=== PATIENT | male | born 1940 | race Caucasian/White ===

== ENCOUNTER → 2018-02-08 11:56 | Outpatient (CLI) | payer MEDICARE, OTHER, SELFPAY ==
[2018-02-08 13:11] LABS: Alanine Aminotransferase 28 IU/L (21-72); Albumin 4.2 g/dL (3.5-5.0); Albumin Globulin Ratio 1.1 (1.0-2.8); Alkaline Phosphatase 56 U/L (38-126); Aspartate Aminotransferase 24 IU/L (17-59); BUN Creatinine Ratio 22.1 (6-22); Bilirubin Total 0.6 mg/dL (0.2-1.3); Blood Urea Nitrogen 31 mg/dL (9-20); Calcium 9.4 mg/dL (8.4-10.2); Carbon Dioxide 29 mmol/L (22-32); Chloride 99 mmol/L (98-107); Estimated Glomerular Filt Rate 49.3 mL/min (>60); Globulin 3.9 g/dL (1.7-4.1); Glucose 115 mg/dL (80-110); HEMOLYSIS < 15 (0-50); Sodium 140 mmol/L (137-145); Total Protein 8.1 g/dL (6.3-8.2)
== END ==
PROVIDERS: Family Provider Family Medicine; PCP Family Medicine; Visit Provider Internal Medicine Cardiovascular Disease
DX: I50.22 Chronic systolic (congestive) heart failure (principal)
CPT/HCPCS: 36415; 80053

== ENCOUNTER 2018-03-04 14:52 | Inpatient (IN) | payer MEDICARE, OTHER, SELFPAY ==
[2018-03-04] VITALS (14 sets, daily range): BP systolic 116–129; BP diastolic 68–75; PULSE 28–94; RESP 19–98; TEMP 36.6–37.8; O2SAT 88–99
--- NOTE | 2018-03-04 15:31 | DI.RAD.S_ITS ---
PROCEDURE: XR CHEST 1V INDICATIONS: suspected sepsis TECHNIQUE: One view of the chest was acquired. COMPARISON: [facility], , CHEST 1 VIEW, 04/06/2017, 14:58. FINDINGS: Surgical changes and devices: There is a left-sided Port-A-Cath central line identified with the tip unchanged in position. Lungs and pleura: There is developing interstitial prominence within the infrahilar region on the right. Mild elevation of the right diaphragm is similar to the prior study. No lobar consolidation or large effusion is appreciated. Mediastinum: Mediastinal contours appear normal. Heart size is normal. Bones and chest wall: No suspicious bony lesions. Overlying soft tissues appear unremarkable. IMPRESSION: Probable minimal scar versus atelectasis within the right infrahilar region. Superimposed pneumonia is difficult to exclude. Dictated by: Ramo Villasenor M.D. on 03/04/2018 at 15:54 Approved by: Ramo Villasenor M.D. on 03/04/2018 at 15:56
--- NOTE | 2018-03-04 15:35 | PC.NURSE ---
Done by Latoya Garcia RN
--- NOTE | 2018-03-04 15:37 | PC.NURSE ---
Port accessed in triage room and labs obtained. Patient placed in Rm 10 at this time and I called RT to bedside for EKG as well as possible nebulizer. Patient has coarse wheezing to auscultation, has not been using inhalers. states he has inhalers as needed for episodes like this when he gets sick. 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 Saw doctor this week who was busy and unable to test for the cancer coming back at that time. She states this is the first time he has been in the hospital in a long time.
[2018-03-04 15:43] LABS: Add Manual Diff / Slide Review NO; Basophils Percent Auto 1.1 % (0-2); Eosinophils Percent Auto 0.3 % (2-4); Hemoglobin 12.5 g/dL (13.5-17.5); Lymphocytes Percent Auto 7.5 % (25-40); Mean Corpuscular HGB Conc 33.9 % (30-36); Mean Corpuscular Hemoglobin 31.9 PG (26-34); Mean Corpuscular Volume 94.1 fL (80-100); Monocytes Percent Auto 7.2 % (3-14); Neutrophils Absolute Auto 5000 /uL (3000-5900); Neutrophils Percent Auto 83.9 % (50-75); Platelet Count 130 X10^3/uL (150-400); Red Blood Cell Count 3.93 X10^6/uL (4.5-5.9); Red Cell Distribution Width 17.8 % (11.6-14.8); White Blood Cell Count 5.9 X10^3/uL (4.5-11.0)
[2018-03-04] MEDS: ALBUTEROL/IPRATROPIUM 3 ML AMPUL INH (15:43)
[2018-03-04 15:46] LABS: Prothrombin Time 31.8 SECONDS (10.1-12.7)
--- NOTE | 2018-03-04 15:47 | ED_ITS ---
HPI - Fever General Chief Complaint: Fever Stated Complaint: COUGH,FEVER Time Seen by Provider: 03/04/18 15:47 Source: patient and family Mode of arrival: ambulatory Limitations: no limitations History of Present Illness HPI Narrative: 77-year-old male with a history of myelodysplastic syndrome here for evaluation of 3-4 days of not feeling well in shortness of breath with worsening of that last evening and into today. Patient states that he feels like he short of breath. No chest pain. Does have a productive cough. Does have a fever. States that he has not been ambulating however this may be secondary to pain in his left foot. states that he has been inactive for the past couple days. No recent antibiotics. Not currently on chemotherapy treatment. Related Data Home Medications Medication Instructions Recorded Confirmed calcitonin (salmon) 1 puff NS QDAY #3.7 ml 07/12/16 03/04/18 furosemide 40 mg PO QDAY 01/24/18 03/04/18 Glucose: Test Strips 1 str MISCELLANEOUS DIRECTED 03/04/18 03/04/18 hydrocortisone 10 mg PO BEDTIME 03/04/18 03/04/18 hydrocortisone 30 mg PO BID 03/04/18 03/04/18 metoprolol tartrate 25 mg PO BID 03/04/18 03/04/18 omeprazole 20 mg PO BEDTIME 03/04/18 03/04/18 warfarin [Coumadin] 1 mg PO MOWEFR 03/04/18 03/04/18 warfarin [Coumadin] 3 mg PO QPM 03/04/18 03/04/18 Previous Rx's Medication Instructions Recorded metformin [Glucophage] 500 mg PO BIDCC #60 tab 11/24/17 potassium chloride [Klor-Con M20] 20 meq PO TIDCC #90 tab 11/30/17 famciclovir 250 mg PO Q12H #120 tab 01/24/18 tramadol 50 mg tablet 50 mg PO Q4H PRN #60 tab 02/23/18 Allergies Allergy/AdvReac Type Severity Reaction Status Date / Time No Known Drug Allergies Allergy Unknown Unverified 03/04/18 14:23 [NO KNOWN DRUG ALLERGIES] promethazine [PROMETHAZINE] AdvReac Unknown restlessnes Unverified 03/04/18 14: 23 s Review of Systems Constitutional Reports body ache(s), Reports chills, Reports fatigue, Reports fever(s), Denies headache(s), Reports lethargy and Reports malaise ENT Ears, Nose, Mouth, and Throat: Denies headache(s) Cardiovascular Denies chest pain, Denies palpitations and Denies dyspnea Respiratory Denies cough and Denies dyspnea Neurologic Denies headache(s) Endocrine Reports fatigue and Denies palpitations PFSH Family History Mother Dementia Social History Smoking Status: Never smoker Exam Initial Vital Signs Initial Vital Signs: Vital Signs Temperature 100.1 F H 03/04/18 14:56 Pulse Rate 93 H 03/04/18 14:56 Respiratory Rate 22 03/04/18 14:56 Blood Pressure 128/74 H 03/04/18 14:56 Pulse Oximetry 93 03/04/18 14:56 Const General: cooperative, comfortable, well groomed and No acute distress HENMT Head: normal to inspection and normocephalic Ears: TM's normal bilaterally Resp Effort & Inspection: able to speak in complete sentences, audible wheezes, cough , labored, no nasal flaring, no retractions, no stridor and tachypneic Auscultation: crackles bilaterally, rhonchi upper bilaterally and lower bilaterally and wheezes right lower and right upper Cardio Rate: regular rate Rhythm: regular rhythm Pulses: radial pulses present GI Inspection: non-distended Palpation: soft, No firm and No guarding Neuro General: alert, awake and oriented x3 Cognition: normal cognition Speech: speech normal Extrem General: normal to inspection and full ROM Course Orders Ordered: ED Orders 03/04/18 15:15 Complete Blood Count AUTO DIFF Stat Lactate (Lactic Acid) Stat Partial Thromboplastin Time Stat Procalcitonin Stat Prothrombin Time INR Stat 03/04/18 15:30 Blood Culture Stat 03/04/18 15:31 XR chest 1V Stat Comprehensive Metabolic Panel Stat Lipase Stat 03/04/18 15:44 EKG-12 Lead Stat 03/04/18 17:14 Partial Thromboplastin Time Stat Levofloxacin (Levaquin) 750 mg in 150 mls @ 100 mls/hr IV NOW ONE Stop: 03/04/18 18:01 Last Admin: 03/04/18 16:41 Dose: 100 mls/hr Discontinued Medications Acetaminophen (Tylenol) 650 mg PO NOW ONE Stop: 03/04/18 16:33 Last Admin: 03/04/18 16:41 Dose: 650 mg Albuterol/Ipratropium (Duoneb) 3 ml INH NOW ONE Stop: 03/04/18 15:42 Last Admin: 03/04/18 15:43 Dose: 3 ml Vital Signs - 8 hr 03/04/18 14:56 03/04/18 15:25 03/04/18 15:30 Temperature 100.1 F H Pulse Rate 93 H 94 H 28 L Respiratory Rate 22 33 H 98 H Blood Pressure 128/74 H Blood Pressure [Left Arm] 118/68 Blood Pressure [Left Wrist] 118/68 118/68 Pulse Oximetry 93 88 L 93 03/04/18 15:36 03/04/18 15:55 03/04/18 16:00 Temperature Pulse Rate 90 89 Respiratory Rate 24 27 H Blood Pressure Blood Pressure [Left Arm] 117/70 Blood Pressure [Left Wrist] Pulse Oximetry 98 96 95 03/04/18 16:30 03/04/18 17:00 Temperature Pulse Rate 88 86 Respiratory Rate 19 23 Blood Pressure Blood Pressure [Left Arm] 120/74 128/74 H Blood Pressure [Left Wrist] Pulse Oximetry 99 MDM - Fever Lab Data Result diagrams: 03/04/18 15:15 Lab Results 03/04/18 03/04/18 03/04/18 Range/Units 15:15 15:15 15:15 WBC 5.9 (4.5-11.0) X10^3/uL RBC 3.93 L (4.5-5.9) X10^6/uL Hgb 12.5 L (13.5-17.5) g/dL Hct 37.0 L (41-53) % MCV 94.1 (80-100) fL MCH 31.9 (26-34) PG MCHC 33.9 (30-36) % RDW 17.8 H (11.6-14.8) % Plt Count 130 L (150-400) X10^3/uL Neut % (Auto) 83.9 H (50-75) % Lymph % (Auto) 7.5 L (25-40) % [place] % (Auto) 7.2 (3-14) % Eos % (Auto) 0.3 L (2-4) % Baso % (Auto) 1.1 (0-2) % Neut # (Auto) 5000 (8623-2625) /uL PT 31.8 H (10.1-12.7) SECONDS INR 3.0 H (0.9-1.3) APTT 81 H* (26.4-36.2) SECONDS Lactate (0.7-2.1) mmol/L Procalcitonin 0.80 H (<0.5) ng/mL 03/04/18 03/04/18 Range/Units 15:15 17:14 WBC (4.5-11.0) X10^3/uL RBC (4.5-5.9) X10^6/uL Hgb (13.5-17.5) g/dL Hct (41-53) % MCV (80-100) fL MCH (26-34) PG MCHC (30-36) % RDW (11.6-14.8) % Plt Count (150-400) X10^3/uL Neut % (Auto) (50-75) % Lymph % (Auto) (25-40) % [place] % (Auto) (3-14) % Eos % (Auto) (2-4) % Baso % (Auto) (0-2) % Neut # (Auto) (2115-4862) /uL PT (10.1-12.7) SECONDS INR (0.9-1.3) APTT 44 H D (26.4-36.2) SECONDS Lactate 1.0 (0.7-2.1) mmol/L Procalcitonin (<0.5) ng/mL Imaging Data Chest x-ray: Radiologist's impression: PROCEDURE: XR CHEST 1V INDICATIONS: suspected sepsis TECHNIQUE: One view of the chest was acquired. COMPARISON: [facility], CHEST 1 VIEW, 04/06/2017, 14:58. FINDINGS: Surgical changes and devices: There is a left-sided Port-A-Cath central line identified with the tip unchanged in position. Lungs and pleura: There is developing interstitial prominence within the infrahilar region on the right. Mild elevation of the right diaphragm is similar to the prior study. No lobar consolidation or large effusion is appreciated. Mediastinum: Mediastinal contours appear normal. Heart size is normal. Bones and chest wall: No suspicious bony lesions. Overlying soft tissues appear unremarkable. IMPRESSION: Probable minimal scar versus atelectasis within the right infrahilar region. Superimposed pneumonia is difficult to exclude. Dictated by: Ramo Villasenor M.D. on 03/04/2018 at 15:54 ECG Data Attestation: I personally reviewed and interpreted this ECG as follows: Prior ECG tracings: not available for review Interpretation: Sinus rhythm Ventricular rate of 93 Normal QRS Normal QTC Normal axis No ST T wave changes MDM Narrative Medical decision making narrative: Patient with a chest x-ray concerning for right-sided pneumonia and clinically patient has pneumonia. Has coarse breath sounds bilaterally. Is tachypneic. Desatted to the mid upper 80s on room air upon arrival which improved with oxygen by nasal cannula. Patient reports only minimal improvement after the albuterol neb here in the ER. Does not have an elevated white count and his lactate is not elevated. Patient is not hypotensive. I feel secondary to his clinical status the fact that he is hypoxic that an inpatient stay with IV antibiotics is warranted. Blood cultures were ordered. Some labs were pending at the time of arrival. Discussed the case with Dr. Higginbotham with Internal Medicine who will admit the patient for IV antibiotics. Levaquin started here in the emergency department. Discharge Plan Departure Patient Disposition: Admitted As Inpatient Clinical Impression: Pneumonia, [id number], Hypoxia Interventions: ED Discharge Assessment Last Done: 03/04/18 17:16 Admit Date/Time: 03/04/18 17:17 Admit Provider: Mary Higginbotham
[2018-03-04 16:02] LABS: PTT Partial Thromboplastin Tim 81 SECONDS (26.4-36.2)
[2018-03-04] MEDS: ACETAMINOPHEN 325 MG TABLET 650 MG PO (16:41)
[2018-03-04] MEDS: levoFLOXacin 750 MG/150 ML PIGGYBACK 100 MG IV (16:41)
[2018-03-04 17:32] LABS: PTT Partial Thromboplastin Tim 44 SECONDS (26.4-36.2)
--- NOTE | 2018-03-04 18:10 | PC.NURSE ---
patient is a&ox4, 95% on 1.5L, denies pain at this time. patient states he feels SOB. patient demonstrates ability to transfer from stretcher to bed SBA. patient declined to have yellow socks put on at this time, reminded patient to not get up by himself and gave patient call light and demonstrated its use. patient verbalizes understanding. pulses to ble are palpable, patient states he has baseline neuropathy. bowel tones are hypoactive. unable to hear heart sounds at this time, as lung sounds are so loud. lung sounds are extremely coarse with wheezes on expiration. patient states his cough is productive and his ribs hurt from coughing so much. sputum is green. patient denies falling recently. patient states he is not diabetic but does run high blood sugars d/t medications he takes at home that elevate it. 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 patient's temp is 98.6 F at this time, will continue to monitor.
--- NOTE | 2018-03-04 19:55 | PM.HP.1 ---
History of Present Illness Date Patient Seen: 03/04/18 Time Patient Seen: 19:30 Chief complaint: COUGH,FEVER Narrative: 77-year-old man, patient of Dr. Harden, with history of myelodysplastic syndrome who presented to the [facility] Emergency Room for dry cough and sore throat for 3-4 days fever and shortness of breath for 1 day. He was noted to have room air oxygen saturation of 88% at the ER. He was also having significant shortness of breath. Chest x-ray revealed prominent interstitial markings. He was diagnosed with possible bacterial pneumonia. He received IV Levaquin and nebulizer treatment. He was admitted to the medicine floor. Patient History Comment: Shingles about 5-6 weeks ago Myelodysplastic syndrome Sweet syndrome Adrenal insufficiency Congestive heart failure, echocardiogram in June of 2017 showed ejection fraction of 55-60% History of DVT, on Coumadin for anti coagulation Type 2 diabetes Prothrombin 2 gene mutation Hiatal hernia Chronic right leg ulcer Family & Social History Social History: household members spouse Prior Living Arrangements House Safety & Behavioral: Feels Safe in Current Yes Environment Suicidal Ideation Description None Suicide Plan Description No Plan Tobacco & Substance use: Smoking Status Former smoker alcohol intake frequency a few times a week Substance Use Type does not use Comment: He is . He lives with his . He drinks alcohol rarely. He denies cigarette smoking. Family history: Noncontributory Meds Home Medications Medication Instructions Recorded Confirmed Type calcitonin (salmon) 1 puff NS QDAY #3.7 ml 07/12/16 03/04/18 History metformin [Glucophage] 500 mg PO BIDCC #60 tab 11/24/17 03/04/18 Rx potassium chloride [Klor-Con M20] 20 meq PO TIDCC #90 tab 11/30/17 03/04/18 Rx famciclovir 250 mg PO Q12H #120 tab 01/24/18 03/04/18 Rx furosemide 40 mg PO QDAY 01/24/18 03/04/18 History tramadol 50 mg tablet 50 mg PO Q4H PRN #60 tab 02/23/18 03/04/18 Rx Glucose: Test Strips 1 str MISCELLANEOUS DIRECTED 03/04/18 03/04/18 History hydrocortisone 10 mg PO BEDTIME 03/04/18 03/04/18 History hydrocortisone 30 mg PO BID 03/04/18 03/04/18 History metoprolol tartrate 25 mg PO BID 03/04/18 03/04/18 History omeprazole 20 mg PO BEDTIME 03/04/18 03/04/18 History warfarin [Coumadin] 1 mg PO MOWEFR 03/04/18 03/04/18 History warfarin [Coumadin] 3 mg PO QPM 03/04/18 03/04/18 History Allergies Allergy/AdvReac Type Severity Reaction Status Date / Time No Known Drug Allergies Allergy Unknown Unverified 03/04/18 14:23 [NO KNOWN DRUG ALLERGIES] promethazine [PROMETHAZINE] AdvReac Unknown restlessnes Unverified 03/04/18 14:23 s Review of Systems Constitutional Constitutional: Reports fatigue and Reports fever(s) Cardiovascular Cardiovascular: Reports shortness of breath Comments: No chest pain Respiratory Respiratory: Reports as per HPI, Reports cough and Reports dyspnea Gastrointestinal Comments: Denies abdominal pain, no nausea or vomiting Genitourinary Comments: Denies dysuria Endocrine Endocrine: Reports fatigue Exam Vital Signs (past 8 hours): Vital Signs - 8 hr 03/04/18 14:56 03/04/18 15:25 03/04/18 15:30 Temperature 100.1 F H Pulse Rate 93 H 94 H 28 L Respiratory Rate 22 33 H 98 H Blood Pressure 128/74 H Blood Pressure [Left Arm] 118/68 Blood Pressure [Left Wrist] 118/68 118/68 Pulse Oximetry 93 88 L 93 03/04/18 15:36 03/04/18 15:55 03/04/18 16:00 Temperature Pulse Rate 90 89 Respiratory Rate 24 27 H Blood Pressure Blood Pressure [Left Arm] 117/70 Blood Pressure [Left Wrist] Pulse Oximetry 98 96 95 03/04/18 16:30 03/04/18 17:00 03/04/18 17:45 Temperature 98.6 F Pulse Rate 88 86 83 Respiratory Rate 19 23 20 Blood Pressure 119/75 Blood Pressure [Left Arm] 120/74 128/74 H Blood Pressure [Left Wrist] Pulse Oximetry 99 97 03/04/18 18:30 Temperature Pulse Rate Respiratory Rate Blood Pressure Blood Pressure [Left Arm] Blood Pressure [Left Wrist] Pulse Oximetry 95 Pulse Oximetry 95 Oxygen Delivery Method Nasal Cannula Oxygen Flow Rate 2 Narrative Exam Narrative: GENERAL: Obese middle-age man in no acute distress. HEENT: Head normocephalic, atraumatic. Eyes pupils equal round NECK: Supple, no JVD, CHEST: Diffuse expiratory wheezing, rhonchi in the right lower lung field, CARDIAC: Regular rate and rhythm without murmurs, rubs or gallops. ABDOMEN: Soft, nontender. Normoactive bowel sounds all 4 quadrants. No guarding or rebound. EXTREMITIES: Normal range of motion, no clubbing or edema. NEUROLOGICAL: Alert and oriented; Normal muscle strength. SKIN: Warm, dry, no petechiae, Objective Imaging Chest x-ray: Radiologist's impression: Probable minimal scar versus atelectasis within the right infrahilar region. Superimposed pneumonia is difficult to exclude. Labs Result Diagrams: 03/04/18 15:15 Labs: Laboratory Results - last 24 hr 03/04/18 03/04/18 03/04/18 15:15 15:15 15:15 WBC 5.9 RBC 3.93 L Hgb 12.5 L Hct 37.0 L MCV 94.1 MCH 31.9 MCHC 33.9 RDW 17.8 H Plt Count 130 L Neut % (Auto) 83.9 H Lymph % (Auto) 7.5 L [place] % (Auto) 7.2 Eos % (Auto) 0.3 L Baso % (Auto) 1.1 Neut # (Auto) 5000 PT 31.8 H INR 3.0 H APTT 81 H* Lactate Procalcitonin 0.80 H 03/04/18 03/04/18 15:15 17:14 WBC RBC Hgb Hct MCV MCH MCHC RDW Plt Count Neut % (Auto) Lymph % (Auto) [place] % (Auto) Eos % (Auto) Baso % (Auto) Neut # (Auto) PT INR APTT 44 H D Lactate 1.0 Procalcitonin Assessment & Plan Plan: Assessment/Plan Narrative: 1. Possible bacterial pneumonia: He was started on IV Levaquin in the ER. We will continue IV Levaquin. He has significant bronchospasm. We will start IV Solu-Medrol and albuterol nebulizer treatment. Use nasal cannula oxygen as needed. 2. Acute hypoxic respiratory failure secondary to possible bacterial pneumonia: He is currently on 2 L nasal cannula oxygen. Continue nasal cannula oxygen as needed. 2. Fever: Possibly secondary to the bacterial pneumonia. We will also check influenza antigen and urine analysis to rule out other causes of fever 3. History of DVT: Continue Coumadin for anticoagulation. INR is 3.0 today. Recheck INR in the morning. Adjust Coumadin dose if needed 4. Chronic congestive heart failure with preserved ejection fraction: He does not have clinical signs of acute exacerbation. Continue outpatient medication with furosemide and metoprolol. Monitor his daily weight, input and output. 5. Adrenal insufficiency: Continue hydrocortisone per outpatient dosing. He is also on IV Solu-Medrol for all bronchospasm. Quality VTE Deep Vein Thrombosis/Pulmonary Embolism Present on Admission: No
--- NOTE | 2018-03-04 20:09 | P.HP_ITS ---
History of Present Illness Date Patient Seen: 03/04/18 Time Patient Seen: 19:30 Chief complaint: COUGH,FEVER Narrative: 77-year-old man, patient of Dr. Harden, with history of myelodysplastic syndrome who presented to the [facility] Emergency Room for dry cough and sore throat for 3-4 days fever and shortness of breath for 1 day. He was noted to have room air oxygen saturation of 88% at the ER. He was also having significant shortness of breath. Chest x-ray revealed prominent interstitial markings. He was diagnosed with possible bacterial pneumonia. He received IV Levaquin and nebulizer treatment. He was admitted to the medicine floor. Patient History Comment: Shingles about 5-6 weeks ago Myelodysplastic syndrome Sweet syndrome Adrenal insufficiency Congestive heart failure, echocardiogram in June of 2017 showed ejection fraction of 55-60% History of DVT, on Coumadin for anti coagulation Type 2 diabetes Prothrombin 2 gene mutation Hiatal hernia Chronic right leg ulcer Family & Social History Social History: household members spouse Prior Living Arrangements House Safety & Behavioral: Feels Safe in Current Yes Environment Suicidal Ideation Description None Suicide Plan Description No Plan Tobacco & Substance use: Smoking Status Former smoker alcohol intake frequency a few times a week Substance Use Type does not use Comment: He is . He lives with his . He drinks alcohol rarely. He denies cigarette smoking. Family history: Noncontributory Meds Home Medications Medication Instructions Recorded Confirmed Type calcitonin (salmon) 1 puff NS QDAY #3.7 ml 07/12/16 03/04/18 History metformin [Glucophage] 500 mg PO BIDCC #60 tab 11/24/17 03/04/18 Rx potassium chloride [Klor-Con M20] 20 meq PO TIDCC #90 tab 11/30/17 03/04/18 Rx famciclovir 250 mg PO Q12H #120 tab 01/24/18 03/04/18 Rx furosemide 40 mg PO QDAY 01/24/18 03/04/18 History tramadol 50 mg tablet 50 mg PO Q4H PRN #60 tab 02/23/18 03/04/18 Rx Glucose: Test Strips 1 str MISCELLANEOUS DIRECTED 03/04/18 03/04/18 History hydrocortisone 10 mg PO BEDTIME 03/04/18 03/04/18 History hydrocortisone 30 mg PO BID 03/04/18 03/04/18 History metoprolol tartrate 25 mg PO BID 03/04/18 03/04/18 History omeprazole 20 mg PO BEDTIME 03/04/18 03/04/18 History warfarin [Coumadin] 1 mg PO MOWEFR 03/04/18 03/04/18 History warfarin [Coumadin] 3 mg PO QPM 03/04/18 03/04/18 History Allergies Allergy/AdvReac Type Severity Reaction Status Date / Time No Known Drug Allergies Allergy Unknown Unverified 03/04/18 14:23 [NO KNOWN DRUG ALLERGIES] promethazine [PROMETHAZINE] AdvReac Unknown restlessnes Unverified 03/04/18 14: 23 s Review of Systems Constitutional Constitutional: Reports fatigue and Reports fever(s) Cardiovascular Cardiovascular: Reports shortness of breath Comments: No chest pain Respiratory Respiratory: Reports as per HPI, Reports cough and Reports dyspnea Gastrointestinal Comments: Denies abdominal pain, no nausea or vomiting Genitourinary Comments: Denies dysuria Endocrine Endocrine: Reports fatigue Exam Vital Signs (past 8 hours): Vital Signs - 8 hr 3 03/04/18 14:56 03/04/18 15:25 03/04/18 15:30 Temperature 100.1 F H Pulse Rate 93 H 94 H 28 L Respiratory Rate 22 33 H 98 H Blood Pressure 128/74 H Blood Pressure [Left Arm] 118/68 Blood Pressure [Left Wrist] 118/68 118/68 Pulse Oximetry 93 88 L 93 3 03/04/18 15:36 03/04/18 15:55 03/04/18 16:00 Temperature Pulse Rate 90 89 Respiratory Rate 24 27 H Blood Pressure Blood Pressure [Left Arm] 117/70 Blood Pressure [Left Wrist] Pulse Oximetry 98 96 95 3 03/04/18 16:30 03/04/18 17:00 03/04/18 17:45 Temperature 98.6 F Pulse Rate 88 86 83 Respiratory Rate 19 23 20 Blood Pressure 119/75 Blood Pressure [Left Arm] 120/74 128/74 H Blood Pressure [Left Wrist] Pulse Oximetry 99 97 3 03/04/18 18:30 Temperature Pulse Rate Respiratory Rate Blood Pressure Blood Pressure [Left Arm] Blood Pressure [Left Wrist] Pulse Oximetry 95 Pulse Oximetry 95 Oxygen Delivery Method Nasal Cannula Oxygen Flow Rate 2 Narrative Exam Narrative: GENERAL: Obese middle-age man in no acute distress. HEENT: Head normocephalic, atraumatic. Eyes pupils equal round NECK: Supple, no JVD, CHEST: Diffuse expiratory wheezing, rhonchi in the right lower lung field, CARDIAC: Regular rate and rhythm without murmurs, rubs or gallops. ABDOMEN: Soft, nontender. Normoactive bowel sounds all 4 quadrants. No guarding or rebound. EXTREMITIES: Normal range of motion, no clubbing or edema. NEUROLOGICAL: Alert and oriented; Normal muscle strength. SKIN: Warm, dry, no petechiae, Objective Imaging Chest x-ray: Radiologist's impression: Probable minimal scar versus atelectasis within the right infrahilar region. Superimposed pneumonia is difficult to exclude. Labs Result Diagrams: 03/04/18 15:15 Labs: Laboratory Results - last 24 hr 03/04/18 03/04/18 03/04/18 15:15 15:15 15:15 WBC 5.9 RBC 3.93 L Hgb 12.5 L Hct 37.0 L MCV 94.1 MCH 31.9 MCHC 33.9 RDW 17.8 H Plt Count 130 L Neut % (Auto) 83.9 H Lymph % (Auto) 7.5 L [place] % (Auto) 7.2 Eos % (Auto) 0.3 L Baso % (Auto) 1.1 Neut # (Auto) 5000 PT 31.8 H INR 3.0 H APTT 81 H* Lactate Procalcitonin 0.80 H 03/04/18 03/04/18 15:15 17:14 WBC RBC Hgb Hct MCV MCH MCHC RDW Plt Count Neut % (Auto) Lymph % (Auto) [place] % (Auto) Eos % (Auto) Baso % (Auto) Neut # (Auto) PT INR APTT 44 H D Lactate 1.0 Procalcitonin Assessment & Plan Plan: Assessment/Plan Narrative: 1. Possible bacterial pneumonia: He was started on IV Levaquin in the ER. We will continue IV Levaquin. He has significant bronchospasm. We will start IV Solu-Medrol and albuterol nebulizer treatment. Use nasal cannula oxygen as needed. 2. Acute hypoxic respiratory failure secondary to possible bacterial pneumonia : He is currently on 2 L nasal cannula oxygen. Continue nasal cannula oxygen as needed. 2. Fever: Possibly secondary to the bacterial pneumonia. We will also check influenza antigen and urine analysis to rule out other causes of fever 3. History of DVT: Continue Coumadin for anticoagulation. INR is 3.0 today. Recheck INR in the morning. Adjust Coumadin dose if needed 4. Chronic congestive heart failure with preserved ejection fraction: He does not have clinical signs of acute exacerbation. Continue outpatient medication with furosemide and metoprolol. Monitor his daily weight, input and output. 5. Adrenal insufficiency: Continue hydrocortisone per outpatient dosing. He is also on IV Solu-Medrol for all bronchospasm. Quality VTE Deep Vein Thrombosis/Pulmonary Embolism Present on Admission: No
[2018-03-04 21:06] LABS: Influenza A and B by PCR Rapid Negative (Negative)
[2018-03-04 21:07] LABS: Alanine Aminotransferase 23 IU/L (21-72); Albumin 3.9 g/dL (3.5-5.0); Alkaline Phosphatase 63 U/L (38-126); Aspartate Aminotransferase 29 IU/L (17-59); BUN Creatinine Ratio 15.8 (6-22); Bilirubin Total 0.7 mg/dL (0.2-1.3); Blood Urea Nitrogen 19 mg/dL (9-20); Calcium 8.8 mg/dL (8.4-10.2); Carbon Dioxide 25 mmol/L (22-32); Chloride 98 mmol/L (98-107); Estimated Glomerular Filt Rate 58.9 mL/min (>60); Glucose 191 mg/dL (80-110); HEMOLYSIS < 15 (0-50); Lipase 41 U/L (23-300); Potassium 4.2 mmol/L (3.4-5.1); Sodium 134 mmol/L (137-145); Total Protein 7.9 g/dL (6.3-8.2)
[2018-03-04] MEDS: HYDROCORTISONE 10 MG TABLET PO (21:16)
[2018-03-04] MEDS: METFORMIN HCL 500 MG TABLET PO (21:16)
[2018-03-04] MEDS: METOPROLOL 25 MG TABLET PO (21:16)
[2018-03-04] MEDS: POTASSIUM CHLORIDE 20 MEQ TAB PO (21:16)
[2018-03-04] MEDS: FUROSEMIDE 40 MG TABLET PO (21:17)
[2018-03-04] MEDS: PANTOPRAZOLE 20 MG TABLET PO (21:17)
[2018-03-05] VITALS (15 sets, daily range): BP systolic 105–138; BP diastolic 61–77; PULSE 70–98; RESP 18–25; TEMP 35.9–38.1; O2SAT 1–98
[2018-03-05 05:31] LABS: Add Manual Diff / Slide Review NO; Basophils Percent Auto 1.1 % (0-2); Eosinophils Percent Auto 0.7 % (2-4); Hematocrit 36.2 % (41-53); Hemoglobin 12.2 g/dL (13.5-17.5); Lymphocytes Percent Auto 13.9 % (25-40); Mean Corpuscular HGB Conc 33.8 % (30-36); Mean Corpuscular Hemoglobin 31.7 PG (26-34); Mean Corpuscular Volume 93.9 fL (80-100); Monocytes Percent Auto 7.3 % (3-14); Neutrophils Absolute Auto 3600 /uL (3000-5900); Platelet Count 125 X10^3/uL (150-400); Red Blood Cell Count 3.86 X10^6/uL (4.5-5.9); Red Cell Distribution Width 17.7 % (11.6-14.8); White Blood Cell Count 4.7 X10^3/uL (4.5-11.0)
--- NOTE | 2018-03-05 05:33 | PC.NURSE ---
Addendum entered by Eli Daniels R.N. 03/05/18 06:23: Pt has decline scheduled Solu-Medrol this morning. Original Note: NOC Shift: Pt denies pain, reports feeling sob at rest, O2 mid 90's on 1.5L, NC. LS are coarse with wheezes throughout. 1PA/SBA to stand at the bedside to void with a urinal. Pt reported feeling mild nausea at approximately 0130, he was given saltine crackers, no further nausea reported. Pt is using the call light and making needs known.
[2018-03-05 05:35] LABS: Prothrombin Time 32.5 SECONDS (10.1-12.7)
[2018-03-05 05:40] LABS: BUN Creatinine Ratio 16.7 (6-22); Blood Urea Nitrogen 20 mg/dL (9-20); Calcium 8.9 mg/dL (8.4-10.2); Carbon Dioxide 29 mmol/L (22-32); Chloride 96 mmol/L (98-107); Estimated Glomerular Filt Rate 58.9 mL/min (>60); Glucose 127 mg/dL (80-110); HEMOLYSIS < 15 (0-50); Sodium 136 mmol/L (137-145)
[2018-03-05] MEDS: ALBUTEROL 1.25 MG/3 ML NEB (PEDIATRIC) INH ×2 (08:49→12:32)
--- NOTE | 2018-03-05 09:02 | RT ---
Acapella started to help bring up secretions. Had patient cough after.
[2018-03-05] MEDS: POTASSIUM CHLORIDE 20 MEQ TAB PO ×3 (09:13→17:15)
[2018-03-05] MEDS: METFORMIN HCL 500 MG TABLET PO ×2 (09:13→17:16)
[2018-03-05] MEDS: METOPROLOL 25 MG TABLET PO ×2 (09:14→20:46)
[2018-03-05] MEDS: CALCITONIN,SALMON, NASAL SPRAY 1 SPRAYS NASAL (09:14)
[2018-03-05] MEDS: FUROSEMIDE 40 MG TABLET PO (09:14)
[2018-03-05] MEDS: HYDROCORTISONE 10 MG TABLET 30 MG PO (09:15)
--- NOTE | 2018-03-05 10:22 | PC.NURSE ---
Addendum entered by Lidia Rice R.N. 03/05/18 15:13: TEMP - pt has had temp 100.5, does appear flushed, notified and new order rec'd and given 650mg po tylenol. Continue to enc pt to drink fluids, still has no appetite, did finish a clear ensure earlier. Original Note: AM NOTE -awakens easily, appears fatigued, sob at rest s/moderately labored breathing, rr 24, 02 sat 1l 97%,expir wheezes throughout upper to lower lobes, RT notified and in for assessment and albuterol tmt, occassional congested, non productive cough, pt req that 02 removed and sats remained 93-96% ra, poor appetite, did drink juice and has a clear ensure at bedside to sip.
--- NOTE | 2018-03-05 11:38 | P.PN_ITS ---
Subjective Date Patient Seen: 03/05/18 Time Patient Seen: 11:35 Interval history: He says he is not much better Exam Vital Signs (past 8 hours): - 03/05/18 05:08 03/05/18 08:00 03/05/18 08:54 Temperature 96.7 F L 99.1 F Pulse Rate 83 90 93 H Respiratory Rate 25 H 20 Blood Pressure 138/76 H 129/69 H Pulse Oximetry 98 98 1 L 03/05/18 09:03 03/05/18 11:27 Temperature Pulse Rate Respiratory Rate Blood Pressure Pulse Oximetry 96 93 Oxygen Delivery Method Room Air Oxygen Flow Rate 1 Narrative Exam Narrative: He is resting quietly HEENT exam unremarkable Lungs diffuse wheezing prolonged expiratory phase Heart regular rhythm Abdomen soft obese nontender Extremities trace edema Neuro exam unremarkable Skin warm and moist Objective Labs Result Diagrams: 03/05/18 05:16 03/05/18 05:16 Labs: Laboratory Results - last 24 hr 03/04/18 03/04/18 03/04/18 15:15 15:15 15:15 WBC 5.9 RBC 3.93 L Hgb 12.5 L Hct 37.0 L MCV 94.1 MCH 31.9 MCHC 33.9 RDW 17.8 H Plt Count 130 L Neut % (Auto) 83.9 H Lymph % (Auto) 7.5 L [place] % (Auto) 7.2 Eos % (Auto) 0.3 L Baso % (Auto) 1.1 Neut # (Auto) 5000 PT 31.8 H INR 3.0 H APTT 81 H* Sodium Potassium Chloride Carbon Dioxide BUN Creatinine Estimated GFR BUN/Creatinine Ratio Glucose Lactate Calcium Total Bilirubin AST ALT Alkaline Phosphatase Total Protein Albumin Globulin Albumin/Globulin Ratio Lipase Procalcitonin 0.80 H Influenza A & B (PCR) 03/04/18 03/04/18 03/04/18 15:15 15:15 17:14 WBC RBC Hgb Hct MCV MCH MCHC RDW Plt Count Neut % (Auto) Lymph % (Auto) [place] % (Auto) Eos % (Auto) Baso % (Auto) Neut # (Auto) PT INR APTT 44 H D Sodium 134 L Potassium 4.2 Chloride 98 Carbon Dioxide 25 BUN 19 Creatinine 1.20 Estimated GFR 58.9 L BUN/Creatinine Ratio 15.8 Glucose 191 H Lactate 1.0 Calcium 8.8 Total Bilirubin 0.7 AST 29 ALT 23 Alkaline Phosphatase 63 Total Protein 7.9 Albumin 3.9 Globulin 4.0 Albumin/Globulin Ratio 1.0 Lipase 41 Procalcitonin Influenza A & B (PCR) 03/04/18 03/05/18 03/05/18 20:00 05:16 05:16 WBC 4.7 RBC 3.86 L Hgb 12.2 L Hct 36.2 L MCV 93.9 MCH 31.7 MCHC 33.8 RDW 17.7 H Plt Count 125 L Neut % (Auto) 77.0 H Lymph % (Auto) 13.9 L [place] % (Auto) 7.3 Eos % (Auto) 0.7 L Baso % (Auto) 1.1 Neut # (Auto) 3600 PT 32.5 H INR 3.0 H APTT Sodium Potassium Chloride Carbon Dioxide BUN Creatinine Estimated GFR BUN/Creatinine Ratio Glucose Lactate Calcium Total Bilirubin AST ALT Alkaline Phosphatase Total Protein Albumin Globulin Albumin/Globulin Ratio Lipase Procalcitonin Influenza A & B (PCR) Negative 03/05/18 05:16 WBC RBC Hgb Hct MCV MCH MCHC RDW Plt Count Neut % (Auto) Lymph % (Auto) [place] % (Auto) Eos % (Auto) Baso % (Auto) Neut # (Auto) PT INR APTT Sodium 136 L Potassium 4.0 Chloride 96 L Carbon Dioxide 29 BUN 20 Creatinine 1.20 Estimated GFR 58.9 L BUN/Creatinine Ratio 16.7 Glucose 127 H Lactate Calcium 8.9 Total Bilirubin AST ALT Alkaline Phosphatase Total Protein Albumin Globulin Albumin/Globulin Ratio Lipase Procalcitonin Influenza A & B (PCR) Assessment & Plan Plan: Assessment/Plan Narrative: 1. Possible bacterial pneumonia: He was started on IV Levaquin in the ER. We will continue IV Levaquin. He has significant bronchospasm. He still has significant bronchospasms this morning he has refused steroid Solu-Medrol. He is afraid of taking Solu-Medrol for some reason he has been on chronic hydrocortisone. I will switch his oral hydrocortisone to IV 100 mg twice a day and see if we can help with the bronchospasms and also help with any adrenal insufficiency 2. Acute hypoxic respiratory failure secondary to possible bacterial pneumonia : He is currently on 2 L nasal cannula oxygen. Continue nasal cannula oxygen as needed. 2. Fever: Possibly secondary to the bacterial pneumonia. We will also check influenza antigen and urine analysis to rule out other causes of fever 3. History of DVT: Continue Coumadin for anticoagulation. INR still at 3.0 4. Chronic congestive heart failure with preserved ejection fraction: He does not have clinical signs of acute exacerbation. Continue outpatient medication with furosemide and metoprolol. Monitor his daily weight, input and output. 5. Adrenal insufficiency: Continue with hydrocortisone but at stress doses and also to help with bronchospasms Quality VTE Deep Vein Thrombosis/Pulmonary Embolism Present on Admission: No
[2018-03-05] MEDS: HYDROCORTISONE 100 MG/2 ML VIAL IV ×2 (12:08→17:16)
--- NOTE | 2018-03-05 12:09 | CM.DANOTE ---
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 Is this patient on Medicare? Yes Is the admit diagnosis the same? No Comment Likely pneumonia Prior Living Arrangements House Household Members spouse Type of transporation used prior to Drives own vehicle admit Independent with ADL's Yes Is patient alert and oriented? Yes Needs Assistance With Managing Medications Caregiver for Another No Comment Possible new home oxygen pending pt's needs and r/o HH after PT eval. Discharge Plan Home Transportation Arrangement Spouse can provide transport Review Status In Process Next Review Type Discharge Review Patient is a 77 year old male who was admitted on 03/04/18 for Cough Fever, likely pneumonia. Pt has [facility] and [facility] for insurance and his PCP is Dr. White. EMR was reviewed. Per MD, pt likely has bacterial pneumonia and currently on oxygen due to SOB. Per RN, pt weak and unsteady and needing assist in the room with ambulation. SW met bedside with pt and spouse and explained role and they confirmed that they live in [place] and pt is Independent with ADL's at baseline and still drives. Pt has a hx of [facility] and hx of [facility] in 2017 but no supportive services in place since then. Pt states his DPOA is his Priya. Preference is to d/c home when medically stable if possible but pt below baseline and could benefit from PT eval when SOB better controlled. Plan: SW to follow closely for possible PT eval and recommendations since pt is below baseline for any identified d/c planning needs. Pt still very SOB and weak. Melody El MSW
[2018-03-05] MEDS: ACETAMINOPHEN 325 MG TABLET 650 MG PO ×2 (15:03→20:48)
[2018-03-05] MEDS: levoFLOXacin 500 MG/100 ML PIGGYBACK 100 MG IV (17:10)
[2018-03-05] MEDS: WARFARIN 3 MG TABLET PO (17:15)
[2018-03-05] MEDS: FAMCICLOVIR 250 MG 250 EACH PO (20:46)
[2018-03-05] MEDS: PANTOPRAZOLE 20 MG TABLET PO (20:46)
[2018-03-06] VITALS (16 sets, daily range): BP systolic 116–143; BP diastolic 73–86; PULSE 66–92; RESP 12–24; TEMP 35.9–36.8; O2SAT 93–97
[2018-03-06] MEDS: HYDROCORTISONE 100 MG/2 ML VIAL IV ×2 (08:09→16:59)
[2018-03-06] MEDS: METOPROLOL 25 MG TABLET PO ×2 (08:28→21:15)
[2018-03-06] MEDS: FAMCICLOVIR 250 MG 250 EACH PO ×2 (08:29→21:16)
[2018-03-06] MEDS: METFORMIN HCL 500 MG TABLET PO ×2 (08:29→16:59)
[2018-03-06] MEDS: POTASSIUM CHLORIDE 20 MEQ TAB PO ×3 (08:29→16:59)
[2018-03-06] MEDS: CALCITONIN,SALMON, NASAL SPRAY 1 SPRAYS NASAL (08:29)
[2018-03-06] MEDS: FUROSEMIDE 40 MG TABLET PO (08:30)
[2018-03-06] MEDS: ALBUTEROL 1.25 MG/3 ML NEB (PEDIATRIC) INH ×4 (09:24→22:04)
--- NOTE | 2018-03-06 09:26 | PC.NURSE ---
Addendum entered by Lidia Rice R.N. 03/06/18 11:04: RESP - after shower, RT in and re-eval, continues with sob and expir wheezes, ra 93-94%, will monitor off . Original Note: AM NOTE - awakens easily, states feels slight improvement, able sleep last night, 1.5L 96%, occassional congested, non productive cough, expir wheezes throughout upper to lower, sob w/speech, RR 22, felt appetite improving and set up for breakfast, ate 50%, RT notified and tmt provided after breakfast.
--- NOTE | 2018-03-06 09:29 | RT ---
fLUTTER VALVE REINFORCED
--- NOTE | 2018-03-06 10:00 | RT ---
Air entry improved bilaterally with less wheezing. Pt. unable to state improvement
--- NOTE | 2018-03-06 11:34 | CM.DPC ---
DCP/continued: Reviewed chart. Met with patient explained CM/SW role. Patient alert and oriented, sitting up in bed at time of visit. Patient reports that he plans to return home when medically stable. Patient signed Important Message from Medicare during visit. White board updated with CM/SW name/number. At this time d/c plan uncertain. Pending progress during hospitalization, patient may benefit from PT evaluation. Patient uses CPAP at night and has in room. Patient resides with spouse/Priya in [place]. P: Pending. CM team to continue to follow closely. EVON Esquivel
--- NOTE | 2018-03-06 15:03 | P.PN_ITS ---
Subjective Date Patient Seen: 03/06/18 Time Patient Seen: 15:01 Interval history: Feeling a little better with the breathing today Exam Vital Signs (past 8 hours): - 03/06/18 07:18 03/06/18 08:00 03/06/18 09:21 Temperature 96.7 F L Pulse Rate 71 Respiratory Rate 20 Blood Pressure 143/82 H Pulse Oximetry 95 96 96 03/06/18 09:26 03/06/18 10:36 03/06/18 11:05 Temperature Pulse Rate 70 Respiratory Rate 16 Blood Pressure Pulse Oximetry 93 93 03/06/18 12:00 03/06/18 13:09 03/06/18 14:21 Temperature 98.3 F Pulse Rate 79 86 Respiratory Rate 16 12 Blood Pressure 116/73 Pulse Oximetry 95 97 95 Oxygen Delivery Method Room Air Oxygen Flow Rate 0 Narrative Exam Narrative: He is propped up in bed HEENT exam unremarkable Lungs diffuse rhonchi mildly prolonged expiratory phase Heart regular rhythm Abdomen soft obese nontender Lower extremities trace edema Neuro exam awake alert no focal deficits Objective Labs Result Diagrams: 03/05/18 05:16 03/05/18 05:16 Assessment & Plan Plan: Assessment/Plan Narrative: 1. Possible bacterial pneumonia: He was started on IV Levaquin in the ER. We will continue IV Levaquin. He has significant bronchospasm. He still has significant bronchospasms this morning he has refused steroid Solu-Medrol. He is afraid of taking Solu-Medrol for some reason he has been on chronic hydrocortisone. He has been taking the hydrocortisone IV and I think that it has been helpful he is on 100 q.12 hours b.i.d. actually will continue with that to help with the lungs as he is refusing the Solu-Medrol. 2. Acute hypoxic respiratory failure secondary to possible bacterial pneumonia : He is currently on 2 L nasal cannula oxygen. Continue nasal cannula oxygen as needed. 2. Fever: Possibly secondary to the bacterial pneumonia. We will also check influenza antigen and urine analysis to rule out other causes of fever 3. History of DVT: Continue Coumadin for anticoagulation. INR still at 3.0 4. Chronic congestive heart failure with preserved ejection fraction: He does not have clinical signs of acute exacerbation. Continue outpatient medication with furosemide and metoprolol. Monitor his daily weight, input and output. 5. Adrenal insufficiency: Continue with hydrocortisone but at stress doses and also to help with bronchospasms Quality VTE Deep Vein Thrombosis/Pulmonary Embolism Present on Admission: No
[2018-03-06] MEDS: levoFLOXacin 500 MG/100 ML PIGGYBACK 100 MG IV (16:58)
[2018-03-06] MEDS: WARFARIN 3 MG TABLET PO (16:59)
[2018-03-06] MEDS: PANTOPRAZOLE 20 MG TABLET PO (21:16)
--- NOTE | 2018-03-06 22:13 | RT ---
HOME CPAP IS ON STAND-BY AT BEDSIDE. PT STATES HE IS SELF-SUFFICIENT W/ HOME UNIT.
[2018-03-07] VITALS (13 sets, daily range): BP systolic 132–149; BP diastolic 72–85; PULSE 64–85; RESP 14–22; TEMP 36.1–36.8; O2SAT 93–98
--- NOTE | 2018-03-07 04:24 | PC.NURSE ---
Addendum entered by Mary Beth Gomes R.N. 03/07/18 06:54: Pt stated he did not sleep at all last night. Pt has strong dry cough this am once up and moving around in bed. pt does call, and waits for assistance. Pt asked for snack and ate it without issue. Pt asked for coffee this am and given. Pt belongings and call light within reach. bed in lowest, locked position. will continue to monitor pt for safety. Original Note: Assumed care of pt from outgoing shift at 2300 6-24. Pt asleep, cpap on and operational. Pt uses call light and waits for assistance. Pt compliant with nursing assessments. Pt denies pain. belongings and call light within reach. will continue to monitor pt for safety.
[2018-03-07] MEDS: METFORMIN HCL 500 MG TABLET PO ×2 (09:26→17:08)
[2018-03-07] MEDS: CALCITONIN,SALMON, NASAL SPRAY 1 SPRAYS NASAL (09:26)
[2018-03-07] MEDS: HYDROCORTISONE 100 MG/2 ML VIAL IV ×2 (09:26→17:07)
[2018-03-07] MEDS: POTASSIUM CHLORIDE 20 MEQ TAB PO ×3 (09:26→17:08)
[2018-03-07] MEDS: FUROSEMIDE 40 MG TABLET PO (09:27)
[2018-03-07] MEDS: FAMCICLOVIR 250 MG 250 EACH PO ×2 (09:27→20:25)
[2018-03-07] MEDS: METOPROLOL 25 MG TABLET PO ×2 (09:28→20:25)
--- NOTE | 2018-03-07 10:57 | P.PN_ITS ---
Subjective Date Patient Seen: 03/07/18 Time Patient Seen: 10:51 Interval history: Patient is sitting in bed in no acute distress. He states that his breathing has improved since yesterday. Exam Vital Signs (past 8 hours): - 03/07/18 03:40 03/07/18 08:02 03/07/18 08:03 Temperature 97 F L 98 F Pulse Rate 64 76 Respiratory Rate 22 17 Blood Pressure 135/79 H 137/72 H Pulse Oximetry 94 93 96 Oxygen Delivery Method Room Air Oxygen Flow Rate 0 Narrative Exam Narrative: He is sitting in bed with head of the bed elevated 45?. Const General: cooperative and comfortable Nutritional Appearance: obese Orientation: alert, awake and oriented x3 HENMT Head: normal to inspection, normocephalic and atraumatic Eyes General: appearance normal, both eyes and all related structures Pupils: PERRL Neck Neck: normal visual inspection and supple Other: No JVD or lymphadenopathy Chest Chest: normal inspection of the chest Resp Effort & Inspection: able to speak in complete sentences, audible wheezes and cough Auscultation: rhonchi lower bilaterally and wheezes expiratory wheezes and scattered wheezes Cardio Rate: regular rate Rhythm: regular rhythm Heart Sounds: S1 normal and S2 normal GI Inspection: distended Palpation: soft Auscultation: normal bowel sounds Other: Nontender to palpation Back/Spine/Pelvis Back: normal to inspection Skin General: dry skin and warm Lesions: lesion noted (Herpes simplex/shingles lesions over the left lower thorax healing well.) Rashes: rashes noted (Round, macular/patchy lesions noted on both lower extremities. Possible fungal in nature) Neuro General: alert, awake and oriented x3 Cognition: normal cognition Speech: speech normal Extrem General: normal exam except as noted, no pedal edema and no calf tenderness Psych Appearance: grossly normal Mental Status: mental status grossly normal Speech and Movement: speech and movement normal Mood: congruent mood Affect: normal affect Attitude: cooperative Thought Process: normal Thought Content: normal Judgment: judgment good Objective Labs Result Diagrams: 03/05/18 05:16 03/05/18 05:16 Assessment & Plan Plan: Assessment/Plan Narrative: 1. Possible bacterial pneumonia: He was started on IV Levaquin in the ER. We will continue IV Levaquin. He continues to have significant expiratory wheezes this morning but has refused steroid Solu-Medrol. He is afraid of taking Solu- Medrol for some reason as he has been on chronic hydrocortisone. He has been taking the hydrocortisone IV and I think that it has been helpful. he is on 100 q.12. I will continue with that to help with the lungs as he is refusing the Solu-Medrol. He is also receiving Proventil nebulizer treatments approximately every 4 -12 hr. as needed. 2. Acute hypoxic respiratory failure secondary to possible bacterial pneumonia : He is currently on room air with saturations running in the mid 90s. Respiratory rates in the teens to low 20s. Continue nasal cannula oxygen as needed for saturations less than 92. Blood cultures show no growth after 48 hr x2. 2. Fever: Possibly secondary to the bacterial pneumonia. Tests for influenza antigen was negative. His urinalysis was also negative for any signs of infection. 3. History of DVT: Continue Coumadin for anticoagulation. INR still at 3.0 4. Chronic congestive heart failure with preserved ejection fraction: He does not have clinical signs of acute exacerbation. Continue outpatient medication with furosemide and metoprolol. He appears to be net -1 L since admission. Monitor his daily weight, input and output. 5. Adrenal insufficiency: Continue with hydrocortisone but at stress doses and also to help with bronchospasms. 6. Disposition: He will benefit from at least another 24 hr stay in the hospital. If he continues to improve clinically, he may be discharged tomorrow. Quality VTE Deep Vein Thrombosis/Pulmonary Embolism Present on Admission: No
[2018-03-07] MEDS: ALBUTEROL 1.25 MG/3 ML NEB (PEDIATRIC) 2.5 MG INH (11:10)
[2018-03-07] MEDS: levoFLOXacin 500 MG/100 ML PIGGYBACK 100 MG IV (17:06)
[2018-03-07] MEDS: WARFARIN 3 MG TABLET PO (17:08)
[2018-03-07] MEDS: ALBUTEROL 2.5 MG/3 ML NEB (ADULT) INH (19:12)
[2018-03-07] MEDS: CLOTRIMAZOLE 1% CRM 30 GM 1 APPLIC TOP (20:25)
[2018-03-07] MEDS: PANTOPRAZOLE 20 MG TABLET PO (20:25)
[2018-03-08] VITALS (15 sets, daily range): BP systolic 114–140; BP diastolic 69–87; PULSE 60–91; RESP 16–20; TEMP 36.5–37.2; O2SAT 94–98
[2018-03-08] MEDS: ALBUTEROL 2.5 MG/3 ML NEB (ADULT) INH ×5 (06:03→22:49)
[2018-03-08 06:05] LABS: BUN Creatinine Ratio 25.8 (6-22); Blood Urea Nitrogen 31 mg/dL (9-20); Carbon Dioxide 29 mmol/L (22-32); Chloride 101 mmol/L (98-107); Estimated Glomerular Filt Rate 58.9 mL/min (>60); Glucose 129 mg/dL (80-110); HEMOLYSIS < 15 (0-50); Magnesium 1.8 mg/dL (1.6-2.3); Sodium 139 mmol/L (137-145)
[2018-03-08 06:06] LABS: Hematocrit 33.7 % (41-53); Hemoglobin 11.3 g/dL (13.5-17.5); Mean Corpuscular HGB Conc 33.4 % (30-36); Mean Corpuscular Hemoglobin 31.3 PG (26-34); Mean Corpuscular Volume 93.8 fL (80-100); Platelet Count 154 X10^3/uL (150-400); Red Cell Distribution Width 17.5 % (11.6-14.8); White Blood Cell Count 3.7 X10^3/uL (4.5-11.0)
[2018-03-08 06:13] LABS: Add Manual Diff / Slide Review YES
[2018-03-08 06:50] LABS: Anisocytosis 2+
[2018-03-08] MEDS: HYDROCORTISONE 100 MG/2 ML VIAL IV ×2 (09:11→18:00)
[2018-03-08] MEDS: METFORMIN HCL 500 MG TABLET PO ×2 (09:12→17:07)
[2018-03-08] MEDS: CLOTRIMAZOLE 1% CRM 30 GM 1 APPLIC TOP ×2 (09:12→20:40)
[2018-03-08] MEDS: POTASSIUM CHLORIDE 20 MEQ TAB PO ×2 (09:12→17:07)
[2018-03-08] MEDS: FAMCICLOVIR 250 MG 250 EACH PO ×2 (09:12→20:39)
[2018-03-08] MEDS: CALCITONIN,SALMON, NASAL SPRAY 1 SPRAYS NASAL (09:12)
[2018-03-08] MEDS: METOPROLOL 25 MG TABLET PO ×2 (09:13→20:39)
[2018-03-08] MEDS: FUROSEMIDE 40 MG TABLET PO (09:13)
--- NOTE | 2018-03-08 10:09 | PM.PN.1 ---
Subjective Date Patient Seen: 03/08/18 Time Patient Seen: 10:10 Interval history: Patient states he had a much better night last night. Appears to be sitting comfortably in a bedside chair. On room air Exam Vital Signs (past 8 hours): - 03/08/18 04:27 03/08/18 06:09 03/08/18 07:35 Temperature 97.7 F 98.4 F Pulse Rate 66 65 80 Respiratory Rate 17 16 18 Blood Pressure 120/78 135/81 H Pulse Oximetry 94 97 97 03/08/18 07:51 Temperature Pulse Rate Respiratory Rate Blood Pressure Pulse Oximetry 96 Oxygen Delivery Method Room Air Oxygen Flow Rate 2 Narrative Exam Narrative: Sitting in the bedside chair with feet elevated. No acute distress Const General: cooperative and comfortable Nutritional Appearance: obese Orientation: alert, awake and oriented x3 HENMT Head: normal to inspection, normocephalic and atraumatic Eyes General: appearance normal, both eyes and all related structures Pupils: PERRL Neck Neck: normal visual inspection and supple Other: No JVD or lymphadenopathy Chest Chest: normal inspection of the chest Resp Effort & Inspection: able to speak in complete sentences, audible wheezes and cough Auscultation: Less rhonchi today. Diffuse audible expiratory wheezes. Cardio Rate: regular rate Rhythm: regular rhythm Heart Sounds: S1 normal and S2 normal GI Inspection: distended Palpation: soft Auscultation: normal bowel sounds Other: Nontender to palpation Back/Spine/Pelvis Back: normal to inspection Skin General: dry skin and warm Lesions: lesion noted (Herpes simplex/shingles lesions over the left lower thorax healing well.) Rashes: rashes noted (Round, macular/patchy lesions noted on both lower extremities. Possible fungal in nature). New red macular/patchy rash noted on anterior upper right thorax. Neuro General: alert, awake and oriented x3 Cognition: normal cognition Speech: speech normal Extrem General: normal exam except as noted, no pedal edema and no calf tenderness Psych Appearance: grossly normal Mental Status: mental status grossly normal Speech and Movement: speech and movement normal Mood: congruent mood Affect: normal affect Attitude: cooperative Thought Process: normal Thought Content: normal Judgment: judgment good Objective Objective Labs Result Diagrams: 03/08/18 05:30 03/08/18 05:30 Labs: Laboratory Results - last 24 hr 03/08/18 03/08/18 05:30 05:30 WBC 3.7 L RBC 3.60 L Hgb 11.3 L Hct 33.7 L MCV 93.8 MCH 31.3 MCHC 33.4 RDW 17.5 H Plt Count 154 Neut % (Auto) Not Reportable Lymph % (Auto) Not Reportable [place] % (Auto) Not Reportable Eos % (Auto) Not Reportable Baso % (Auto) Not Reportable Seg Neutrophils % 56.0 Band Neutrophils % 6.0 Lymphocytes % (Manual) 28.0 Monocytes % (Manual) 7.0 Myelocytes % 3.0 H RBC Morphology Not Reportable Anisocytosis 2+ H Sodium 139 Potassium 4.0 Chloride 101 Carbon Dioxide 29 BUN 31 H Creatinine 1.20 Estimated GFR 58.9 L BUN/Creatinine Ratio 25.8 H Glucose 129 H Calcium 9.0 Magnesium 1.8 Assessment & Plan Plan: Assessment/Plan Narrative: 1. Possible bacterial pneumonia: He continues on day 4 of IV Levaquin. His expiratory wheezes have improved this morning after increasing his nebulizer treatments 2.5 mg albuterol q.4 hours as needed. He has refused steroid Solu-Medrol earlier in his admission. He is afraid of taking Solu-Medrol for some reason as he has been on chronic hydrocortisone. He has been taking the hydrocortisone IV and I think that it has been helpful. he is on 100 q.12. I will continue with that to help with the lungs as he is refusing the Solu-Medrol. 2. Acute hypoxic respiratory failure secondary to possible bacterial pneumonia: He is currently on room air with saturations running in the mid 90s. Respiratory rates in the teens to low 20s. He is on his home CPAP machine at night.. Blood cultures show no growth after 72 hr x2. 2. Fever: Possibly secondary to the bacterial pneumonia. Tests for influenza antigen was negative. His urinalysis was also negative for any signs of infection. 3. History of DVT: Continue Coumadin for anticoagulation. Will repeat INR in the morning. 4. Chronic congestive heart failure with preserved ejection fraction: He does not have clinical signs of acute exacerbation. Continue outpatient medication with furosemide and metoprolol. He appears to be net -2 L since admission. His daily weights are essentially unchanged. Monitor his daily weight, input and output. 5. Adrenal insufficiency: Continue with hydrocortisone but at stress doses and also to help with bronchospasms. 6. Disposition: He will benefit from at least another 24 hr stay in the hospital. PT and OT have been ordered to evaluate him for safety and stability. If he continues to improve clinically, he may be discharged tomorrow. Quality VTE Deep Vein Thrombosis/Pulmonary Embolism Present on Admission: No
--- NOTE | 2018-03-08 12:53 | PT.IIE ---
Current Diagnoses Unspecified bacterial pneumonia (03/04/18) Physical Therapy Inpatient Evaluation/Re-Eval M1 PT/OT-IP Prior Functional Status Start: 03/08/18 12:45 Freq: NEEDED Status: Active Protocol: Document 03/08/18 12:45 AB (Rec: 03/08/18 12:53 AB [id number]) Medical Review Prior Functional Status Medical History Reviewed Yes Mobility and Gait pt stated that he is indpendent with ambulation without AD but has used a 4WW for the last 2 weeks Social History Household Members spouse Living Arrangements House Number of Floors (Floors) Two Floors Number of Stairs To Enter/Railing? 2 steps without rails to enter 1 flight of stairs with R rail descending down to garage/ daylight basement/workshop Home Environment High Toilet Walk in Shower Home Equipment Shower Seat with Backrest Grab Bars In Shower Employment Status Retired M2 PT-IP Current Condition Start: 03/08/18 12:45 Freq: NEEDED Status: Active Protocol: Document 03/08/18 12:45 AB (Rec: 03/08/18 12:53 AB [id number]) Physical Therapy Current Condition Current Condition Evaluation Date 03/08/18 Treatment Diagnosis PNA; difficulty with ambulation Onset Date 03/04/18 M3 PT-IP Subjective Start: 03/08/18 12:45 Freq: NEEDED Status: Active Protocol: Document 03/08/18 12:45 AB (Rec: 03/08/18 12:53 AB [id number]) Subjective Physical Therapy Visit Type Type Initial Evaluation Visit Start Time 10:10 Visit Stop Time 10:25 Total Visit Minutes 15 Number of LEAD TRAINER Visits 0 Physical Therapy Visit Comments Patient Comments pt agreeable to do therapy Therapy Pain Assessment Pain Present Pain Present Denied Pain M4 PT-IP Mobility and Gait Start: 03/08/18 12:45 Freq: NEEDED Status: Active Protocol: Document 03/08/18 12:45 AB (Rec: 03/08/18 12:53 AB [id number]) PT-Bed Mobility Assessment Supine to Sit Supine to Sit Independent Sit to Supine Sit to Supine Independent PT-Transfer Assessment Sit to and From Stand Sit to and from Stand Standby Assistance Equipment Transfer Assistive Device Gait Belt Orthotic/Prosthetic Devices or Brace: No Gait Assessment Gait Gait Assistance Required: Standby Assistance Distance (Feet) (feet) 40 Able to Maintain Weight Bearing Status Yes During Gait Assistive Devices Assistive Device Gait Belt 4 Wheeled Walker Orthotic/Prosthetic Devices or Brace: No Factors Limiting Gait Function Factors Limiting Gait Function Decreased Activity Tolerance Decreased Strength Comments Gait Comments O2 sat maintained at 94% during ambulation PT-Balance Assessment Sitting Balance and Reactions Static Sitting Balance Ability Normal Dynamic Sitting Balance Ability Normal Standing Balance and Reactions Static Standing Balance Ability Fair Dynamic Standing Balance Ability Fair M5 PT-IP Objective Assessments Start: 03/08/18 12:45 Freq: NEEDED Status: Active Protocol: Document 03/08/18 12:45 AB (Rec: 03/08/18 12:53 AB [id number]) Orientation Orientation/Cognition Level of Alertness Alert Orientation Name Age Birthday Month Date Year Day of Week Place Situation Gross Range of Motion Lower Extremity ROM Assessment Within Functional Limits Strength Lower Extremity Strength Assessment Within Functional Limits M6 PT-IP Treatment Start: 03/08/18 12:45 Freq: NEEDED Status: Active Protocol: Document 03/08/18 12:45 AB (Rec: 03/08/18 12:53 AB [id number]) Physical Therapy Treatment Education Education Provided Safety Other Treatments Other Treatment Performed pt ambulated with FWW in room ~ 20 ft SBA. assessed ambulation using 4WW afterwards and was able to complete SBA ~ 40 ft. M7 PT-IP Assessment and Plan Start: 03/08/18 12:45 Freq: NEEDED Status: Active Protocol: Document 03/08/18 12:45 AB (Rec: 03/08/18 12:53 AB [id number]) PT Summary Assessment and Plan Potential Rehabilitation Potential Good Status of Condition at Evaluation Evolving Summary Impairments Strength Balance Bed Mobility Transfers Gait Activity Tolerance Assessment Summary pt able to ambulate SBA using 4WW but presents with decrease activity tolerance affecting mobility. pt will have spouse to assist him at home. stair climbing will be completed prior to d/c Goals Bed Mobility Goal Independent Transfer Goal Independent Gait Goal Independent Four Wheel Walker Gait Distance 150 Other Goals up/down 2 steps without rails up/down 1 flight of steps with L rail ascending Days to Meet Goals 3 Frequency of Treatment Frequency Of Treatment Once a Day Treatment Plan Physical Therapy Treatment Plan Bed Mobility Training Transfer Training Gait Training Therapeutic Exercise Balance Retraining Post Op Education Discharge Planning Hot or Cold Pack Neuromuscular Re-ed Coordination Retraining Manual Therapy Recommendations To Nursing Amount of Assist Needed Standby Assistance Discharge Recommendations PT Discharge Recommendations Home with Assistance
[2018-03-08] MEDS: levoFLOXacin 500 MG/100 ML PIGGYBACK 100 MG IV (16:24)
[2018-03-08] MEDS: SODIUM CHLORIDE 0.9% 250 ML 21 ML IV (16:25)
[2018-03-08] MEDS: WARFARIN 3 MG TABLET PO (17:07)
[2018-03-08] MEDS: PANTOPRAZOLE 20 MG TABLET PO (20:39)
[2018-03-09 03:06] VITALS: BP 143/88; PULSE 81; RESP 20; TEMP 36.5; O2SAT 99
[2018-03-09 06:20] LABS: INR 3.7 (0.9-1.3); Prothrombin Time 40.2 SECONDS (10.1-12.7)
[2018-03-09 07:00] VITALS: BP 143/86; PULSE 76; RESP 16; TEMP 36.6; O2SAT 99
[2018-03-09] MEDS: ALBUTEROL 2.5 MG/3 ML NEB (ADULT) INH (08:44)
[2018-03-09 08:50] VITALS: O2SAT 96
[2018-03-09] MEDS: FUROSEMIDE 40 MG TABLET PO (08:51)
[2018-03-09] MEDS: METOPROLOL 25 MG TABLET PO (08:51)
[2018-03-09] MEDS: METFORMIN HCL 500 MG TABLET PO (08:51)
[2018-03-09] MEDS: CLOTRIMAZOLE 1% CRM 30 GM 1 APPLIC TOP (08:51)
[2018-03-09] MEDS: POTASSIUM CHLORIDE 20 MEQ TAB PO ×2 (08:51→12:20)
[2018-03-09] MEDS: HYDROCORTISONE 100 MG/2 ML VIAL IV (08:52)
[2018-03-09] MEDS: CALCITONIN,SALMON, NASAL SPRAY 1 SPRAYS NASAL (08:52)
[2018-03-09] MEDS: FAMCICLOVIR 250 MG 250 EACH PO (08:52)
--- NOTE | 2018-03-09 10:00 | PM.DS.1 ---
History of Present Illness Date Patient Seen: 03/09/18 Time Patient Seen: 10:00 Chief complaint: COUGH,FEVER Narrative: 77-year-old man, patient of Dr. Harden, with history of myelodysplastic syndrome who presented to the [facility] Emergency Room for dry cough and sore throat for 3-4 days fever and shortness of breath for 1 day. He was noted to have room air oxygen saturation of 88% at the ER. He was also having significant shortness of breath. Chest x-ray revealed prominent interstitial markings. He was diagnosed with possible bacterial pneumonia. He received IV Levaquin and nebulizer treatment. He was admitted to the medicine floor. Discharge Providers Date of admission: 03/04/18 17:17 Primary care physician: Rob White MD Consults: 03/07/18 13:55 Consult to Physical Therapy Evaluate & Treat Comment: mobility Physician Instructions: Evaluate and Treat Discharge provider: MORIS Vidales Summary Discharge Diagnosis: 1. Probable bacterial pneumonia 2. Acute hypoxic respiratory failure secondary to 1. 3. Congestive heart failure (Chronic) 4. Adrenal insufficiency (Chronic) 5. Type 2 diabetes (Chronic) 6. Myelodysplastic syndrome (Chronic) 7. History of DVT Hospital Course: This is a summary of a 5 day hospitalization for this 77-year-old pleasant male patient who came in originally with cough and fever. He presented to the emergency room with oxygen saturations of 88 on room air, had significant shortness of breath, and a chest x-ray revealing prominent interstitial markings. He required some oxygen supplementation with 2 L nasal cannula for several days to keep saturations greater than 90. He was also started on IV Levaquin 500 mg IV Q 24 hr. and hydrocortisone 100 mg IV twice a day in addition to receiving albuterol treatments as needed. Mr. Puma marie essentially remained afebrile after addition of the antibiotics. He was also slightly tachypneic in the high 20s to low 30s on admission and is presently in the mid mid teens to low 20s. He also presented with marked pulmonary bronchospasms and rhonchi. His clinical condition gradually improved over the course of 5 days. He has not required oxygen supplementation for 2 days, has been ambulating short distances without marked shortness of breath, and feels like he is safe and ready for discharge. He will be discharged on his usual routine home medications with the addition of levofloxacin for an additional 5 days. His history of chronic congestive heart failure, adrenal insufficiency, type 2 diabetes, mild dysplastic syndrome appear to have been stable during this hospitalization. His daily dose of warfarin 3 mg was also decreased to 2.5 mg as his recent INR was 3.7. This may be effect of the Levaquin and may need to be monitored and re-evaluated by his primary care provider. Status at Discharge Functional status at discharge: uses cane/walker Overall status at discharge: patient is progressing back to baseline Time Spent with Patient Greater than 30 minutes Exam Vital Signs (past 8 hours): - 03/09/18 03:06 03/09/18 07:00 03/09/18 08:50 Temperature 97.7 F 97.8 F Pulse Rate 81 76 Respiratory Rate 20 16 Blood Pressure 143/88 H 143/86 H Pulse Oximetry 99 99 96 Oxygen Delivery Method Room Air Oxygen Flow Rate 0 Narrative Exam Narrative: Sitting in the bedside chair with feet elevated. No acute distress Const General: cooperative and comfortable Nutritional Appearance: obese Orientation: alert, awake and oriented x3 HENMT Head: normal to inspection, normocephalic and atraumatic Eyes General: appearance normal, both eyes and all related structures Pupils: PERRL Neck Neck: normal visual inspection and supple Other: No JVD or lymphadenopathy Chest Chest: normal inspection of the chest Resp Effort & Inspection: able to speak in complete sentences, minimal expiratory wheezes and non productive cough Auscultation: No rhonchi today. Rales in bilateral bases. Cardio Rate: regular rate Rhythm: regular rhythm Heart Sounds: S1 normal and S2 normal GI Inspection: distended Palpation: soft Auscultation: normal bowel sounds Other: Nontender to palpation Back/Spine/Pelvis Back: normal to inspection Skin General: dry skin and warm Lesions: lesion noted (Herpes simplex/shingles lesions over the left lower thorax healing well.) Rashes: rashes noted (Round, macular/patchy lesions noted on both lower extremities. Possible fungal in nature). New red macular/patchy rash noted on anterior upper right thorax. Neuro General: alert, awake and oriented x3 Cognition: normal cognition Speech: speech normal Extrem General: normal exam except as noted, no pedal edema and no calf tenderness Psych Appearance: grossly normal Mental Status: mental status grossly normal Speech and Movement: speech and movement normal Mood: congruent mood Affect: normal affect Attitude: cooperative Thought Process: normal Thought Content: normal Judgment: judgment good Objective Labs Result Diagrams: 03/08/18 05:30 03/08/18 05:30 Labs: Laboratory Results - last 24 hr 03/09/18 05:16 PT 40.2 H D INR 3.7 H Discharge Plan Discharge Plan Patient Disposition: Home, Self-Care Provider Discharge Instructions Diet comment: Heart healthy/cardiac diet Activity: As tolerated Oxygen: Room air, uses CPAP at night. Discharge Data Primary Care Provider: Rob White Attending Provider: Mary Higginbotham Admit Date/Time: 03/04/18 17:17 Quality VTE Deep Vein Thrombosis/Pulmonary Embolism Present on Admission: No
--- NOTE | 2018-03-09 12:50 | PC.NURSE ---
Pt discharged to home. Taken down to Oncology Appt. REQUESTED not to have his l.chest portacath deaccessed as he states that they will draw blood down in oncology. Down to appt with PCU RN.
== END 2018-03-09 12:25 | disposition home or self-care (01) | DRG 193 ==
LOC: ED 16:37 → AC 17:18
PROVIDERS: Nurse Practitioner Acute Care; Admitting Provider Internal Medicine; Emergency Provider Emergency Medicine; Family Provider Family Medicine; PCP Family Medicine; Visit Provider Internal Medicine
DX: J15.9 Unspecified bacterial pneumonia (principal); J96.01 Acute respiratory failure with hypoxia; I50.32 Chronic diastolic (congestive) heart failure; E27.40 Unspecified adrenocortical insufficiency; D68.52 Prothrombin gene mutation; D46.9 Myelodysplastic syndrome, unspecified; E11.9 Type 2 diabetes mellitus without complications; Z79.84 Long term (current) use of oral hypoglycemic drugs; Z87.891 Personal history of nicotine dependence; Z86.718 Personal history of other venous thrombosis and embolism; Z79.01 Long term (current) use of anticoagulants
CPT/HCPCS: 36415; 36591; 71045; 80048; 80053; 81003; 82962; 83605; 83690; 83735; 84145; 85025; 85610; 85730; 87040; 87400; 93005; 93010; 94640; 94668; 94760; 94762; 96365; 97162; 99284; 99285; J1642; J1720; J1956; J7613

== ENCOUNTER 2018-04-20 15:17 | Emergency (ER) | payer MEDICARE, OTHER, SELFPAY ==
[2018-04-20 15:18] VITALS: BP 118/69; PULSE 79; RESP 18; TEMP 36.8; O2SAT 97; BMI 30.4
--- NOTE | 2018-04-20 16:17 | DI.RAD.S_ITS ---
PROCEDURE: XR CHEST 1V INDICATIONS: fever TECHNIQUE: One view of the chest was acquired. COMPARISON: [facility], CR, XR CHEST 1V, 03/04/2018, 15:44. FINDINGS: Surgical changes and devices: None. Lungs and pleura: No pleural effusions or pneumothorax. Lungs are clear. Mediastinum: Mediastinal contours appear normal. Heart size is enlarged. Bones and chest wall: No suspicious bony lesions. Overlying soft tissues appear unremarkable. IMPRESSION: No acute cardiopulmonary pathology. Dictated by: Jose Ellison M.D. on 04/20/2018 at 16:31 Approved by: Jose Ellison M.D. on 04/20/2018 at 16:32
[2018-04-20 16:40] LABS: Lactate (Lactic Acid) 0.9 mmol/L (0.7-2.1)
[2018-04-20 16:41] LABS: BUN Creatinine Ratio 21.8 (6-22); Bilirubin Total 0.6 mg/dL (0.2-1.3); Blood Urea Nitrogen 24 mg/dL (9-20); Calcium 9.1 mg/dL (8.4-10.2); Carbon Dioxide 29 mmol/L (22-32); Chloride 97 mmol/L (98-107); Estimated Glomerular Filt Rate > 60.0 mL/min (>60); Glucose 130 mg/dL (80-110); HEMOLYSIS 25 (0-50); Sodium 134 mmol/L (137-145)
[2018-04-20 16:43] LABS: Add Manual Diff / Slide Review NO; Basophils Percent Auto 4.4 % (0-2); Eosinophils Percent Auto 0.7 % (2-4); Hematocrit 34.4 % (41-53); Hemoglobin 11.6 g/dL (13.5-17.5); Lymphocytes Percent Auto 15.9 % (25-40); Mean Corpuscular HGB Conc 33.6 % (30-36); Mean Corpuscular Hemoglobin 32.9 PG (26-34); Mean Corpuscular Volume 97.7 fL (80-100); Monocytes Percent Auto 17.5 % (3-14); Neutrophils Absolute Auto 3000 /uL (3000-5900); Neutrophils Percent Auto 61.5 % (50-75); Platelet Count 266 X10^3/uL (150-400); Red Blood Cell Count 3.52 X10^6/uL (4.5-5.9); Red Cell Distribution Width 18.3 % (11.6-14.8); White Blood Cell Count 4.9 X10^3/uL (4.5-11.0)
[2018-04-20 16:57] LABS: Procalcitonin 0.31 ng/mL (<0.5)
[2018-04-20 17:00] VITALS: BP 123/65; PULSE 82; RESP 26; O2SAT 94
[2018-04-20 17:52] LABS: Bacteria Urine None Seen
[2018-04-20 18:02] LABS: RBC Urine 0-1/HPF (0-5/HPF)
[2018-04-20 18:03] LABS: Culture Indicated Urine Cult Not Indicated; Squamous Epithelial Cell Urine 0-1 /HPF; WBC Urine 0-1/HPF (0-5/HPF)
[2018-04-20 19:15] VITALS: BP 136/70; PULSE 77; RESP 20; O2SAT 95
--- NOTE | 2018-05-24 10:52 | ED_ITS ---
HPI - Fever General Chief Complaint: Fever Stated Complaint: FEVER Time Seen by Provider: 04/20/18 15:28 Source: patient and family Mode of arrival: ambulatory Limitations: no limitations History of Present Illness HPI Narrative: Patient comes complaining of an episode of fever up to 101. Patient has a history of cancer and Sweet syndrome. He has a history of intermittent fevers related to this. However, patient recently restarted chemotherapy, and is concerned I about the fever and wants to get it checked out. He denies any other specific symptoms other than the fever itself. complaint: fever Onset (ago): day(s) Maximum Temperature: 101 F Temperature Source: oral Context: on chemotherapy Associated symptoms: denies other symptoms Relieving factors: nothing Exacerbating factors: nothing Treatments prior to arrival fever: none Related Data Home Medications Medication Instructions Recorded Confirmed furosemide 40 mg PO QDAY 01/24/18 04/26/18 Glucose: Test Strips 1 str MISCELLANEOUS DIRECTED 03/04/18 04/19/18 hydrocortisone 10 mg PO BEDTIME 03/04/18 04/26/18 hydrocortisone 30 mg PO TID 03/04/18 04/26/18 metoprolol tartrate 25 mg PO BID 03/04/18 04/26/18 warfarin [Coumadin] 1 mg PO MOWEFR 03/04/18 04/26/18 metformin [Glucophage] 500 mg PO BID 04/26/18 04/26/18 terbinafine 1 applic TOPICAL DAILY 04/26/18 04/26/18 Previous Rx's Medication Instructions Recorded potassium chloride [Klor-Con M20] 20 meq PO TIDCC #90 tab 11/30/17 famciclovir 250 mg PO Q12H #120 tab 01/24/18 warfarin 2.5 mg tablet 2.5 mg PO DAILY #30 tab 04/12/18 omeprazole 20 mg capsule,delayed 20 mg PO BEDTIME #30 cap 04/18/18 release Allergies Allergy/AdvReac Type Severity Reaction Status Date / Time promethazine [PROMETHAZINE] AdvReac Unknown restlessnes Verified 04/20/18 15:18 s Review of Systems Review of Systems All systems reviewed & are unremarkable except as noted in HPI and below Constitutional Denies chills, Denies fever(s), Denies lethargy and Denies weakness Eyes Denies change in vision, Denies eye discharge, Denies irritation and Denies loss of vision ENT Ears, Nose, Mouth, and Throat: Denies change in voice, Denies neck pain and Denies sore throat Cardiovascular Denies chest pain, Denies irregular heart rhythm, Denies lightheadedness, Denies palpitations, Denies dyspnea, Denies dyspnea on exertion and Denies orthopnea Respiratory Denies cough, Denies dyspnea, Denies dyspnea on exertion and Denies wheezing Gastrointestinal Gastrointestinal: Denies abdominal pain, Denies change in bowel habits, Denies diarrhea, Denies nausea and Denies vomiting Genitourinary Denies hematuria, Denies flank pain, Denies urinary incontinence and Denies urinary urgency Musculoskeletal Denies neck pain Integumentary/Breasts Denies pruritus, Denies erythema, Denies rash and Denies wounds Neurologic Denies confusion, Denies loss of vision and Denies weakness Psychiatric Denies anxiety, Denies confusion, Denies depression, Denies homicidal ideation and Denies suicidal ideation Endocrine Denies palpitations Hematologic/Lymphatic Denies easy bruising Allergic/Immunologic Denies wheezing Exam Initial Vital Signs Initial Vital Signs: Vital Signs Temperature 98.3 F 04/20/18 15:18 Pulse Rate 79 04/20/18 15:18 Respiratory Rate 18 04/20/18 15:18 Blood Pressure 118/69 04/20/18 15:18 Pulse Oximetry 97 04/20/18 15:18 Const General: cooperative and well developed Nutritional Appearance: well nourished Orientation: alert, awake, oriented x3 and not confused [facility] Head: normocephalic and atraumatic Ears: external ears normal and TM's normal bilaterally Nose: external nose normal and No nasal discharge Face and sinus: sinuses nontender, face symmetric, no sinus tenderness and No dry mucous membranes Mouth: oral mucosae normal and moist mucous membranes Teeth and gingiva: dentition normal Throat: tonsils normal and uvula midline Eyes General: appearance normal, both eyes and all related structures Eyelids: eyelids normal Conjunctivae: conjunctivae normal Sclera: sclerae normal Pupils: PERRL EOM: EOM intact bilaterally Neck Neck: normal visual inspection, trachea midline, No lymphadenopathy, No midline deformity and No JVD Lymphatic: No lymphedema Chest Chest: normal inspection of the chest Resp Effort & Inspection: normal respiratory effort, able to speak in complete sentences, no respiratory distress and no use of accessory muscles Auscultation: clear to auscultation bilaterally, no rales, no rhonchi and no wheezes Cardio Rate: regular rate Rhythm: regular rhythm Heart Sounds: no click, no gallops, no murmurs and no rubs Pulses: normal peripheral pulses GI Inspection: non-distended Palpation: soft, no hepatosplenomegaly, No guarding, No pulsatile mass and No tender Auscultation: normal bowel sounds Back/Spine/Pelvis Back: No CVA tenderness Cervical Spine: cervical ROM normal and No pain with cervical ROM Thoracic/Lumbar Spine: thoracic and lumbar spine normal to inspection Skin General: no rashes or lesions noted, No jaundice and No petechiae Neuro General: alert, oriented x3, gait normal and no focal motor deficits Speech: speech normal Extrem General: full ROM, no clubbing, cyanosis or edema, no pedal edema and no calf tenderness Psych Appearance: well kempt Mental Status: mental status grossly normal Attitude: cooperative Thought Content: normal and suicidality Judgment: judgment good Course Hospital Course: Patient was evaluated by myself in the presence of his . The patient was actually fairly well-appearing, but the fact that he had cancer was on chemotherapy was concerning to me. The patient was worked up with laboratory studies and I spoke with Dr. Hays, who is on-call for the patient's oncologist. Dr. Verduzco stated that the patient should follow up with his oncologist, as planned. If fevers go higher, or if he develops more specific symptoms, he should return to the hospital immediately. Orders Ordered: ED Orders 04/20/18 15:45 Basic Metabolic Panel Stat Bilirubin Total Stat Blood Culture Stat Complete Blood Count AUTO DIFF Stat Lactate (Lactic Acid) Stat Procalcitonin Stat 04/20/18 16:17 XR chest 1V Stat Vital Signs - 8 hr 04/20/18 15:18 Temperature 98.3 F Pulse Rate 79 Respiratory Rate 18 Blood Pressure 118/69 Pulse Oximetry 97 MDM - Fever Differential Diagnosis Likely fever of unknown origin Medical Records Attestation: I reviewed the patient's medical records. Lab Data Attestation: I reviewed the patient's lab results. Result diagrams: 04/20/18 15:45 04/20/18 15:45 Lab Results 04/20/18 04/20/18 04/20/18 Range/Units 15:45 15:45 15:45 WBC 4.9 (4.5-11.0) X10^3/uL RBC 3.52 L (4.5-5.9) X10^6/uL Hgb 11.6 L (13.5-17.5) g/dL Hct 34.4 L (41-53) % MCV 97.7 (80-100) fL MCH 32.9 (26-34) PG MCHC 33.6 (30-36) % RDW 18.3 H (11.6-14.8) % Plt Count 266 (150-400) X10^3/uL Neut % (Auto) 61.5 (50-75) % Lymph % (Auto) 15.9 L (25-40) % [place] % (Auto) 17.5 H (3-14) % Eos % (Auto) 0.7 L (2-4) % Baso % (Auto) 4.4 H (0-2) % Neut # (Auto) 3000 (6170-1476) /uL Sodium 134 L (137-145) mmol/L Potassium 4.0 (3.4-5.1) mmol/L Chloride 97 L (98-107) mmol/L Carbon Dioxide 29 (22-32) mmol/L BUN 24 H (9-20) mg/dL Creatinine 1.10 (0.66-1.25) mg/dL Estimated GFR > 60.0 (>60) mL/min BUN/Creatinine Ratio 21.8 (6-22) Glucose 130 H (80-110) mg/dL Lactate (0.7-2.1) mmol/L Calcium 9.1 (8.4-10.2) mg/dL Total Bilirubin 0.6 (0.2-1.3) mg/dL Procalcitonin 0.31 (<0.5) ng/mL Urine RBC (0-5/HPF) Urine WBC (0-5/HPF) Ur Squamous Epith Cells Urine Bacteria (None) Ur Culture Indicated? Micro UA Comment 04/20/18 04/20/18 Range/Units 15:45 17:47 WBC (4.5-11.0) X10^3/uL RBC (4.5-5.9) X10^6/uL Hgb (13.5-17.5) g/dL Hct (41-53) % MCV (80-100) fL MCH (26-34) PG MCHC (30-36) % RDW (11.6-14.8) % Plt Count (150-400) X10^3/uL Neut % (Auto) (50-75) % Lymph % (Auto) (25-40) % [place] % (Auto) (3-14) % Eos % (Auto) (2-4) % Baso % (Auto) (0-2) % Neut # (Auto) (3939-5164) /uL Sodium (137-145) mmol/L Potassium (3.4-5.1) mmol/L Chloride (98-107) mmol/L Carbon Dioxide (22-32) mmol/L BUN (9-20) mg/dL Creatinine (0.66-1.25) mg/dL Estimated GFR (>60) mL/min BUN/Creatinine Ratio (6-22) Glucose (80-110) mg/dL Lactate 0.9 (0.7-2.1) mmol/L Calcium (8.4-10.2) mg/dL Total Bilirubin (0.2-1.3) mg/dL Procalcitonin (<0.5) ng/mL Urine RBC 0-1/hpf (0-5/HPF) Urine WBC 0-1/hpf (0-5/HPF) Ur Squamous Epith Cells 0-1 /hpf Urine Bacteria None seen (None) Ur Culture Indicated? Cult not indicated Micro UA Comment Not Reportable Discharge Plan Departure Patient Disposition: Home Clinical Impression: Fever Discharge Date/Time: 04/20/18 19:16 Interventions: ED Discharge Assessment Last Done: 04/20/18 19:15 Instructions: DI for Fever (Symptom) -- Adult Activity Restrictions/Additional Instructions: Your labs, urinalysis, and chest x-ray all looked good. Blood cultures are pending. Your case has been discussed with Dr. Hays, who is covering for Dr. Del Rosario. He has recommended that since everything looks negative here, and that you should follow-up with your primary doctor in the next 2-5 days to follow up on your blood culture results. You will also be notified by the hospital if your blood culture results come back positive. If you develop shortness of breath, chest pain, severe abdominal pain, severe neck pain, or any other concerning symptoms, please return to the emergency department. You may use Tylenol and/or ibuprofen for any further fevers. Prescriptions: No Action potassium chloride [Klor-Con M20] 20 MEQ tablet,ER particles/crystals 20 meq PO TIDCC Qty: 90 RF: 5 warfarin 2.5 mg tablet 2.5 mg PO DAILY Qty: 30 RF: 0 omeprazole 20 mg capsule,delayed release(DR/EC) 20 mg PO BEDTIME Qty: 30 RF: 0 furosemide 40 MG tablet 40 mg PO QDAY RF: 0 famciclovir 250 mg Tablet 250 mg PO Q12H Qty: 120 RF: 2 metformin [Glucophage] 500 MG tablet 500 mg PO BID RF: 0 terbinafine 1 % Gel 1 applic TOPICAL DAILY RF: 0 hydrocortisone 10 mg Tablet 30 mg PO TID RF: 0 hydrocortisone 10 mg tablet 10 mg PO BEDTIME RF: 0 warfarin [Coumadin] 1 mg tablet 1 mg PO MOWEFR RF: 0 metoprolol tartrate 25 mg Tablet 25 mg PO BID RF: 0 Glucose: Test Strips 1 str miscellaneous DIRECTED RF: 0 Referrals: Rob White MD [Primary Care Provider] -
== END 2018-04-20 19:16 | disposition home or self-care (01) ==
PROVIDERS: Emergency Provider Emergency Medicine; Family Provider Family Medicine; PCP Family Medicine
DX: R50.9 Fever, unspecified (principal)
CPT/HCPCS: 36415; 36591; 71045; 80048; 81003; 81015; 82247; 83605; 84145; 85025; 87040; 99215; 99283; 99284

== ENCOUNTER → 2018-05-13 10:43 | Outpatient (CLI) | payer MEDICARE, OTHER, SELFPAY ==
[2018-05-13 12:45] LABS: Alanine Aminotransferase 23 IU/L (21-72); Albumin 3.7 g/dL (3.5-5.0); Albumin Globulin Ratio 1.2 (1.0-2.8); Alkaline Phosphatase 64 U/L (38-126); Aspartate Aminotransferase 17 IU/L (17-59); Bilirubin Total 0.3 mg/dL (0.2-1.3); Bilirubin Unconjugated 0.1 mg/dL (0.0-1.1); Globulin 3.1 g/dL (1.7-4.1); HEMOLYSIS < 15 (0-50); Total Protein 6.8 g/dL (6.3-8.2)
== END ==
PROVIDERS: PCP Family Medicine; Visit Provider Dermatology
DX: B35.4 Tinea corporis (principal)
CPT/HCPCS: 36415; 80076

== ENCOUNTER → 2018-06-10 08:17 | Outpatient (CLI) | payer MEDICARE, OTHER, SELFPAY ==
--- NOTE | 2018-06-10 08:20 | DI.ECHO.S_ITS ---
[facility] +---------+ : : [address] [place] : : : : [id number] : : : : Phone: [phone]---------+ Echocardiogram Report + + :Name: JOSE JUSTICE Study Date: 06/10/2018 Height: 68 in : :[facility] Exam Location: [place] Weight: 200 lb : : Gender: Male BSA: 2.0 m2 : :: 1940 Age: 77 yrs BP: 125/80 mmHg: :Reason For Study: Congestive Heart Failure : : Performed By: Apple Page : :Referring: ADAM REBOLLEDO : + + Interpretation Summary The left ventricle is normal in size, wall thickness, and systolic function without any focal wall motion abnormalities. The ejection fraction is estimated to be 60-65%. Assessment of diastolic parameters indicates a relaxation abnormality of the left ventricle, consistent with normal filling pressures. The right ventricle is normal in size and function. Pulmonary artery pressures cannot be estimated because of the lack of a measurable TR jet velocity. Both atria are normal in size. There is mild aortic stenosis. The calculated aortic valve area is 1.6 cm2. The peak aortic velocity on the previous exam was 2.7 m/sec. The peak aortic velocity is 2.3 m/sec. There is mild aortic regurgitation. This is unchanged compared to the previous study. There is no other significant valvular heart disease. The aortic root is mildly dilated. This is unchanged compared to the previous study. Procedure: A two-dimensional transthoracic echocardiogram with color flow and Doppler was performed. The study quality was technically adequate. Comparison is made with the echocardiogram of 06/21/2017. The patient was in normal sinus rhythm during the exam. Left Ventricle: The left ventricle is normal in size, wall thickness, and systolic function without any focal wall motion abnormalities. The ejection fraction is estimated to be 60-65%. Assessment of diastolic parameters indicates a relaxation abnormality of the left ventricle, consistent with normal filling pressures. Right Ventricle: The right ventricle is normal in size and function. Atria: Both atria are normal in size. There is no Doppler evidence for an interatrial shunt. Mitral Valve: The mitral valve leaflets appear thickened, but open well. There is trace mitral regurgitation. Aortic Valve: The aortic valve is mildly calcified. There is mild aortic stenosis. The peak aortic velocity is 2.3 m/sec. The peak aortic velocity on the previous exam was 2.7 m/sec. The calculated aortic valve area is 1.6 cm2. The aortic valve mean gradient is 12.5 mmHg. There is mild aortic regurgitation. This is unchanged compared to the previous study. Tricuspid Valve: The tricuspid valve is normal in structure and function. There is a trace or physiologic amount of tricuspid regurgitation. Pulmonary artery pressures cannot be estimated because of the lack of a measurable TR jet velocity. Pulmonic Valve: The pulmonic valve is not well visualized. There is mild pulmonic regurgitation. There is no other significant valvular heart disease. Great Vessels: The aortic root is mildly dilated. This is unchanged compared to the previous study. The ascending aorta is at the upper limits of normal in size. The pulmonary artery is not well visualized, but is probably normal size. The IVC is of normal diameter and collapses greater than 50% with a sniff. This suggests a low right atrial pressure of 3 mm Hg. Pericardium/ Pleura There is no pericardial effusion. There is no pleural effusion. MMode/2D Measurements & Calculations LVIDd: 4.4 cm LVOT diam: 2.3 cm LVIDs: 3.0 cm Ao root diam: 4.0 cm FS: 30.2 % asc Aorta Diam: 3.4 cm EPSS: 0.24 cm IVSd: 1.1 cm LVPWd: 0.75 cm LV grier. diameter/BSA (cm/m^2): 2.1 LV sys. diameter/BSA (cm/m^2): 1.5 LA A2 area: 18.2 cm2 RA long axis: 4.7 cm LA A4 area: 20.8 cm2 RA area: 13.6 cm2 LA length (vol): 6.9 cm RA vol: 33.6 ml LA vol: 46.6 ml RA : 16.4 ml/m2 LA vol index: 22.8 ml/m2 RVD1 (basal): 4.2 cm Doppler Measurements & Calculations Ao V2 max: 228.7 cm/sec LVOT Max Irvin: 93.4 cm/sec Ao V2 mean: 169.4 cm/sec LV V1 max P.5 mmHg Ao max P.9 mmHg LV V1 VTI: 18.9 cm Ao mean P.5 mmHg FAZAL(I,D): 1.6 cm2 Ao V2 VTI: 47.9 cm FAZAL(V,D): 1.7 cm2 sev ratio: 0.39 FAZAL indexed to BSA (cm^2/m^2): 0.79 AI P1/2t: 649.6 msec AI dec slope: 197.0 cm/sec2 MV E max irvin: 49.8 cm/sec TR max irvin: 221.6 cm/sec MV A max irvin: 67.4 cm/sec TR max P.6 mmHg MV E/A: 0.74 PA V2 max: 61.0 cm/sec Med Peak E' Irvin: 3.6 cm/sec PA V2 mean: 38.6 cm/sec E/E' med: 13.7 PA mean P.68 mmHg Lat Peak E' Irvin: 4.7 cm/sec PA Accel Time: 0.08 sec E/E' lat: 10.5 E/e' average: 12.1 MV dec time: 0.19 sec Reading Physician:ISABEL
== END ==
PROVIDERS: Family Provider Internal Medicine Cardiovascular Disease; PCP Family Medicine
DX: I35.2 Nonrheumatic aortic (valve) stenosis with insufficiency (principal); I50.9 Heart failure, unspecified
CPT/HCPCS: 93306

== ENCOUNTER → 2018-08-24 16:16 | Outpatient (CLI) | payer MEDICARE, OTHER, SELFPAY ==
--- NOTE | 2018-08-24 16:22 | DI.RAD.S_ITS ---
PROCEDURE: XR CHEST 2V INDICATIONS: infection TECHNIQUE: 2 views of the chest were acquired. COMPARISON: [facility], CR, XR CHEST 1V, 04/20/2018, 16:24. FINDINGS: Surgical changes and devices: Left chest wall Port-A-Cath tip is in SVC. Lungs and pleura: No pleural effusions or pneumothorax. Lungs are clear. Mediastinum: Cardiac silhouette is enlarged. Tortuous thoracic aorta is seen. Bones and chest wall: No suspicious bony abnormalities. Soft tissues appear unremarkable. IMPRESSION: No acute cardiopulmonary pathology. Dictated by: Jose Ellison M.D. on 08/24/2018 at 16:55 Approved by: Jose Ellison M.D. on 08/24/2018 at 16:56
== END ==
PROVIDERS: Family Provider Family Medicine; PCP Student in an Organized Health Care Education/Training Program
DX: L98.2 Febrile neutrophilic dermatosis [Sweet] (principal); B99.9 Unspecified infectious disease
CPT/HCPCS: 71046

== ENCOUNTER 2018-08-25 08:12 | Inpatient (IN) | payer MEDICARE, OTHER, SELFPAY ==
[2018-08-25] VITALS (11 sets, daily range): BP systolic 96–138; BP diastolic 39–73; PULSE 69–120; RESP 18–38; TEMP 36.3–39.1; O2SAT 88–100; BMI 32.3
--- NOTE | 2018-08-25 | DI.US.S_ITS ---
PROCEDURE: US PERIPH VENOUS LOW EXTREM BI INDICATIONS: bilat swelling TECHNIQUE: Real-time imaging, as well as color and pulse Doppler interrogation, were performed of the deep veins of both legs from the inguinal ligament to the popliteal fossa. COMPARISON: None. FINDINGS: The deep veins are normally compressible, and free of intraluminal thrombus. Color and pulse Doppler demonstrate normal phasic intravascular flow. There is normal augmentation response to distal compression maneuver. IMPRESSION: No deep venous thrombosis identified within either the left or right lower extremities. Dictated by: Silvano Bone [facility] Interpreted: Thiago Naranjo MD on 08/25/2018 at 16:56 Approved by: Thiago Naranjo M.D. on 08/26/2018 at 9:09
--- NOTE | 2018-08-25 08:29 | DI.RAD.S_ITS ---
PROCEDURE: XR CHEST 1V INDICATIONS: dyspnea TECHNIQUE: One view of the chest was acquired. COMPARISON: [facility], CR, XR CHEST 2V, 08/24/2018, 16:44. [facility], CT, PE STUDY (CTA CHEST), 04/03/2017, 10:45. [facility], CR, XR CHEST 1V, 04/20/2018, 16:24. FINDINGS: Surgical changes and devices: A left chest Port-A-Cath is stable.. Lungs and pleura: No pleural effusions or pneumothorax. Streaky opacities noted in the lung bases bilaterally. Mediastinum: Mediastinal contours appear normal. Descending aorta is tortuous. Heart size is normal. Bones and chest wall: No suspicious bony lesions. Overlying soft tissues appear unremarkable. IMPRESSION: Bibasilar atelectasis versus pneumonia. Dictated by: Cece Yeung MD, PhD on 08/25/2018 at 8:49 Approved by: Cece Yeung MD, PhD on 08/25/2018 at 8:51
[2018-08-25] MEDS: ONDANSETRON 4 MG/2 ML INJ IV (08:30)
--- NOTE | 2018-08-25 08:33 | ED.FEVER ---
HPI - Fever General Chief Complaint: Fever Stated Complaint: Fever Time Seen by Provider: 08/25/18 08:17 Source: patient and EMS Mode of arrival: EMS Limitations: physical limitation (Patient is dyspneic and cannot converse much.) History of Present Illness HPI Narrative: Patient states that symptoms began 5-6 days ago, when he developed a mild cough and increased dyspnea. Patient states that he has been dyspneic at baseline since he was diagnosed with myelodysplastic syndrome, but that this is much worse. He was seen yesterday and a chest x-ray was done which demonstrated pneumonia. Patient was started on Augmentin for this but symptoms worsened overnight. Patient had a few episodes of vomiting, he states he feels more short of breath now than he did before. Patient does have a history of CHF, but no COPD. He is a former smoker. Patient denies chest pain. He has had a low-grade fever, which has gotten as high as 100.8. Patient denies other complaints at this time. Related Data Home Medications Medication Instructions Recorded Confirmed Glucose: Test Strips 1 str MISCELLANEOUS DIRECTED 03/04/18 08/25/18 metoprolol tartrate 25 mg PO BID 03/04/18 08/25/18 potassium chloride [Klor-Con M20] 20 meq PO TID 06/21/18 08/25/18 acetaminophen 650 mg PO PRN PRN 08/24/18 08/25/18 griseofulvin microsize 500 mg PO BID 08/24/18 08/25/18 furosemide 40 mg PO DAILY 08/25/18 08/25/18 hydrocortisone 40 mg PO BID 08/25/18 08/25/18 warfarin 2.5 mg PO QPM 08/25/18 08/25/18 warfarin [Coumadin] 1 mg PO MOWEFR 08/25/18 08/25/18 hydrocortisone 10 mg PO BEDTIME 08/31/18 08/31/18 prednisone 60 mg PO DAILY 08/31/18 08/31/18 Previous Rx's Medication Instructions Recorded famciclovir 250 mg PO Q12H #120 tab 01/24/18 omeprazole 20 mg capsule,delayed 20 mg PO BEDTIME #30 cap 05/27/18 release albuterol sulfate 2.5 mg/3 mL 2.5 mg INHALATION Q4H PRN #90 ml 06/10/18 (0.083 %) solution for nebulization cefdinir 300 mg PO Q12H 10 Days #20 cap 08/28/18 doxycycline hyclate 100 mg PO BID 10 Days #20 tab 08/28/18 sucralfate 1 gm PO ACHS 30 Days tab 08/28/18 metformin 500 mg tablet 500 mg PO BID #60 tab 09/01/18 Allergies Allergy/AdvReac Type Severity Reaction Status Date / Time promethazine [PROMETHAZINE] AdvReac Unknown restlessnes Verified 08/25/18 09:29 s Review of Systems Review of Systems All systems reviewed & are unremarkable except as noted in HPI and below Constitutional Denies chills, Denies fever(s), Denies lethargy and Denies weakness Eyes Denies change in vision, Denies eye discharge, Denies irritation and Denies loss of vision ENT Ears, Nose, Mouth, and Throat: Denies change in voice, Denies neck pain and Denies sore throat Cardiovascular Denies chest pain, Denies irregular heart rhythm, Denies lightheadedness, Denies palpitations, Reports dyspnea and Denies orthopnea Respiratory Reports cough (Dry), Reports dyspnea and Denies wheezing Gastrointestinal Gastrointestinal: Denies abdominal pain, Denies change in bowel habits, Denies diarrhea, Denies nausea and Denies vomiting Genitourinary Denies hematuria, Denies flank pain, Denies urinary incontinence and Denies urinary urgency Musculoskeletal Denies neck pain Integumentary/Breasts Denies pruritus, Denies erythema, Denies rash and Denies wounds Neurologic Denies confusion, Denies loss of vision and Denies weakness Psychiatric Denies anxiety, Denies confusion, Denies depression, Denies homicidal ideation and Denies suicidal ideation Endocrine Denies palpitations Hematologic/Lymphatic Denies easy bruising Allergic/Immunologic Denies wheezing [facility] Medical History Diabetes mellitus, type II (Chronic) Systolic congestive heart failure (Chronic ~2016) Adrenal insufficiency (Chronic Unknown) Arthritis (Chronic Unknown) Sleep apnea (Chronic Unknown) Peripheral neuropathy (Chronic Unknown) History of deep vein thrombosis (Resolved Unknown) Sweet's syndrome (Chronic 2010) Neutropenia (Chronic Unknown) Myelodysplasia (myelodysplastic syndrome) (Chronic Unknown) GERD (gastroesophageal reflux disease) (Chronic Unknown) Congestive heart failure (Chronic) High risk medication use (Chronic 07/27/16) Chronic fatigue (Chronic 11/20/16) Surgical History Vocal cord dysfunction (Resolved 1997) Family History: Reviewed 08/25/18 by Keely Naidu DO Exam Initial Vital Signs Initial Vital Signs: Vital Signs Temperature 100.6 F H 08/25/18 08:27 Pulse Rate 115 H 08/25/18 08:27 Respiratory Rate 18 08/25/18 08:27 Blood Pressure 136/72 08/25/18 08:27 Pulse Oximetry 88 L 08/25/18 08:27 Const General: cooperative, No comfortable (Patient is in moderate respiratory distress and appears uncomfortable.) and well developed Nutritional Appearance: well nourished Orientation: alert, awake and not confused HENMN Head: normocephalic and atraumatic Ears: external ears normal and TM's normal bilaterally Nose: external nose normal and No nasal discharge Face and sinus: sinuses nontender, face symmetric, no sinus tenderness and No dry mucous membranes Mouth: oral mucosae normal and moist mucous membranes Teeth and gingiva: dentition normal Throat: tonsils normal and uvula midline Eyes General: appearance normal, both eyes and all related structures Eyelids: eyelids normal Conjunctivae: conjunctivae normal Sclera: sclerae normal Pupils: PERRL EOM: EOM intact bilaterally Neck Neck: normal visual inspection, trachea midline, No lymphadenopathy, No midline deformity and No JVD Lymphatic: No lymphedema Chest Chest: normal inspection of the chest Resp Effort & Inspection: grunting, labored, respiratory distress (Moderate; speaks in phrases.) and no use of accessory muscles Auscultation: diminished lung sounds (Bilaterally, right worse than left.), no rales, no rhonchi and wheezes (Occasional, scattered, fine) Cardio Rate: tachycardic Rhythm: regular rhythm Heart Sounds: no click, no gallops, no murmurs and no rubs Pulses: normal peripheral pulses GI Inspection: non-distended Palpation: soft, no hepatosplenomegaly, No guarding, No pulsatile mass and No tender Auscultation: normal bowel sounds Back/Spine/Pelvis Back: No CVA tenderness Cervical Spine: cervical ROM normal and No pain with cervical ROM Thoracic/Lumbar Spine: thoracic and lumbar spine normal to inspection Skin General: no rashes or lesions noted, No jaundice and No petechiae Neuro General: alert, oriented x3, gait normal and no focal motor deficits Speech: speech normal Extrem General: full ROM, no pedal edema (There is no pitting.) and no calf tenderness Psych Appearance: well kempt Mental Status: mental status grossly normal Attitude: cooperative Thought Content: normal and suicidality Judgment: judgment good Course Course Narrative: Patient was evaluated in the emergency department by myself, immediately upon arrival. He was given supplemental oxygen, as his oxygen saturation was in the upper 80s on room air. Was placed on the cardiac cath rn, which showed a narrow complex rhythm a tachycardic rate in the 110s, as interpreted by ED MD. Patient was treated for his fever, and this did improve both his tachycardia and his tachypnea. However, the patient was still dyspneic. He was worked up with labs, chest x-ray and CTA of the thorax. His chest x-ray had shown pneumonia like findings, so he was given IV antibiotics in the emergency department. His CTA showed no evidence of a PE. I felt the patient should be admitted to the hospital, and I did discuss this with Dr. EDMONDS, who is the on-call hospitalist. He did agree to admit the patient to his service. Orders Ordered: Discontinued Medications Acetaminophen (Tylenol) 975 mg PO NOW ONE Stop: 08/25/18 09:27 Last Admin: 08/25/18 09:29 Dose: 975 mg Acetaminophen (Tylenol) 650 mg PO Q6HR PRN PRN Reason: As Needed for Fever/Mild Pain Last Admin: 08/26/18 10:32 Dose: 650 mg Admin: 08/25/18 20:57 Dose: 650 mg Hydrocodone Bitart/Acetaminophen ([place] 5/325) 1 tab PO Q4HR PRN PRN Reason: Pain, Moderate (4-6) Albuterol (Ventolin) 2.5 mg INH Q4H PRN PRN Reason: shortness of breath or wheezing Albuterol (Ventolin) 2.5 mg INH Q6H ABEL Last Admin: 08/27/18 18:01 Dose: 2.5 mg Admin: 08/27/18 13:07 Dose: 2.5 mg Admin: 08/27/18 07:48 Dose: 2.5 mg Admin: 08/27/18 01:11 Dose: Not Given Admin: 08/26/18 20:03 Dose: 2.5 mg Admin: 08/26/18 14:44 Dose: 2.5 mg Admin: 08/26/18 08:29 Dose: 2.5 mg Albuterol (Ventolin) 2.5 mg INH RTQ2HR PRN PRN Reason: Shortness Of Breath Last Admin: 08/26/18 08:53 Dose: 2.5 mg Albuterol (Ventolin) 2.5 mg INH [id number] PRN PRN Reason: Shortness Of Breath Albuterol (Ventolin) 2.5 mg INH [id number] [facility] Last Admin: 08/28/18 06:02 Dose: 2.5 mg Admin: 08/27/18 20:30 Dose: Not Given Bisacodyl (Dulcolax) 10 mg PO DAILY PRN PRN Reason: Constipation Bisacodyl (Dulcolax) 10 mg WA NOW ONE Stop: 08/26/18 07:41 Last Admin: 08/26/18 09:31 Dose: 10 mg Calcium Carbonate (Tums) 1,000 mg PO Q4HR PRN PRN Reason: Dyspepsia Fluconazole (Diflucan) 100 mg PO DAILY [facility] Stop: 08/27/18 09:01 Last Admin: 08/27/18 08:31 Dose: 100 mg Admin: 08/26/18 08:27 Dose: 100 mg Admin: 08/25/18 17:02 Dose: 100 mg Furosemide (Lasix) 40 mg PO DAILY [facility] Last Admin: 08/28/18 08:12 Dose: 40 mg Admin: 08/27/18 08:30 Dose: 40 mg Admin: 08/26/18 08:08 Dose: 40 mg Furosemide (Lasix) 40 mg IV NOW ONE Stop: 08/25/18 21:40 Last Admin: 08/25/18 22:02 Dose: 40 mg Heparin Sodium (Porcine) (Heparin) 5,000 unit SUBCUT BID [facility] Last Admin: 08/28/18 08:14 Dose: 5,000 unit Admin: 08/27/18 21:43 Dose: 5,000 unit Admin: 08/27/18 08:32 Dose: 5,000 unit Admin: 08/26/18 20:42 Dose: 5,000 unit Admin: 08/26/18 08:27 Dose: 5,000 unit Admin: 08/25/18 20:54 Dose: 5,000 unit Heparin Sodium (Porcine) (Heparin Lock [place]) 500 unit IV BID [facility] Last Admin: 08/28/18 08:24 Dose: 50 unit Admin: 08/27/18 21:43 Dose: 500 unit Admin: 08/27/18 12:23 Dose: 50 unit Admin: 08/26/18 20:44 Dose: 500 unit Admin: 08/26/18 10:15 Dose: 500 unit Admin: 08/26/18 09:31 Dose: 500 unit Heparin Sodium (Porcine) (Heparin [place]) 500 unit IV PRN PRN PRN Reason: Flush Last Admin: 08/28/18 04:09 Dose: 500 unit Hydrocortisone (Solu-Cortef) 100 mg IV NOW ONE Stop: 08/25/18 10:00 Last Admin: 08/25/18 10:09 Dose: 100 mg Hydrocortisone (Cortef) 20 mg PO 2100 [facility] Last Admin: 08/25/18 20:55 Dose: 20 mg Hydrocortisone (Cortef) 40 mg PO 0900 [facility] Last Admin: 08/26/18 08:08 Dose: 40 mg Hydrocortisone (Cortef) 40 mg PO 1500 [facility] Last Admin: 08/25/18 14:52 Dose: 40 mg Hydrocortisone (Solu-Cortef) 100 mg IV Q12H [facility] Last Admin: 08/28/18 08:16 Dose: 100 mg Admin: 08/27/18 21:44 Dose: 100 mg Admin: 08/27/18 08:34 Dose: 100 mg Admin: 08/26/18 20:44 Dose: 100 mg Admin: 08/26/18 10:14 Dose: 100 mg Sodium Chloride (Normal Saline 0.9%) 1,000 mls @ 500 mls/hr IV BOLUS ONE Stop: 08/25/18 10:48 Last Infusion: 08/25/18 11:55 Dose: 0 mls/hr Admin: 08/25/18 09:14 Dose: 500 mls/hr Azithromycin 500 mg/ Dextrose 250 mls @ 250 mls/hr IV NOW ONE Stop: 08/25/18 08:56 Last Infusion: 08/25/18 11:27 Dose: 0 mls/hr Admin: 08/25/18 10:08 Dose: 250 mls/hr Ceftriaxone Sodium/Dextrose (Rocephin) 2 gm in 50 mls @ 100 mls/hr IV NOW ONE Stop: 08/25/18 09:44 Last Infusion: 08/25/18 10:08 Dose: 0 mls/hr Admin: 08/25/18 09:19 Dose: 100 mls/hr Sodium Chloride (Normal Saline 0.9%) 1,000 mls @ 70 mls/hr IV CONT ABEL Last Admin: 08/25/18 14:50 Dose: 70 mls/hr Vancomycin HCl/Dextrose (Vancomycin) 750 mg in 150 mls @ 150 mls/hr IV NOW ONE Stop: 08/25/18 14:43 Last Admin: 08/25/18 14:50 Dose: 150 mls/hr Ceftriaxone Sodium/Dextrose (Rocephin) 1 gm in 50 mls @ 100 mls/hr IV Q24H [facility] Last Admin: 08/28/18 08:24 Dose: 100 mls/hr Infusion: 08/27/18 09:07 Dose: 100 mls/hr Admin: 08/27/18 08:37 Dose: 100 mls/hr Infusion: 08/26/18 08:50 Dose: 0 mls/hr Admin: 08/26/18 08:20 Dose: 100 mls/hr Doxycycline Hyclate 100 mg/ (Sodium Chloride) 100 mls @ 100 mls/hr IV Q12H [facility] Last Infusion: 08/28/18 04:09 Dose: 0 mls/hr Admin: 08/28/18 02:49 Dose: 100 mls/hr Infusion: 08/27/18 14:40 Dose: 0 mls/hr Admin: 08/27/18 13:39 Dose: 100 mls/hr Infusion: 08/27/18 03:10 Dose: 0 mls/hr Admin: 08/27/18 02:10 Dose: 100 mls/hr Infusion: 08/26/18 16:29 Dose: 0 mls/hr Admin: 08/26/18 14:09 Dose: 100 mls/hr Infusion: 08/26/18 03:30 Dose: 0 mls/hr Admin: 08/26/18 02:31 Dose: 100 mls/hr Infusion: 08/25/18 19:32 Dose: 0 mls/hr Admin: 08/25/18 16:34 Dose: 100 mls/hr Insulin Aspart (Novolog Flexpen) 0 unit SUBCUT ACHS [facility]; Protocol Last Admin: 08/28/18 08:11 Dose: Not Given Admin: 08/27/18 21:41 Dose: Not Given Admin: 08/27/18 17:01 Dose: Not Given Admin: 08/27/18 12:27 Dose: Not Given Admin: 08/27/18 08:40 Dose: 1 unit Admin: 08/26/18 20:38 Dose: Not Given Admin: 08/26/18 16:34 Dose: 3 unit Admin: 08/26/18 11:36 Dose: 2 unit Admin: 08/26/18 08:09 Dose: Admin: 08/25/18 20:53 Dose: 1 unit Admin: 08/25/18 17:07 Dose: 3 unit Magnesium Oxide (Mag Ox) 400 mg PO NOW ONE Stop: 08/26/18 21:43 Last Admin: 08/25/18 22:02 Dose: 400 mg Metformin HCl (Glucophage) 500 mg PO BID [facility] Last Admin: 08/28/18 08:14 Dose: 500 mg Admin: 08/27/18 21:44 Dose: 500 mg Admin: 08/27/18 08:30 Dose: 500 mg Admin: 08/26/18 20:44 Dose: 500 mg Admin: 08/26/18 08:08 Dose: 500 mg Admin: 08/25/18 20:55 Dose: 500 mg Metoprolol Tartrate (Lopressor) 25 mg PO BID [facility] Last Admin: 08/28/18 09:18 Dose: 25 mg Admin: 08/27/18 21:44 Dose: 25 mg Admin: 08/27/18 08:30 Dose: 25 mg Admin: 08/26/18 20:44 Dose: 25 mg Admin: 08/26/18 08:08 Dose: 25 mg Admin: 08/25/18 20:55 Dose: 25 mg Morphine Sulfate (Morphine) 2 mg IV NOW ONE Stop: 08/25/18 21:43 Last Admin: 08/25/18 22:15 Dose: 2 mg Famciclovir 250 Mg 250 mg PO Q12H [facility] Last Admin: 08/28/18 02:49 Dose: 250 mg Admin: 08/27/18 15:46 Dose: 250 mg Admin: 08/27/18 02:10 Dose: 250 mg Admin: 08/26/18 16:34 Dose: 250 mg Admin: 08/26/18 05:57 Dose: Admin: 08/25/18 14:55 Dose: Griseofulvin (Microsize 500 Mg) 500 mg PO BID [facility] Last Admin: 08/28/18 08:15 Dose: 500 mg Admin: 08/27/18 21:43 Dose: 500 mg Admin: 08/27/18 08:32 Dose: 500 mg Admin: 08/26/18 20:43 Dose: 500 mg Admin: 08/26/18 08:20 Dose: Admin: 08/25/18 18:17 Dose: Nystatin (Mycostatin Susp) 500,000 unit PO BID [facility] Last Admin: 08/28/18 08:14 Dose: 500,000 unit Admin: 08/27/18 21:43 Dose: 500,000 unit Admin: 08/27/18 12:23 Dose: 500,000 unit Ondansetron HCl (Zofran) 4 mg IV NOW ONE Stop: 08/25/18 08:30 Last Admin: 08/25/18 08:30 Dose: 4 mg Pantoprazole Sodium (Protonix) 20 mg PO 0600 [facility] Last Admin: 08/28/18 05:53 Dose: 20 mg Admin: 08/27/18 06:27 Dose: 20 mg Admin: 08/26/18 05:59 Dose: 20 mg Pantoprazole Sodium (Protonix) 20 mg PO BEDTIME [facility] Last Admin: 08/27/18 21:44 Dose: 20 mg Admin: 08/26/18 20:44 Dose: 20 mg Admin: 08/25/18 20:56 Dose: 20 mg Polyethylene Glycol (Miralax) 34 gm PO NOW ONE Stop: 08/26/18 07:41 Last Admin: 08/26/18 08:08 Dose: 34 gm Potassium Chloride (Klor-Con M20) 20 meq PO TID [facility] Last Admin: 08/28/18 08:12 Dose: 20 meq Admin: 08/27/18 21:44 Dose: 20 meq Admin: 08/27/18 15:47 Dose: 20 meq Admin: 08/27/18 08:30 Dose: 20 meq Admin: 08/26/18 20:44 Dose: 20 meq Admin: 08/26/18 14:10 Dose: 20 meq Admin: 08/26/18 08:20 Dose: 20 meq Admin: 08/25/18 20:56 Dose: 20 meq Admin: 08/25/18 14:56 Dose: 20 meq Pregabalin (Lyrica) 75 mg PO BID [facility] Last Admin: 08/28/18 08:14 Dose: 75 mg Admin: 08/27/18 21:44 Dose: 75 mg Admin: 08/27/18 08:34 Dose: 75 mg Admin: 08/26/18 20:44 Dose: 75 mg Admin: 08/26/18 08:08 Dose: 75 mg Admin: 08/25/18 20:56 Dose: 75 mg Admin: 08/25/18 14:56 Dose: 75 mg Simethicone (Mylicon) 80 mg PO BID [facility] Last Admin: 08/28/18 08:14 Dose: 80 mg Admin: 08/27/18 21:44 Dose: 80 mg Admin: 08/27/18 08:35 Dose: 80 mg Admin: 08/26/18 20:44 Dose: 80 mg Admin: 08/26/18 08:08 Dose: 80 mg Sodium Chloride (Normal Saline 0.9% Flush) 10 ml IV BID [facility] Last Admin: 08/28/18 09:19 Dose: 10 ml Admin: 08/27/18 21:43 Dose: 10 ml Admin: 08/27/18 08:35 Dose: 10 ml Admin: 08/26/18 20:44 Dose: 10 ml Admin: 08/26/18 09:32 Dose: 10 ml Admin: 08/25/18 20:57 Dose: 10 ml Sodium Chloride (Normal Saline 0.9% Flush) 10 ml IV PRN PRN PRN Reason: Flush Last Admin: 08/27/18 02:11 Dose: 10 ml Sucralfate (Carafate) 1 gm PO ACHS [facility] Last Admin: 08/28/18 08:13 Dose: 1 gm Admin: 08/27/18 21:44 Dose: 1 gm Admin: 08/27/18 17:02 Dose: 1 gm Admin: 08/27/18 12:29 Dose: 1 gm Admin: 08/27/18 08:31 Dose: 1 gm Admin: 08/26/18 20:44 Dose: 1 gm Admin: 08/26/18 16:34 Dose: 1 gm Admin: 08/26/18 11:36 Dose: 1 gm Admin: 08/26/18 08:08 Dose: 1 gm Admin: 08/25/18 20:56 Dose: 1 gm Admin: 08/25/18 16:21 Dose: 1 gm Warfarin Sodium (Coumadin) 1 mg PO [id number] [facility] Last Admin: 08/26/18 16:34 Dose: 1 mg Warfarin Sodium (Coumadin) 2.5 mg PO 1700 [facility] Last Admin: 08/27/18 17:02 Dose: 2.5 mg Admin: 08/26/18 16:34 Dose: 2.5 mg Admin: 08/25/18 18:16 Dose: 2.5 mg Vital Signs - 8 hr 08/25/18 08:27 08/25/18 09:29 08/25/18 09:43 Temperature 100.6 F H 100.2 F H 102.4 F H Pulse Rate 115 H 120 H Respiratory Rate 18 38 H Blood Pressure 136/72 Blood Pressure [Left Arm] 133/72 Pulse Oximetry 88 L 97 MDM - Fever Medical Records Attestation: I reviewed the patient's medical records. Lab Data Attestation: I reviewed the patient's lab results. Result diagrams: 08/28/18 07:33 08/28/18 07:33 Lab Results 08/25/18 08/25/18 08/25/18 Range/Units 09:00 09:05 09:05 WBC 4.9 (4.5-11.0) X10^3/uL RBC 3.66 L (4.5-5.9) X10^6/uL Hgb 11.7 L (13.5-17.5) g/dL Hct 34.2 L (41-53) % MCV 93.4 (80-100) fL MCH 31.8 (26-34) PG MCHC 34.1 (30-36) % RDW 15.8 H (11.6-14.8) % Plt Count 165 (150-400) X10^3/uL Neut % (Auto) 82.5 H (50-75) % Lymph % (Auto) 10.8 L (25-40) % [place] % (Auto) 6.1 (3-14) % Eos % (Auto) 0.3 L (2-4) % Baso % (Auto) 0.3 (0-2) % Neut # (Auto) 4000 (1412-9908) /uL PT (10.1-12.7) SECONDS INR (0.9-1.3) ABG pH (7.35-7.45) ABG pCO2 (35-45) mmHg ABG pO2 (80-100) mmHg ABG HCO3 (22-26) mmol/L ABG Total CO2 (21-31) mmol/L ABG O2 Saturation (95-100) % ABG Base Excess (-2-2) mmol/L FiO2 Sodium (137-145) mmol/L Potassium (3.4-5.1) mmol/L Chloride (98-107) mmol/L Carbon Dioxide (22-32) mmol/L BUN (9-20) mg/dL Creatinine (0.66-1.25) mg/dL Estimated GFR (>60) mL/min BUN/Creatinine Ratio (6-22) Glucose (80-110) mg/dL Lactate (0.7-2.1) mmol/L Calcium (8.4-10.2) mg/dL Phosphorus (2.3-3.7) mg/dL Magnesium (1.6-2.3) mg/dL Total Bilirubin (0.2-1.3) mg/dL AST (17-59) IU/L ALT (21-72) IU/L Alkaline Phosphatase (38-126) U/L B-Natriuretic Peptide (<100) Total Protein (6.3-8.2) g/dL Albumin (3.5-5.0) g/dL Globulin (1.7-4.1) g/dL Albumin/Globulin Ratio (1.0-2.8) Procalcitonin 0.25 (<0.5) ng/mL Urine Color Yellow Urine Appearance Clear Urine pH 7.0 (4.5-8.0) Ur Specific [place] 1.015 (1.000-1.035) Urine Protein 1+ H (Negative) Urine Glucose (UA) Negative (Normal) g/dL Urine Ketones Negative (NEGATIVE) Urine Occult Blood 2+ H (Negative) Urine Nitrate Negative (Negative) Urine Bilirubin Negative (NEGATIVE) Urine Urobilinogen 0.2 (0.2) E.U./dL Ur Leukocyte Esterase Negative (NEGATIVE) Urine RBC 5-10/hpf H (0-5/HPF) Urine WBC None seen (0-5/HPF) Urine Bacteria None seen (None) Ur Culture Indicated? Cult not indicated Micro UA Comment Not Reportable Influenza A & B (PCR) (Negative) 08/25/18 08/25/18 08/25/18 Range/Units 09:05 09:05 09:05 WBC (4.5-11.0) X10^3/uL RBC (4.5-5.9) X10^6/uL Hgb (13.5-17.5) g/dL Hct (41-53) % MCV (80-100) fL MCH (26-34) PG MCHC (30-36) % RDW (11.6-14.8) % Plt Count (150-400) X10^3/uL Neut % (Auto) (50-75) % Lymph % (Auto) (25-40) % [place] % (Auto) (3-14) % Eos % (Auto) (2-4) % Baso % (Auto) (0-2) % Neut # (Auto) (0259-8319) /uL PT (10.1-12.7) SECONDS INR (0.9-1.3) ABG pH (7.35-7.45) ABG pCO2 (35-45) mmHg ABG pO2 (80-100) mmHg ABG HCO3 (22-26) mmol/L ABG Total CO2 (21-31) mmol/L ABG O2 Saturation (95-100) % ABG Base Excess (-2-2) mmol/L FiO2 Sodium 137 (137-145) mmol/L Potassium 4.0 (3.4-5.1) mmol/L Chloride 98 (98-107) mmol/L Carbon Dioxide 27 (22-32) mmol/L BUN 22 H (9-20) mg/dL Creatinine 1.20 (0.66-1.25) mg/dL Estimated GFR 58.7 L (>60) mL/min BUN/Creatinine Ratio 18.3 (6-22) Glucose 162 H (80-110) mg/dL Lactate 1.0 (0.7-2.1) mmol/L Calcium 8.9 (8.4-10.2) mg/dL Phosphorus (2.3-3.7) mg/dL Magnesium (1.6-2.3) mg/dL Total Bilirubin 0.3 (0.2-1.3) mg/dL AST 15 L (17-59) IU/L ALT 21 (21-72) IU/L Alkaline Phosphatase 61 (38-126) U/L B-Natriuretic Peptide < 100.0 (<100) Total Protein 7.4 (6.3-8.2) g/dL Albumin 3.8 (3.5-5.0) g/dL Globulin 3.6 (1.7-4.1) g/dL Albumin/Globulin Ratio 1.1 (1.0-2.8) Procalcitonin (<0.5) ng/mL Urine Color Urine Appearance Urine pH (4.5-8.0) Ur Specific [place] (1.000-1.035) Urine Protein (Negative) Urine Glucose (UA) (Normal) g/dL Urine Ketones (NEGATIVE) Urine Occult Blood (Negative) Urine Nitrate (Negative) Urine Bilirubin (NEGATIVE) Urine Urobilinogen (0.2) E.U./dL Ur Leukocyte Esterase (NEGATIVE) Urine RBC (0-5/HPF) Urine WBC (0-5/HPF) Urine Bacteria (None) Ur Culture Indicated? Micro UA Comment Influenza A & B (PCR) (Negative) 08/25/18 08/25/18 08/25/18 Range/Units 09:05 10:00 10:32 WBC (4.5-11.0) X10^3/uL RBC (4.5-5.9) X10^6/uL Hgb (13.5-17.5) g/dL Hct (41-53) % MCV (80-100) fL MCH (26-34) PG MCHC (30-36) % RDW (11.6-14.8) % Plt Count (150-400) X10^3/uL Neut % (Auto) (50-75) % Lymph % (Auto) (25-40) % [place] % (Auto) (3-14) % Eos % (Auto) (2-4) % Baso % (Auto) (0-2) % Neut # (Auto) (4348-9406) /uL PT (10.1-12.7) SECONDS INR (0.9-1.3) ABG pH 7.43 (7.35-7.45) ABG pCO2 33.3 L (35-45) mmHg ABG pO2 79 L (80-100) mmHg ABG HCO3 22 (22-26) mmol/L ABG Total CO2 23 (21-31) mmol/L ABG O2 Saturation 96 (95-100) % ABG Base Excess -2.0 (-2-2) mmol/L FiO2 24 Sodium (137-145) mmol/L Potassium (3.4-5.1) mmol/L Chloride (98-107) mmol/L Carbon Dioxide (22-32) mmol/L BUN (9-20) mg/dL Creatinine (0.66-1.25) mg/dL Estimated GFR (>60) mL/min BUN/Creatinine Ratio (6-22) Glucose (80-110) mg/dL Lactate (0.7-2.1) mmol/L Calcium (8.4-10.2) mg/dL Phosphorus 1.8 L (2.3-3.7) mg/dL Magnesium 1.7 (1.6-2.3) mg/dL Total Bilirubin (0.2-1.3) mg/dL AST (17-59) IU/L ALT (21-72) IU/L Alkaline Phosphatase (38-126) U/L B-Natriuretic Peptide (<100) Total Protein (6.3-8.2) g/dL Albumin (3.5-5.0) g/dL Globulin (1.7-4.1) g/dL Albumin/Globulin Ratio (1.0-2.8) Procalcitonin (<0.5) ng/mL Urine Color Urine Appearance Urine pH (4.5-8.0) Ur Specific [place] (1.000-1.035) Urine Protein (Negative) Urine Glucose (UA) (Normal) g/dL Urine Ketones (NEGATIVE) Urine Occult Blood (Negative) Urine Nitrate (Negative) Urine Bilirubin (NEGATIVE) Urine Urobilinogen (0.2) E.U./dL Ur Leukocyte Esterase (NEGATIVE) Urine RBC (0-5/HPF) Urine WBC (0-5/HPF) Urine Bacteria (None) Ur Culture Indicated? Micro UA Comment Influenza A & B (PCR) Negative (Negative) 08/25/18 08/26/18 08/26/18 Range/Units 17:34 06:20 06:20 WBC 4.2 L (4.5-11.0) X10^3/uL RBC 3.47 L (4.5-5.9) X10^6/uL Hgb 11.1 L (13.5-17.5) g/dL Hct 33.0 L (41-53) % MCV 95.0 (80-100) fL MCH 31.9 (26-34) PG MCHC 33.5 (30-36) % RDW 15.9 H (11.6-14.8) % Plt Count 161 (150-400) X10^3/uL Neut % (Auto) 76.5 H (50-75) % Lymph % (Auto) 12.2 L (25-40) % [place] % (Auto) 8.5 (3-14) % Eos % (Auto) 0.5 L (2-4) % Baso % (Auto) 2.3 H (0-2) % Neut # (Auto) 3200 (5562-5908) /uL PT 20.3 H (10.1-12.7) SECONDS INR 1.8 H (0.9-1.3) ABG pH (7.35-7.45) ABG pCO2 (35-45) mmHg ABG pO2 (80-100) mmHg ABG HCO3 (22-26) mmol/L ABG Total CO2 (21-31) mmol/L ABG O2 Saturation (95-100) % ABG Base Excess (-2-2) mmol/L FiO2 Sodium 138 (137-145) mmol/L Potassium 4.1 (3.4-5.1) mmol/L Chloride 98 (98-107) mmol/L Carbon Dioxide 27 (22-32) mmol/L BUN 16 (9-20) mg/dL Creatinine 1.30 H (0.66-1.25) mg/dL Estimated GFR 53.5 L (>60) mL/min BUN/Creatinine Ratio 12.3 (6-22) Glucose 106 (80-110) mg/dL Lactate (0.7-2.1) mmol/L Calcium 8.6 (8.4-10.2) mg/dL Phosphorus (2.3-3.7) mg/dL Magnesium (1.6-2.3) mg/dL Total Bilirubin 0.2 (0.2-1.3) mg/dL AST 16 L (17-59) IU/L ALT 17 L (21-72) IU/L Alkaline Phosphatase 58 (38-126) U/L B-Natriuretic Peptide (<100) Total Protein 7.3 (6.3-8.2) g/dL Albumin 3.7 (3.5-5.0) g/dL Globulin 3.6 (1.7-4.1) g/dL Albumin/Globulin Ratio 1.0 (1.0-2.8) Procalcitonin (<0.5) ng/mL Urine Color Urine Appearance Urine pH (4.5-8.0) Ur Specific [place] (1.000-1.035) Urine Protein (Negative) Urine Glucose (UA) (Normal) g/dL Urine Ketones (NEGATIVE) Urine Occult Blood (Negative) Urine Nitrate (Negative) Urine Bilirubin (NEGATIVE) Urine Urobilinogen (0.2) E.U./dL Ur Leukocyte Esterase (NEGATIVE) Urine RBC (0-5/HPF) Urine WBC (0-5/HPF) Urine Bacteria (None) Ur Culture Indicated? Micro UA Comment Influenza A & B (PCR) (Negative) 08/26/18 08/26/18 08/26/18 Range/Units 06:20 06:20 08:55 WBC (4.5-11.0) X10^3/uL RBC (4.5-5.9) X10^6/uL Hgb (13.5-17.5) g/dL Hct (41-53) % MCV (80-100) fL MCH (26-34) PG MCHC (30-36) % RDW (11.6-14.8) % Plt Count (150-400) X10^3/uL Neut % (Auto) (50-75) % Lymph % (Auto) (25-40) % [place] % (Auto) (3-14) % Eos % (Auto) (2-4) % Baso % (Auto) (0-2) % Neut # (Auto) (2083-1007) /uL PT 22.3 H (10.1-12.7) SECONDS INR 1.9 H (0.9-1.3) ABG pH 7.45 (7.35-7.45) ABG pCO2 31.8 L (35-45) mmHg ABG pO2 75 L (80-100) mmHg ABG HCO3 22 (22-26) mmol/L ABG Total CO2 23 (21-31) mmol/L ABG O2 Saturation 96 (95-100) % ABG Base Excess -2.0 (-2-2) mmol/L FiO2 28 Sodium (137-145) mmol/L Potassium (3.4-5.1) mmol/L Chloride (98-107) mmol/L Carbon Dioxide (22-32) mmol/L BUN (9-20) mg/dL Creatinine (0.66-1.25) mg/dL Estimated GFR (>60) mL/min BUN/Creatinine Ratio (6-22) Glucose (80-110) mg/dL Lactate (0.7-2.1) mmol/L Calcium (8.4-10.2) mg/dL Phosphorus 3.0 D (2.3-3.7) mg/dL Magnesium (1.6-2.3) mg/dL Total Bilirubin (0.2-1.3) mg/dL AST (17-59) IU/L ALT (21-72) IU/L Alkaline Phosphatase (38-126) U/L B-Natriuretic Peptide (<100) Total Protein (6.3-8.2) g/dL Albumin (3.5-5.0) g/dL Globulin (1.7-4.1) g/dL Albumin/Globulin Ratio (1.0-2.8) Procalcitonin (<0.5) ng/mL Urine Color Urine Appearance Urine pH (4.5-8.0) Ur Specific [place] (1.000-1.035) Urine Protein (Negative) Urine Glucose (UA) (Normal) g/dL Urine Ketones (NEGATIVE) Urine Occult Blood (Negative) Urine Nitrate (Negative) Urine Bilirubin (NEGATIVE) Urine Urobilinogen (0.2) E.U./dL Ur Leukocyte Esterase (NEGATIVE) Urine RBC (0-5/HPF) Urine WBC (0-5/HPF) Urine Bacteria (None) Ur Culture Indicated? Micro UA Comment Influenza A & B (PCR) (Negative) 08/27/18 08/27/18 08/27/18 Range/Units 07:30 07:30 09:14 WBC 2.5 L (4.5-11.0) X10^3/uL RBC 3.06 L (4.5-5.9) X10^6/uL Hgb 9.8 L (13.5-17.5) g/dL Hct 28.7 L (41-53) % MCV 93.7 (80-100) fL MCH 32.0 (26-34) PG MCHC 34.2 (30-36) % RDW 15.7 H (11.6-14.8) % Plt Count 150 (150-400) X10^3/uL Neut % (Auto) 64.5 (50-75) % Lymph % (Auto) 21.0 L (25-40) % [place] % (Auto) 12.6 (3-14) % Eos % (Auto) 0.4 L (2-4) % Baso % (Auto) 1.5 (0-2) % Neut # (Auto) 1600 (6948-6117) /uL PT 22.9 H (10.1-12.7) SECONDS INR 2.0 H (0.9-1.3) ABG pH (7.35-7.45) ABG pCO2 (35-45) mmHg ABG pO2 (80-100) mmHg ABG HCO3 (22-26) mmol/L ABG Total CO2 (21-31) mmol/L ABG O2 Saturation (95-100) % ABG Base Excess (-2-2) mmol/L FiO2 Sodium 138 (137-145) mmol/L Potassium 4.1 (3.4-5.1) mmol/L Chloride 100 (98-107) mmol/L Carbon Dioxide 26 (22-32) mmol/L BUN 21 H (9-20) mg/dL Creatinine 1.10 (0.66-1.25) mg/dL Estimated GFR > 60.0 (>60) mL/min BUN/Creatinine Ratio 19.1 (6-22) Glucose 150 H (80-110) mg/dL Lactate (0.7-2.1) mmol/L Calcium 8.8 (8.4-10.2) mg/dL Phosphorus (2.3-3.7) mg/dL Magnesium (1.6-2.3) mg/dL Total Bilirubin 0.1 L (0.2-1.3) mg/dL AST 18 (17-59) IU/L ALT 13 L (21-72) IU/L Alkaline Phosphatase 55 (38-126) U/L B-Natriuretic Peptide (<100) Total Protein 6.7 (6.3-8.2) g/dL Albumin 3.4 L (3.5-5.0) g/dL Globulin 3.3 (1.7-4.1) g/dL Albumin/Globulin Ratio 1.0 (1.0-2.8) Procalcitonin (<0.5) ng/mL Urine Color Urine Appearance Urine pH (4.5-8.0) Ur Specific [place] (1.000-1.035) Urine Protein (Negative) Urine Glucose (UA) (Normal) g/dL Urine Ketones (NEGATIVE) Urine Occult Blood (Negative) Urine Nitrate (Negative) Urine Bilirubin (NEGATIVE) Urine Urobilinogen (0.2) E.U./dL Ur Leukocyte Esterase (NEGATIVE) Urine RBC (0-5/HPF) Urine WBC (0-5/HPF) Urine Bacteria (None) Ur Culture Indicated? Micro UA Comment Influenza A & B (PCR) (Negative) 08/28/18 08/28/18 08/28/18 Range/Units 07:33 07:33 07:33 WBC 2.6 L (4.5-11.0) X10^3/uL RBC 3.28 L (4.5-5.9) X10^6/uL Hgb 10.4 L (13.5-17.5) g/dL Hct 30.5 L (41-53) % MCV 93.1 (80-100) fL MCH 31.6 (26-34) PG MCHC 33.9 (30-36) % RDW 15.8 H (11.6-14.8) % Plt Count 166 (150-400) X10^3/uL Neut % (Auto) 72.1 (50-75) % Lymph % (Auto) 19.7 L (25-40) % [place] % (Auto) 6.4 (3-14) % Eos % (Auto) 0.3 L (2-4) % Baso % (Auto) 1.5 (0-2) % Neut # (Auto) 1900 (8189-9927) /uL PT 26.8 H (10.1-12.7) SECONDS INR 2.3 H (0.9-1.3) ABG pH (7.35-7.45) ABG pCO2 (35-45) mmHg ABG pO2 (80-100) mmHg ABG HCO3 (22-26) mmol/L ABG Total CO2 (21-31) mmol/L ABG O2 Saturation (95-100) % ABG Base Excess (-2-2) mmol/L FiO2 Sodium 139 (137-145) mmol/L Potassium 4.3 (3.4-5.1) mmol/L Chloride 102 (98-107) mmol/L Carbon Dioxide 24 (22-32) mmol/L BUN 20 (9-20) mg/dL Creatinine 1.10 (0.66-1.25) mg/dL Estimated GFR > 60.0 (>60) mL/min BUN/Creatinine Ratio 18.2 (6-22) Glucose 176 H (80-110) mg/dL Lactate (0.7-2.1) mmol/L Calcium 9.1 (8.4-10.2) mg/dL Phosphorus (2.3-3.7) mg/dL Magnesium (1.6-2.3) mg/dL Total Bilirubin 0.1 L (0.2-1.3) mg/dL AST 21 (17-59) IU/L ALT 16 L (21-72) IU/L Alkaline Phosphatase 53 (38-126) U/L B-Natriuretic Peptide (<100) Total Protein 6.8 (6.3-8.2) g/dL Albumin 3.5 (3.5-5.0) g/dL Globulin 3.3 (1.7-4.1) g/dL Albumin/Globulin Ratio 1.1 (1.0-2.8) Procalcitonin (<0.5) ng/mL Urine Color Urine Appearance Urine pH (4.5-8.0) Ur Specific [place] (1.000-1.035) Urine Protein (Negative) Urine Glucose (UA) (Normal) g/dL Urine Ketones (NEGATIVE) Urine Occult Blood (Negative) Urine Nitrate (Negative) Urine Bilirubin (NEGATIVE) Urine Urobilinogen (0.2) E.U./dL Ur Leukocyte Esterase (NEGATIVE) Urine RBC (0-5/HPF) Urine WBC (0-5/HPF) Urine Bacteria (None) Ur Culture Indicated? Micro UA Comment Influenza A & B (PCR) (Negative) Point of Care Testing Glucose POC 163 Urine Dip Bedside Urine Glucose Negative Bedside Urine Bilirubin - Negative Bedside Urine Ketone - Negative Urine Specific [place] 1.020 Bedside Urine Occult Blood + Bedside Urine pH 6.5 Bedside Urine Protein + 30 Bedside Urine Urobilinogen - Negative Bedside Urine Nitrite - Negative Bedside Urine Leukocytes - Negative Esterase ECG Data Interpretation: Twelve lead EKG performed on August 25, 2018 at 9:15 a.m.: Regular ventricular rhythm with a rate of 109 beats per minute [place] interval 152 millisecond QRS duration 96 milliseconds QTC interval 386 millisecond Normal axis No ectopy In summary, sinus tachycardia; no STEMI; 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 Discharge Plan Departure Patient Disposition: Admitted As Inpatient Clinical Impression: Acute dyspnea, Fever, Pneumonia Discharge Date/Time: 08/25/18 12:20 Interventions: ED Discharge Assessment Last Done: 08/25/18 12:04 Admit Date/Time: 08/25/18 12:08 Admit Provider: Keely Naidu
--- NOTE | 2018-08-25 08:36 | ED_ITS ---
HPI - Fever General Chief Complaint: Fever Stated Complaint: Fever Time Seen by Provider: 08/25/18 08:17 Source: patient and EMS Mode of arrival: EMS Limitations: physical limitation (Patient is dyspneic and cannot converse much.) History of Present Illness HPI Narrative: Patient states that symptoms began 5-6 days ago, when he developed a mild cough and increased dyspnea. Patient states that he has been dyspneic at baseline since he was diagnosed with myelodysplastic syndrome, but that this is much worse. He was seen yesterday and a chest x-ray was done which demonstrated pneumonia. Patient was started on Augmentin for this but symptoms worsened overnight. Patient had a few episodes of vomiting, he states he feels more short of breath now than he did before. Patient does have a history of CHF, but no COPD. He is a former smoker. Patient denies chest pain. He has had a low-grade fever, which has gotten as high as 100.8. Patient denies other complaints at this time. Related Data Home Medications Medication Instructions Recorded Confirmed Glucose: Test Strips 1 str MISCELLANEOUS DIRECTED 03/04/18 08/25/18 metoprolol tartrate 25 mg PO BID 03/04/18 08/25/18 potassium chloride [Klor-Con M20] 20 meq PO TID 06/21/18 08/25/18 acetaminophen 650 mg PO PRN PRN 08/24/18 08/25/18 griseofulvin microsize 500 mg PO BID 08/24/18 08/25/18 furosemide 40 mg PO DAILY 08/25/18 08/25/18 hydrocortisone 40 mg PO BID 08/25/18 08/25/18 warfarin 2.5 mg PO QPM 08/25/18 08/25/18 warfarin [Coumadin] 1 mg PO MOWEFR 08/25/18 08/25/18 hydrocortisone 10 mg PO BEDTIME 08/31/18 08/31/18 prednisone 60 mg PO DAILY 08/31/18 08/31/18 Previous Rx's Medication Instructions Recorded famciclovir 250 mg PO Q12H #120 tab 01/24/18 omeprazole 20 mg capsule,delayed 20 mg PO BEDTIME #30 cap 05/27/18 release albuterol sulfate 2.5 mg/3 mL 2.5 mg INHALATION Q4H PRN #90 ml 06/10/18 (0.083 %) solution for nebulization cefdinir 300 mg PO Q12H 10 Days #20 cap 08/28/18 doxycycline hyclate 100 mg PO BID 10 Days #20 tab 08/28/18 sucralfate 1 gm PO ACHS 30 Days tab 08/28/18 metformin 500 mg tablet 500 mg PO BID #60 tab 09/01/18 Allergies Allergy/AdvReac Type Severity Reaction Status Date / Time promethazine [PROMETHAZINE] AdvReac Unknown restlessnes Verified 08/25/18 09:29 s Review of Systems Review of Systems All systems reviewed & are unremarkable except as noted in HPI and below Constitutional Denies chills, Denies fever(s), Denies lethargy and Denies weakness Eyes Denies change in vision, Denies eye discharge, Denies irritation and Denies loss of vision ENT Ears, Nose, Mouth, and Throat: Denies change in voice, Denies neck pain and Denies sore throat Cardiovascular Denies chest pain, Denies irregular heart rhythm, Denies lightheadedness, Denies palpitations, Reports dyspnea and Denies orthopnea Respiratory Reports cough (Dry), Reports dyspnea and Denies wheezing Gastrointestinal Gastrointestinal: Denies abdominal pain, Denies change in bowel habits, Denies diarrhea, Denies nausea and Denies vomiting Genitourinary Denies hematuria, Denies flank pain, Denies urinary incontinence and Denies urinary urgency Musculoskeletal Denies neck pain Integumentary/Breasts Denies pruritus, Denies erythema, Denies rash and Denies wounds Neurologic Denies confusion, Denies loss of vision and Denies weakness Psychiatric Denies anxiety, Denies confusion, Denies depression, Denies homicidal ideation and Denies suicidal ideation Endocrine Denies palpitations Hematologic/Lymphatic Denies easy bruising Allergic/Immunologic Denies wheezing [facility] Medical History Diabetes mellitus, type II (Chronic) Systolic congestive heart failure (Chronic ~2016) Adrenal insufficiency (Chronic Unknown) Arthritis (Chronic Unknown) Sleep apnea (Chronic Unknown) Peripheral neuropathy (Chronic Unknown) History of deep vein thrombosis (Resolved Unknown) Sweet's syndrome (Chronic 2010) Neutropenia (Chronic Unknown) Myelodysplasia (myelodysplastic syndrome) (Chronic Unknown) GERD (gastroesophageal reflux disease) (Chronic Unknown) Congestive heart failure (Chronic) High risk medication use (Chronic 07/27/16) Chronic fatigue (Chronic 11/20/16) Surgical History Vocal cord dysfunction (Resolved 1997) Family History: Reviewed 08/25/18 by Keely Naidu DO Exam Initial Vital Signs Initial Vital Signs: Vital Signs Temperature 100.6 F H 08/25/18 08:27 Pulse Rate 115 H 08/25/18 08:27 Respiratory Rate 18 08/25/18 08:27 Blood Pressure 136/72 08/25/18 08:27 Pulse Oximetry 88 L 08/25/18 08:27 Const General: cooperative, No comfortable (Patient is in moderate respiratory distress and appears uncomfortable.) and well developed Nutritional Appearance: well nourished Orientation: alert, awake and not confused HENPA Head: normocephalic and atraumatic Ears: external ears normal and TM's normal bilaterally Nose: external nose normal and No nasal discharge Face and sinus: sinuses nontender, face symmetric, no sinus tenderness and No dry mucous membranes Mouth: oral mucosae normal and moist mucous membranes Teeth and gingiva: dentition normal Throat: tonsils normal and uvula midline Eyes General: appearance normal, both eyes and all related structures Eyelids: eyelids normal Conjunctivae: conjunctivae normal Sclera: sclerae normal Pupils: PERRL EOM: EOM intact bilaterally Neck Neck: normal visual inspection, trachea midline, No lymphadenopathy, No midline deformity and No JVD Lymphatic: No lymphedema Chest Chest: normal inspection of the chest Resp Effort & Inspection: grunting, labored, respiratory distress (Moderate; speaks in phrases.) and no use of accessory muscles Auscultation: diminished lung sounds (Bilaterally, right worse than left.), no rales, no rhonchi and wheezes (Occasional, scattered, fine) Cardio Rate: tachycardic Rhythm: regular rhythm Heart Sounds: no click, no gallops, no murmurs and no rubs Pulses: normal peripheral pulses GI Inspection: non-distended Palpation: soft, no hepatosplenomegaly, No guarding, No pulsatile mass and No tender Auscultation: normal bowel sounds Back/Spine/Pelvis Back: No CVA tenderness Cervical Spine: cervical ROM normal and No pain with cervical ROM Thoracic/Lumbar Spine: thoracic and lumbar spine normal to inspection Skin General: no rashes or lesions noted, No jaundice and No petechiae Neuro General: alert, oriented x3, gait normal and no focal motor deficits Speech: speech normal Extrem General: full ROM, no pedal edema (There is no pitting.) and no calf tenderness Psych Appearance: well kempt Mental Status: mental status grossly normal Attitude: cooperative Thought Content: normal and suicidality Judgment: judgment good Course Course Narrative: Patient was evaluated in the emergency department by myself, immediately upon arrival. He was given supplemental oxygen, as his oxygen saturation was in the upper 80s on room air. Was placed on the defense attorney , which showed a narrow complex rhythm a tachycardic rate in the 110s, as interpreted by ED MD. Patient was treated for his fever, and this did improve both his tachycardia and his tachypnea. However, the patient was still dyspneic. He was worked up with labs, chest x-ray and CTA of the thorax. His chest x-ray had shown pneumonia like findings, so he was given IV antibiotics in the emergency department. His CTA showed no evidence of a PE. I felt the patient should be admitted to the hospital, and I did discuss this with Dr. EDMONDS , who is the on-call hospitalist. He did agree to admit the patient to his service. Orders Ordered: Discontinued Medications Acetaminophen (Tylenol) 975 mg PO NOW ONE Stop: 08/25/18 09:27 Last Admin: 08/25/18 09:29 Dose: 975 mg Acetaminophen (Tylenol) 650 mg PO Q6HR PRN PRN Reason: As Needed for Fever/Mild Pain Last Admin: 08/26/18 10:32 Dose: 650 mg Admin: 08/25/18 20:57 Dose: 650 mg Hydrocodone Bitart/Acetaminophen (Burr 5/325) 1 tab PO Q4HR PRN PRN Reason: Pain, Moderate (4-6) Albuterol (Ventolin) 2.5 mg INH Q4H PRN PRN Reason: shortness of breath or wheezing Albuterol (Ventolin) 2.5 mg INH Q6H ABEL Last Admin: 08/27/18 18:01 Dose: 2.5 mg Admin: 08/27/18 13:07 Dose: 2.5 mg Admin: 08/27/18 07:48 Dose: 2.5 mg Admin: 08/27/18 01:11 Dose: Not Given Admin: 08/26/18 20:03 Dose: 2.5 mg Admin: 08/26/18 14:44 Dose: 2.5 mg Admin: 08/26/18 08:29 Dose: 2.5 mg Albuterol (Ventolin) 2.5 mg INH RTQ2HR PRN PRN Reason: Shortness Of Breath Last Admin: 08/26/18 08:53 Dose: 2.5 mg Albuterol (Ventolin) 2.5 mg INH [id number] PRN PRN Reason: Shortness Of Breath Albuterol (Ventolin) 2.5 mg INH [id number] [facility] Last Admin: 08/28/18 06:02 Dose: 2.5 mg Admin: 08/27/18 20:30 Dose: Not Given Bisacodyl (Dulcolax) 10 mg PO DAILY PRN PRN Reason: Constipation Bisacodyl (Dulcolax) 10 mg ID NOW ONE Stop: 08/26/18 07:41 Last Admin: 08/26/18 09:31 Dose: 10 mg Calcium Carbonate (Tums) 1,000 mg PO Q4HR PRN PRN Reason: Dyspepsia Fluconazole (Diflucan) 100 mg PO DAILY [facility] Stop: 08/27/18 09:01 Last Admin: 08/27/18 08:31 Dose: 100 mg Admin: 08/26/18 08:27 Dose: 100 mg Admin: 08/25/18 17:02 Dose: 100 mg Furosemide (Lasix) 40 mg PO DAILY [facility] Last Admin: 08/28/18 08:12 Dose: 40 mg Admin: 08/27/18 08:30 Dose: 40 mg Admin: 08/26/18 08:08 Dose: 40 mg Furosemide (Lasix) 40 mg IV NOW ONE Stop: 08/25/18 21:40 Last Admin: 08/25/18 22:02 Dose: 40 mg Heparin Sodium (Porcine) (Heparin) 5,000 unit SUBCUT BID [facility] Last Admin: 08/28/18 08:14 Dose: 5,000 unit Admin: 08/27/18 21:43 Dose: 5,000 unit Admin: 08/27/18 08:32 Dose: 5,000 unit Admin: 08/26/18 20:42 Dose: 5,000 unit Admin: 08/26/18 08:27 Dose: 5,000 unit Admin: 08/25/18 20:54 Dose: 5,000 unit Heparin Sodium (Porcine) (Heparin Lock Port) 500 unit IV BID [facility] Last Admin: 08/28/18 08:24 Dose: 50 unit Admin: 08/27/18 21:43 Dose: 500 unit Admin: 08/27/18 12:23 Dose: 50 unit Admin: 08/26/18 20:44 Dose: 500 unit Admin: 08/26/18 10:15 Dose: 500 unit Admin: 08/26/18 09:31 Dose: 500 unit Heparin Sodium (Porcine) (Heparin Lock Port) 500 unit IV PRN PRN PRN Reason: Flush Last Admin: 08/28/18 04:09 Dose: 500 unit Hydrocortisone (Solu-Cortef) 100 mg IV NOW ONE Stop: 08/25/18 10:00 Last Admin: 08/25/18 10:09 Dose: 100 mg Hydrocortisone (Cortef) 20 mg PO 2100 [facility] Last Admin: 08/25/18 20:55 Dose: 20 mg Hydrocortisone (Cortef) 40 mg PO 0900 [facility] Last Admin: 08/26/18 08:08 Dose: 40 mg Hydrocortisone (Cortef) 40 mg PO 1500 [facility] Last Admin: 08/25/18 14:52 Dose: 40 mg Hydrocortisone (Solu-Cortef) 100 mg IV Q12H [facility] Last Admin: 08/28/18 08:16 Dose: 100 mg Admin: 08/27/18 21:44 Dose: 100 mg Admin: 08/27/18 08:34 Dose: 100 mg Admin: 08/26/18 20:44 Dose: 100 mg Admin: 08/26/18 10:14 Dose: 100 mg Sodium Chloride (Normal Saline 0.9%) 1,000 mls @ 500 mls/hr IV BOLUS ONE Stop: 08/25/18 10:48 Last Infusion: 08/25/18 11:55 Dose: 0 mls/hr Admin: 08/25/18 09:14 Dose: 500 mls/hr Azithromycin 500 mg/ Dextrose 250 mls @ 250 mls/hr IV NOW ONE Stop: 08/25/18 08:56 Last Infusion: 08/25/18 11:27 Dose: 0 mls/hr Admin: 08/25/18 10:08 Dose: 250 mls/hr Ceftriaxone Sodium/Dextrose (Rocephin) 2 gm in 50 mls @ 100 mls/hr IV NOW ONE Stop: 08/25/18 09:44 Last Infusion: 08/25/18 10:08 Dose: 0 mls/hr Admin: 08/25/18 09:19 Dose: 100 mls/hr Sodium Chloride (Normal Saline 0.9%) 1,000 mls @ 70 mls/hr IV CONT ABEL Last Admin: 08/25/18 14:50 Dose: 70 mls/hr Vancomycin HCl/Dextrose (Vancomycin) 750 mg in 150 mls @ 150 mls/hr IV NOW ONE Stop: 08/25/18 14:43 Last Admin: 08/25/18 14:50 Dose: 150 mls/hr Ceftriaxone Sodium/Dextrose (Rocephin) 1 gm in 50 mls @ 100 mls/hr IV Q24H [facility] Last Admin: 08/28/18 08:24 Dose: 100 mls/hr Infusion: 08/27/18 09:07 Dose: 100 mls/hr Admin: 08/27/18 08:37 Dose: 100 mls/hr Infusion: 08/26/18 08:50 Dose: 0 mls/hr Admin: 08/26/18 08:20 Dose: 100 mls/hr Doxycycline Hyclate 100 mg/ (Sodium Chloride) 100 mls @ 100 mls/hr IV Q12H [facility] Last Infusion: 08/28/18 04:09 Dose: 0 mls/hr Admin: 08/28/18 02:49 Dose: 100 mls/hr Infusion: 08/27/18 14:40 Dose: 0 mls/hr Admin: 08/27/18 13:39 Dose: 100 mls/hr Infusion: 08/27/18 03:10 Dose: 0 mls/hr Admin: 08/27/18 02:10 Dose: 100 mls/hr Infusion: 08/26/18 16:29 Dose: 0 mls/hr Admin: 08/26/18 14:09 Dose: 100 mls/hr Infusion: 08/26/18 03:30 Dose: 0 mls/hr Admin: 08/26/18 02:31 Dose: 100 mls/hr Infusion: 08/25/18 19:32 Dose: 0 mls/hr Admin: 08/25/18 16:34 Dose: 100 mls/hr Insulin Aspart (Novolog Flexpen) 0 unit SUBCUT ACHS [facility]; Protocol Last Admin: 08/28/18 08:11 Dose: Not Given Admin: 08/27/18 21:41 Dose: Not Given Admin: 08/27/18 17:01 Dose: Not Given Admin: 08/27/18 12:27 Dose: Not Given Admin: 08/27/18 08:40 Dose: 1 unit Admin: 08/26/18 20:38 Dose: Not Given Admin: 08/26/18 16:34 Dose: 3 unit Admin: 08/26/18 11:36 Dose: 2 unit Admin: 08/26/18 08:09 Dose: Admin: 08/25/18 20:53 Dose: 1 unit Admin: 08/25/18 17:07 Dose: 3 unit Magnesium Oxide (Mag Ox) 400 mg PO NOW ONE Stop: 08/26/18 21:43 Last Admin: 08/25/18 22:02 Dose: 400 mg Metformin HCl (Glucophage) 500 mg PO BID [facility] Last Admin: 08/28/18 08:14 Dose: 500 mg Admin: 08/27/18 21:44 Dose: 500 mg Admin: 08/27/18 08:30 Dose: 500 mg Admin: 08/26/18 20:44 Dose: 500 mg Admin: 08/26/18 08:08 Dose: 500 mg Admin: 08/25/18 20:55 Dose: 500 mg Metoprolol Tartrate (Lopressor) 25 mg PO BID [facility] Last Admin: 08/28/18 09:18 Dose: 25 mg Admin: 08/27/18 21:44 Dose: 25 mg Admin: 08/27/18 08:30 Dose: 25 mg Admin: 08/26/18 20:44 Dose: 25 mg Admin: 08/26/18 08:08 Dose: 25 mg Admin: 08/25/18 20:55 Dose: 25 mg Morphine Sulfate (Morphine) 2 mg IV NOW ONE Stop: 08/25/18 21:43 Last Admin: 08/25/18 22:15 Dose: 2 mg Famciclovir 250 Mg 250 mg PO Q12H [facility] Last Admin: 08/28/18 02:49 Dose: 250 mg Admin: 08/27/18 15:46 Dose: 250 mg Admin: 08/27/18 02:10 Dose: 250 mg Admin: 08/26/18 16:34 Dose: 250 mg Admin: 08/26/18 05:57 Dose: Admin: 08/25/18 14:55 Dose: Griseofulvin (Microsize 500 Mg) 500 mg PO BID [facility] Last Admin: 08/28/18 08:15 Dose: 500 mg Admin: 08/27/18 21:43 Dose: 500 mg Admin: 08/27/18 08:32 Dose: 500 mg Admin: 08/26/18 20:43 Dose: 500 mg Admin: 08/26/18 08:20 Dose: Admin: 08/25/18 18:17 Dose: Nystatin (Mycostatin Susp) 500,000 unit PO BID [facility] Last Admin: 08/28/18 08:14 Dose: 500,000 unit Admin: 08/27/18 21:43 Dose: 500,000 unit Admin: 08/27/18 12:23 Dose: 500,000 unit Ondansetron HCl (Zofran) 4 mg IV NOW ONE Stop: 08/25/18 08:30 Last Admin: 08/25/18 08:30 Dose: 4 mg Pantoprazole Sodium (Protonix) 20 mg PO 0600 [facility] Last Admin: 08/28/18 05:53 Dose: 20 mg Admin: 08/27/18 06:27 Dose: 20 mg Admin: 08/26/18 05:59 Dose: 20 mg Pantoprazole Sodium (Protonix) 20 mg PO BEDTIME [facility] Last Admin: 08/27/18 21:44 Dose: 20 mg Admin: 08/26/18 20:44 Dose: 20 mg Admin: 08/25/18 20:56 Dose: 20 mg Polyethylene Glycol (Miralax) 34 gm PO NOW ONE Stop: 08/26/18 07:41 Last Admin: 08/26/18 08:08 Dose: 34 gm Potassium Chloride (Klor-Con M20) 20 meq PO TID [facility] Last Admin: 08/28/18 08:12 Dose: 20 meq Admin: 08/27/18 21:44 Dose: 20 meq Admin: 08/27/18 15:47 Dose: 20 meq Admin: 08/27/18 08:30 Dose: 20 meq Admin: 08/26/18 20:44 Dose: 20 meq Admin: 08/26/18 14:10 Dose: 20 meq Admin: 08/26/18 08:20 Dose: 20 meq Admin: 08/25/18 20:56 Dose: 20 meq Admin: 08/25/18 14:56 Dose: 20 meq Pregabalin (Lyrica) 75 mg PO BID [facility] Last Admin: 08/28/18 08:14 Dose: 75 mg Admin: 08/27/18 21:44 Dose: 75 mg Admin: 08/27/18 08:34 Dose: 75 mg Admin: 08/26/18 20:44 Dose: 75 mg Admin: 08/26/18 08:08 Dose: 75 mg Admin: 08/25/18 20:56 Dose: 75 mg Admin: 08/25/18 14:56 Dose: 75 mg Simethicone (Mylicon) 80 mg PO BID [facility] Last Admin: 08/28/18 08:14 Dose: 80 mg Admin: 08/27/18 21:44 Dose: 80 mg Admin: 08/27/18 08:35 Dose: 80 mg Admin: 08/26/18 20:44 Dose: 80 mg Admin: 08/26/18 08:08 Dose: 80 mg Sodium Chloride (Normal Saline 0.9% Flush) 10 ml IV BID [facility] Last Admin: 08/28/18 09:19 Dose: 10 ml Admin: 08/27/18 21:43 Dose: 10 ml Admin: 08/27/18 08:35 Dose: 10 ml Admin: 08/26/18 20:44 Dose: 10 ml Admin: 08/26/18 09:32 Dose: 10 ml Admin: 08/25/18 20:57 Dose: 10 ml Sodium Chloride (Normal Saline 0.9% Flush) 10 ml IV PRN PRN PRN Reason: Flush Last Admin: 08/27/18 02:11 Dose: 10 ml Sucralfate (Carafate) 1 gm PO ACHS [facility] Last Admin: 08/28/18 08:13 Dose: 1 gm Admin: 08/27/18 21:44 Dose: 1 gm Admin: 08/27/18 17:02 Dose: 1 gm Admin: 08/27/18 12:29 Dose: 1 gm Admin: 08/27/18 08:31 Dose: 1 gm Admin: 08/26/18 20:44 Dose: 1 gm Admin: 08/26/18 16:34 Dose: 1 gm Admin: 08/26/18 11:36 Dose: 1 gm Admin: 08/26/18 08:08 Dose: 1 gm Admin: 08/25/18 20:56 Dose: 1 gm Admin: 08/25/18 16:21 Dose: 1 gm Warfarin Sodium (Coumadin) 1 mg PO [id number] [facility] Last Admin: 08/26/18 16:34 Dose: 1 mg Warfarin Sodium (Coumadin) 2.5 mg PO 1700 [facility] Last Admin: 08/27/18 17:02 Dose: 2.5 mg Admin: 08/26/18 16:34 Dose: 2.5 mg Admin: 08/25/18 18:16 Dose: 2.5 mg Vital Signs - 8 hr 08/25/18 08:27 08/25/18 09:29 08/25/18 09:43 Temperature 100.6 F H 100.2 F H 102.4 F H Pulse Rate 115 H 120 H Respiratory Rate 18 38 H Blood Pressure 136/72 Blood Pressure [Left Arm] 133/72 Pulse Oximetry 88 L 97 MDM - Fever Medical Records Attestation: I reviewed the patient's medical records. Lab Data Attestation: I reviewed the patient's lab results. Result diagrams: 08/28/18 07:33 08/28/18 07:33 Lab Results 08/25/18 08/25/18 08/25/18 Range/Units 09:00 09:05 09:05 WBC 4.9 (4.5-11.0) X10^3/uL RBC 3.66 L (4.5-5.9) X10^6/uL Hgb 11.7 L (13.5-17.5) g/dL Hct 34.2 L (41-53) % MCV 93.4 (80-100) fL MCH 31.8 (26-34) PG MCHC 34.1 (30-36) % RDW 15.8 H (11.6-14.8) % Plt Count 165 (150-400) X10^3/uL Neut % (Auto) 82.5 H (50-75) % Lymph % (Auto) 10.8 L (25-40) % [place] % (Auto) 6.1 (3-14) % Eos % (Auto) 0.3 L (2-4) % Baso % (Auto) 0.3 (0-2) % Neut # (Auto) 4000 (7110-2480) /uL PT (10.1-12.7) SECONDS INR (0.9-1.3) ABG pH (7.35-7.45) ABG pCO2 (35-45) mmHg ABG pO2 (80-100) mmHg ABG HCO3 (22-26) mmol/L ABG Total CO2 (21-31) mmol/L ABG O2 Saturation (95-100) % ABG Base Excess (-2-2) mmol/L FiO2 Sodium (137-145) mmol/L Potassium (3.4-5.1) mmol/L Chloride (98-107) mmol/L Carbon Dioxide (22-32) mmol/L BUN (9-20) mg/dL Creatinine (0.66-1.25) mg/dL Estimated GFR (>60) mL/min BUN/Creatinine Ratio (6-22) Glucose (80-110) mg/dL Lactate (0.7-2.1) mmol/L Calcium (8.4-10.2) mg/dL Phosphorus (2.3-3.7) mg/dL Magnesium (1.6-2.3) mg/dL Total Bilirubin (0.2-1.3) mg/dL AST (17-59) IU/L ALT (21-72) IU/L Alkaline Phosphatase (38-126) U/L B-Natriuretic Peptide (<100) Total Protein (6.3-8.2) g/dL Albumin (3.5-5.0) g/dL Globulin (1.7-4.1) g/dL Albumin/Globulin Ratio (1.0-2.8) Procalcitonin 0.25 (<0.5) ng/mL Urine Color Yellow Urine Appearance Clear Urine pH 7.0 (4.5-8.0) Ur Specific Oriental 1.015 (1.000-1.035) Urine Protein 1+ H (Negative) Urine Glucose (UA) Negative (Normal) g/dL Urine Ketones Negative (NEGATIVE) Urine Occult Blood 2+ H (Negative) Urine Nitrate Negative (Negative) Urine Bilirubin Negative (NEGATIVE) Urine Urobilinogen 0.2 (0.2) E.U./dL Ur Leukocyte Esterase Negative (NEGATIVE) Urine RBC 5-10/hpf H (0-5/HPF) Urine WBC None seen (0-5/HPF) Urine Bacteria None seen (None) Ur Culture Indicated? Cult not indicated Micro UA Comment Not Reportable Influenza A & B (PCR) (Negative) 08/25/18 08/25/18 08/25/18 Range/Units 09:05 09:05 09:05 WBC (4.5-11.0) X10^3/uL RBC (4.5-5.9) X10^6/uL Hgb (13.5-17.5) g/dL Hct (41-53) % MCV (80-100) fL MCH (26-34) PG MCHC (30-36) % RDW (11.6-14.8) % Plt Count (150-400) X10^3/uL Neut % (Auto) (50-75) % Lymph % (Auto) (25-40) % Barnwell % (Auto) (3-14) % Eos % (Auto) (2-4) % Baso % (Auto) (0-2) % Neut # (Auto) (7733-8696) /uL PT (10.1-12.7) SECONDS INR (0.9-1.3) ABG pH (7.35-7.45) ABG pCO2 (35-45) mmHg ABG pO2 (80-100) mmHg ABG HCO3 (22-26) mmol/L ABG Total CO2 (21-31) mmol/L ABG O2 Saturation (95-100) % ABG Base Excess (-2-2) mmol/L FiO2 Sodium 137 (137-145) mmol/L Potassium 4.0 (3.4-5.1) mmol/L Chloride 98 (98-107) mmol/L Carbon Dioxide 27 (22-32) mmol/L BUN 22 H (9-20) mg/dL Creatinine 1.20 (0.66-1.25) mg/dL Estimated GFR 58.7 L (>60) mL/min BUN/Creatinine Ratio 18.3 (6-22) Glucose 162 H (80-110) mg/dL Lactate 1.0 (0.7-2.1) mmol/L Calcium 8.9 (8.4-10.2) mg/dL Phosphorus (2.3-3.7) mg/dL Magnesium (1.6-2.3) mg/dL Total Bilirubin 0.3 (0.2-1.3) mg/dL AST 15 L (17-59) IU/L ALT 21 (21-72) IU/L Alkaline Phosphatase 61 (38-126) U/L B-Natriuretic Peptide < 100.0 (<100) Total Protein 7.4 (6.3-8.2) g/dL Albumin 3.8 (3.5-5.0) g/dL Globulin 3.6 (1.7-4.1) g/dL Albumin/Globulin Ratio 1.1 (1.0-2.8) Procalcitonin (<0.5) ng/mL Urine Color Urine Appearance Urine pH (4.5-8.0) Ur Specific Oriental (1.000-1.035) Urine Protein (Negative) Urine Glucose (UA) (Normal) g/dL Urine Ketones (NEGATIVE) Urine Occult Blood (Negative) Urine Nitrate (Negative) Urine Bilirubin (NEGATIVE) Urine Urobilinogen (0.2) E.U./dL Ur Leukocyte Esterase (NEGATIVE) Urine RBC (0-5/HPF) Urine WBC (0-5/HPF) Urine Bacteria (None) Ur Culture Indicated? Micro UA Comment Influenza A & B (PCR) (Negative) 08/25/18 08/25/18 08/25/18 Range/Units 09:05 10:00 10:32 WBC (4.5-11.0) X10^3/uL RBC (4.5-5.9) X10^6/uL Hgb (13.5-17.5) g/dL Hct (41-53) % MCV (80-100) fL MCH (26-34) PG MCHC (30-36) % RDW (11.6-14.8) % Plt Count (150-400) X10^3/uL Neut % (Auto) (50-75) % Lymph % (Auto) (25-40) % [place] % (Auto) (3-14) % Eos % (Auto) (2-4) % Baso % (Auto) (0-2) % Neut # (Auto) (4002-6040) /uL PT (10.1-12.7) SECONDS INR (0.9-1.3) ABG pH 7.43 (7.35-7.45) ABG pCO2 33.3 L (35-45) mmHg ABG pO2 79 L (80-100) mmHg ABG HCO3 22 (22-26) mmol/L ABG Total CO2 23 (21-31) mmol/L ABG O2 Saturation 96 (95-100) % ABG Base Excess -2.0 (-2-2) mmol/L FiO2 24 Sodium (137-145) mmol/L Potassium (3.4-5.1) mmol/L Chloride (98-107) mmol/L Carbon Dioxide (22-32) mmol/L BUN (9-20) mg/dL Creatinine (0.66-1.25) mg/dL Estimated GFR (>60) mL/min BUN/Creatinine Ratio (6-22) Glucose (80-110) mg/dL Lactate (0.7-2.1) mmol/L Calcium (8.4-10.2) mg/dL Phosphorus 1.8 L (2.3-3.7) mg/dL Magnesium 1.7 (1.6-2.3) mg/dL Total Bilirubin (0.2-1.3) mg/dL AST (17-59) IU/L ALT (21-72) IU/L Alkaline Phosphatase (38-126) U/L B-Natriuretic Peptide (<100) Total Protein (6.3-8.2) g/dL Albumin (3.5-5.0) g/dL Globulin (1.7-4.1) g/dL Albumin/Globulin Ratio (1.0-2.8) Procalcitonin (<0.5) ng/mL Urine Color Urine Appearance Urine pH (4.5-8.0) Ur Specific Oriental (1.000-1.035) Urine Protein (Negative) Urine Glucose (UA) (Normal) g/dL Urine Ketones (NEGATIVE) Urine Occult Blood (Negative) Urine Nitrate (Negative) Urine Bilirubin (NEGATIVE) Urine Urobilinogen (0.2) E.U./dL Ur Leukocyte Esterase (NEGATIVE) Urine RBC (0-5/HPF) Urine WBC (0-5/HPF) Urine Bacteria (None) Ur Culture Indicated? Micro UA Comment Influenza A & B (PCR) Negative (Negative) 08/25/18 08/26/18 08/26/18 Range/Units 17:34 06:20 06:20 WBC 4.2 L (4.5-11.0) X10^3/uL RBC 3.47 L (4.5-5.9) X10^6/uL Hgb 11.1 L (13.5-17.5) g/dL Hct 33.0 L (41-53) % MCV 95.0 (80-100) fL MCH 31.9 (26-34) PG MCHC 33.5 (30-36) % RDW 15.9 H (11.6-14.8) % Plt Count 161 (150-400) X10^3/uL Neut % (Auto) 76.5 H (50-75) % Lymph % (Auto) 12.2 L (25-40) % [place] % (Auto) 8.5 (3-14) % Eos % (Auto) 0.5 L (2-4) % Baso % (Auto) 2.3 H (0-2) % Neut # (Auto) 3200 (7639-2637) /uL PT 20.3 H (10.1-12.7) SECONDS INR 1.8 H (0.9-1.3) ABG pH (7.35-7.45) ABG pCO2 (35-45) mmHg ABG pO2 (80-100) mmHg ABG HCO3 (22-26) mmol/L ABG Total CO2 (21-31) mmol/L ABG O2 Saturation (95-100) % ABG Base Excess (-2-2) mmol/L FiO2 Sodium 138 (137-145) mmol/L Potassium 4.1 (3.4-5.1) mmol/L Chloride 98 (98-107) mmol/L Carbon Dioxide 27 (22-32) mmol/L BUN 16 (9-20) mg/dL Creatinine 1.30 H (0.66-1.25) mg/dL Estimated GFR 53.5 L (>60) mL/min BUN/Creatinine Ratio 12.3 (6-22) Glucose 106 (80-110) mg/dL Lactate (0.7-2.1) mmol/L Calcium 8.6 (8.4-10.2) mg/dL Phosphorus (2.3-3.7) mg/dL Magnesium (1.6-2.3) mg/dL Total Bilirubin 0.2 (0.2-1.3) mg/dL AST 16 L (17-59) IU/L ALT 17 L (21-72) IU/L Alkaline Phosphatase 58 (38-126) U/L B-Natriuretic Peptide (<100) Total Protein 7.3 (6.3-8.2) g/dL Albumin 3.7 (3.5-5.0) g/dL Globulin 3.6 (1.7-4.1) g/dL Albumin/Globulin Ratio 1.0 (1.0-2.8) Procalcitonin (<0.5) ng/mL Urine Color Urine Appearance Urine pH (4.5-8.0) Ur Specific [place] (1.000-1.035) Urine Protein (Negative) Urine Glucose (UA) (Normal) g/dL Urine Ketones (NEGATIVE) Urine Occult Blood (Negative) Urine Nitrate (Negative) Urine Bilirubin (NEGATIVE) Urine Urobilinogen (0.2) E.U./dL Ur Leukocyte Esterase (NEGATIVE) Urine RBC (0-5/HPF) Urine WBC (0-5/HPF) Urine Bacteria (None) Ur Culture Indicated? Micro UA Comment Influenza A & B (PCR) (Negative) 08/26/18 08/26/18 08/26/18 Range/Units 06:20 06:20 08:55 WBC (4.5-11.0) X10^3/uL RBC (4.5-5.9) X10^6/uL Hgb (13.5-17.5) g/dL Hct (41-53) % MCV (80-100) fL MCH (26-34) PG MCHC (30-36) % RDW (11.6-14.8) % Plt Count (150-400) X10^3/uL Neut % (Auto) (50-75) % Lymph % (Auto) (25-40) % [place] % (Auto) (3-14) % Eos % (Auto) (2-4) % Baso % (Auto) (0-2) % Neut # (Auto) (4321-6121) /uL PT 22.3 H (10.1-12.7) SECONDS INR 1.9 H (0.9-1.3) ABG pH 7.45 (7.35-7.45) ABG pCO2 31.8 L (35-45) mmHg ABG pO2 75 L (80-100) mmHg ABG HCO3 22 (22-26) mmol/L ABG Total CO2 23 (21-31) mmol/L ABG O2 Saturation 96 (95-100) % ABG Base Excess -2.0 (-2-2) mmol/L FiO2 28 Sodium (137-145) mmol/L Potassium (3.4-5.1) mmol/L Chloride (98-107) mmol/L Carbon Dioxide (22-32) mmol/L BUN (9-20) mg/dL Creatinine (0.66-1.25) mg/dL Estimated GFR (>60) mL/min BUN/Creatinine Ratio (6-22) Glucose (80-110) mg/dL Lactate (0.7-2.1) mmol/L Calcium (8.4-10.2) mg/dL Phosphorus 3.0 D (2.3-3.7) mg/dL Magnesium (1.6-2.3) mg/dL Total Bilirubin (0.2-1.3) mg/dL AST (17-59) IU/L ALT (21-72) IU/L Alkaline Phosphatase (38-126) U/L B-Natriuretic Peptide (<100) Total Protein (6.3-8.2) g/dL Albumin (3.5-5.0) g/dL Globulin (1.7-4.1) g/dL Albumin/Globulin Ratio (1.0-2.8) Procalcitonin (<0.5) ng/mL Urine Color Urine Appearance Urine pH (4.5-8.0) Ur Specific [place] (1.000-1.035) Urine Protein (Negative) Urine Glucose (UA) (Normal) g/dL Urine Ketones (NEGATIVE) Urine Occult Blood (Negative) Urine Nitrate (Negative) Urine Bilirubin (NEGATIVE) Urine Urobilinogen (0.2) E.U./dL Ur Leukocyte Esterase (NEGATIVE) Urine RBC (0-5/HPF) Urine WBC (0-5/HPF) Urine Bacteria (None) Ur Culture Indicated? Micro UA Comment Influenza A & B (PCR) (Negative) 08/27/18 08/27/18 08/27/18 Range/Units 07:30 07:30 09:14 WBC 2.5 L (4.5-11.0) X10^3/uL RBC 3.06 L (4.5-5.9) X10^6/uL Hgb 9.8 L (13.5-17.5) g/dL Hct 28.7 L (41-53) % MCV 93.7 (80-100) fL MCH 32.0 (26-34) PG MCHC 34.2 (30-36) % RDW 15.7 H (11.6-14.8) % Plt Count 150 (150-400) X10^3/uL Neut % (Auto) 64.5 (50-75) % Lymph % (Auto) 21.0 L (25-40) % [place] % (Auto) 12.6 (3-14) % Eos % (Auto) 0.4 L (2-4) % Baso % (Auto) 1.5 (0-2) % Neut # (Auto) 1600 (5503-1303) /uL PT 22.9 H (10.1-12.7) SECONDS INR 2.0 H (0.9-1.3) ABG pH (7.35-7.45) ABG pCO2 (35-45) mmHg ABG pO2 (80-100) mmHg ABG HCO3 (22-26) mmol/L ABG Total CO2 (21-31) mmol/L ABG O2 Saturation (95-100) % ABG Base Excess (-2-2) mmol/L FiO2 Sodium 138 (137-145) mmol/L Potassium 4.1 (3.4-5.1) mmol/L Chloride 100 (98-107) mmol/L Carbon Dioxide 26 (22-32) mmol/L BUN 21 H (9-20) mg/dL Creatinine 1.10 (0.66-1.25) mg/dL Estimated GFR > 60.0 (>60) mL/min BUN/Creatinine Ratio 19.1 (6-22) Glucose 150 H (80-110) mg/dL Lactate (0.7-2.1) mmol/L Calcium 8.8 (8.4-10.2) mg/dL Phosphorus (2.3-3.7) mg/dL Magnesium (1.6-2.3) mg/dL Total Bilirubin 0.1 L (0.2-1.3) mg/dL AST 18 (17-59) IU/L ALT 13 L (21-72) IU/L Alkaline Phosphatase 55 (38-126) U/L B-Natriuretic Peptide (<100) Total Protein 6.7 (6.3-8.2) g/dL Albumin 3.4 L (3.5-5.0) g/dL Globulin 3.3 (1.7-4.1) g/dL Albumin/Globulin Ratio 1.0 (1.0-2.8) Procalcitonin (<0.5) ng/mL Urine Color Urine Appearance Urine pH (4.5-8.0) Ur Specific [place] (1.000-1.035) Urine Protein (Negative) Urine Glucose (UA) (Normal) g/dL Urine Ketones (NEGATIVE) Urine Occult Blood (Negative) Urine Nitrate (Negative) Urine Bilirubin (NEGATIVE) Urine Urobilinogen (0.2) E.U./dL Ur Leukocyte Esterase (NEGATIVE) Urine RBC (0-5/HPF) Urine WBC (0-5/HPF) Urine Bacteria (None) Ur Culture Indicated? Micro UA Comment Influenza A & B (PCR) (Negative) 08/28/18 08/28/18 08/28/18 Range/Units 07:33 07:33 07:33 WBC 2.6 L (4.5-11.0) X10^3/uL RBC 3.28 L (4.5-5.9) X10^6/uL Hgb 10.4 L (13.5-17.5) g/dL Hct 30.5 L (41-53) % MCV 93.1 (80-100) fL MCH 31.6 (26-34) PG MCHC 33.9 (30-36) % RDW 15.8 H (11.6-14.8) % Plt Count 166 (150-400) X10^3/uL Neut % (Auto) 72.1 (50-75) % Lymph % (Auto) 19.7 L (25-40) % [place] % (Auto) 6.4 (3-14) % Eos % (Auto) 0.3 L (2-4) % Baso % (Auto) 1.5 (0-2) % Neut # (Auto) 1900 (7120-7586) /uL PT 26.8 H (10.1-12.7) SECONDS INR 2.3 H (0.9-1.3) ABG pH (7.35-7.45) ABG pCO2 (35-45) mmHg ABG pO2 (80-100) mmHg ABG HCO3 (22-26) mmol/L ABG Total CO2 (21-31) mmol/L ABG O2 Saturation (95-100) % ABG Base Excess (-2-2) mmol/L FiO2 Sodium 139 (137-145) mmol/L Potassium 4.3 (3.4-5.1) mmol/L Chloride 102 (98-107) mmol/L Carbon Dioxide 24 (22-32) mmol/L BUN 20 (9-20) mg/dL Creatinine 1.10 (0.66-1.25) mg/dL Estimated GFR > 60.0 (>60) mL/min BUN/Creatinine Ratio 18.2 (6-22) Glucose 176 H (80-110) mg/dL Lactate (0.7-2.1) mmol/L Calcium 9.1 (8.4-10.2) mg/dL Phosphorus (2.3-3.7) mg/dL Magnesium (1.6-2.3) mg/dL Total Bilirubin 0.1 L (0.2-1.3) mg/dL AST 21 (17-59) IU/L ALT 16 L (21-72) IU/L Alkaline Phosphatase 53 (38-126) U/L B-Natriuretic Peptide (<100) Total Protein 6.8 (6.3-8.2) g/dL Albumin 3.5 (3.5-5.0) g/dL Globulin 3.3 (1.7-4.1) g/dL Albumin/Globulin Ratio 1.1 (1.0-2.8) Procalcitonin (<0.5) ng/mL Urine Color Urine Appearance Urine pH (4.5-8.0) Ur Specific [place] (1.000-1.035) Urine Protein (Negative) Urine Glucose (UA) (Normal) g/dL Urine Ketones (NEGATIVE) Urine Occult Blood (Negative) Urine Nitrate (Negative) Urine Bilirubin (NEGATIVE) Urine Urobilinogen (0.2) E.U./dL Ur Leukocyte Esterase (NEGATIVE) Urine RBC (0-5/HPF) Urine WBC (0-5/HPF) Urine Bacteria (None) Ur Culture Indicated? Micro UA Comment Influenza A & B (PCR) (Negative) Point of Care Testing Glucose POC 163 Urine Dip Bedside Urine Glucose Negative Bedside Urine Bilirubin - Negative Bedside Urine Ketone - Negative Urine Specific [place] 1.020 Bedside Urine Occult Blood + Bedside Urine pH 6.5 Bedside Urine Protein + 30 Bedside Urine Urobilinogen - Negative Bedside Urine Nitrite - Negative Bedside Urine Leukocytes - Negative Esterase ECG Data Interpretation: Twelve lead EKG performed on August 25, 2018 at 9:15 a.m.: Regular ventricular rhythm with a rate of 109 beats per minute ID interval 152 millisecond QRS duration 96 milliseconds QTC interval 386 millisecond Normal axis No ectopy In summary, sinus tachycardia; no STEMI; possible inferior DC, old; abnormal EKG as interpreted by the ED MD. Discharge Plan Departure Patient Disposition: Admitted As Inpatient Clinical Impression: Acute dyspnea, Fever, Pneumonia Discharge Date/Time: 08/25/18 12:20 Interventions: ED Discharge Assessment Last Done: 08/25/18 12:04 Admit Date/Time: 08/25/18 12:08 Admit Provider: Keely Naidu
[2018-08-25 09:11] LABS: Bacteria Urine None Seen; WBC Urine None Seen (0-5/HPF)
[2018-08-25 09:13] LABS: Appearance Urine UA CLEAR; Bilirubin Urine UA NEGATIVE (NEGATIVE); Color Urine UA YELLOW; Glucose Urine UA NEGATIVE (Normal); Ketones Urine UA NEGATIVE (NEGATIVE); Leukocyte Esterase Urine UA NEGATIVE (NEGATIVE); Nitrite Urine UA NEGATIVE (Negative); Occult Blood Urine UA 2+ (Negative); Protein Urine UA 1+ (Negative); Specific Gravity Urine UA 1.015 (1.000-1.035); Urobilinogen Urine UA 0.2 E.U./dL (0.2)
[2018-08-25] MEDS: SODIUM CHLORIDE 0.9% 1,000 ML 500 ML IV (09:14)
[2018-08-25] MEDS: CEFTRIAXONE 2 GM/50 ML FROZ.PIGGY IV (09:19)
[2018-08-25 09:20] LABS: Add Manual Diff / Slide Review NO; Basophils Percent Auto 0.3 % (0-2); Eosinophils Percent Auto 0.3 % (2-4); Hematocrit 34.2 % (41-53); Hemoglobin 11.7 g/dL (13.5-17.5); Lymphocytes Percent Auto 10.8 % (25-40); Mean Corpuscular HGB Conc 34.1 % (30-36); Mean Corpuscular Hemoglobin 31.8 PG (26-34); Mean Corpuscular Volume 93.4 fL (80-100); Monocytes Percent Auto 6.1 % (3-14); Neutrophils Absolute Auto 4000 /uL (3000-5900); Neutrophils Percent Auto 82.5 % (50-75); Platelet Count 165 X10^3/uL (150-400); Red Blood Cell Count 3.66 X10^6/uL (4.5-5.9); Red Cell Distribution Width 15.8 % (11.6-14.8); White Blood Cell Count 4.9 X10^3/uL (4.5-11.0)
[2018-08-25 09:24] LABS: Culture Indicated Urine Cult Not Indicated; RBC Urine 5-10/HPF (0-5/HPF)
[2018-08-25] MEDS: ACETAMINOPHEN 325 MG TABLET 975 MG PO (09:29)
[2018-08-25 09:31] LABS: Alanine Aminotransferase 21 IU/L (21-72); Albumin 3.8 g/dL (3.5-5.0); Albumin Globulin Ratio 1.1 (1.0-2.8); Alkaline Phosphatase 61 U/L (38-126); Aspartate Aminotransferase 15 IU/L (17-59); BUN Creatinine Ratio 18.3 (6-22); Bilirubin Total 0.3 mg/dL (0.2-1.3); Blood Urea Nitrogen 22 mg/dL (9-20); Calcium 8.9 mg/dL (8.4-10.2); Carbon Dioxide 27 mmol/L (22-32); Chloride 98 mmol/L (98-107); Estimated Glomerular Filt Rate 58.7 mL/min (>60); Globulin 3.6 g/dL (1.7-4.1); Glucose 162 mg/dL (80-110); HEMOLYSIS < 15 (0-50); Sodium 137 mmol/L (137-145); Total Protein 7.4 g/dL (6.3-8.2)
[2018-08-25 09:40] LABS: B Type Natriuretic Peptide < 100.0 (<100)
[2018-08-25 09:47] LABS: Procalcitonin 0.25 ng/mL (<0.5)
[2018-08-25] MEDS: AZITHROMYCIN 500 MG in DEXTROSE 5% IN WATER 250 ML IV (10:08)
[2018-08-25] MEDS: HYDROCORTISONE 100 MG/2 ML VIAL IV (10:09)
--- NOTE | 2018-08-25 10:12 | DI.CT.S_ITS ---
PROCEDURE: CT ANGIO CHEST INDICATIONS: dyspnea, tachycardia, cancer pt TECHNIQUE: After the administration of intravenous contrast, 2 mm thick sections acquired from the pulmonary apices to the posterior costophrenic angles. 3-dimensional maximum intensity projection (MIP) coronal and sagittal reformats were then acquired through the thorax. For radiation dose reduction, the following was used: automated exposure control, adjustment of mA and/or kV according to patient size. COMPARISON: [facility], CR, XR CHEST 1V, 08/25/2018, 8:35. [facility], CT, PE STUDY (CTA CHEST), 04/03/2017, 10:45. FINDINGS: Image quality: Excellent. Pulmonary arteries: Pulmonary arteries are normal in size, and demonstrate no intraluminal filling defects to suggest central pulmonary embolism. Lungs and pleura: No acute consolidation. Scattered subsegmental atelectasis and/or scarring No pleural effusions or pneumothorax. Central and peripheral airways are patent. Mediastinum: Heart size is normal, without pericardial effusion. Coronary artery calcifications are present. No mediastinal or hilar adenopathy. Thoracic aorta is normal in caliber and enhancement. Thoracic aorta appears tortuous and there are scattered atheromatous calcifications. Esophagus is normal in caliber, and there is a moderate hiatal hernia. Bones and chest wall: No suspicious bony lesion Ribs and thoracic spine appear intact throughout. Thyroid gland negative. No axillary or supraclavicular adenopathy. Previously described left hepatic hemangioma appears grossly unchanged, with some peripheral nodular enhancement as expected. IMPRESSION: No pulmonary embolism. No acute consolidation. Scattered subsegmental atelectasis and/or scarring. Moderate hiatal hernia. Coronary artery disease. Left hepatic hemangioma as before. Dictated by: Herb Ford M.D. on 08/25/2018 at 10:32 Approved by: Herb Ford M.D. on 08/25/2018 at 10:40
[2018-08-25 10:24] LABS: Influenza A and B by PCR Rapid Negative (Negative)
[2018-08-25 10:48] LABS: HCO3 ABG 22 mmol/L (22-26); Oxygen Saturation ABG 96 % (95-100); PCO2 ABG 33.3 mmHg (35-45); PO2 ABG 79 mmHg (80-100); TCO2 ABG 23 mmol/L (21-31); pH ABG 7.43 (7.35-7.45)
[2018-08-25 10:49] LABS: Fractionated Inspired Oxygen 24
[2018-08-25 12:48] LABS: Magnesium 1.7 mg/dL (1.6-2.3); Phosphorous 1.8 mg/dL (2.3-3.7)
--- NOTE | 2018-08-25 13:31 | P.PN_ITS ---
Subjective Date Patient Seen: 08/25/18 Time Patient Seen: 13:24 Interval history: THIS IS A VERY PLEASANT 78 YO MALE WITH A PAST MEDICAL HX SIGNIFICANT FOR MDS, EXT NEUROPATHY W/O DIABETES, SWEET SYNDROME AND OBESE PATIENT PRESENTED TO THE ED WITH 2 WEEKS HX OF HIGH TEMPERATURE MOSTLY IN THE AM ; HIGHEST THIS AM 104 IN ANY CASE, PATIENT ALSO REPORTED HAVING DEVELOPED SOME SOB AND VOMITING ALSO FOR LAST FEW DAYS REPORT OF RLE SWELLING ALSO RELATED TO US BY SPOUSE AT BEDSIDE - HE DENIED ANY SICK CONTACT; NO RECENT ADMISSION TO HOSPITAL Exam Vital Signs (past 8 hours): - 08/25/18 08:27 08/25/18 09:29 08/25/18 09:43 Temperature 100.6 F H 100.2 F H 102.4 F H Pulse Rate 115 H 120 H Respiratory Rate 18 38 H Blood Pressure 136/72 Blood Pressure [Left Arm] 133/72 Pulse Oximetry 88 L 97 08/25/18 10:30 08/25/18 11:00 08/25/18 11:20 Temperature 99.4 F Pulse Rate 93 H 92 H 90 Respiratory Rate 24 22 27 H Blood Pressure Blood Pressure [Left Arm] 117/57 L 96/39 L 119/62 Pulse Oximetry 95 95 96 08/25/18 11:22 08/25/18 11:34 Temperature 99.4 F 98.7 F Pulse Rate 83 Respiratory Rate 22 Blood Pressure 126/67 Blood Pressure [Left Arm] Pulse Oximetry 97 Oxygen Delivery Method Nasal Cannula Oxygen Flow Rate 1 Objective Labs Result Diagrams: 08/25/18 09:05 08/25/18 09:05 Labs: Laboratory Results - last 24 hr 08/25/18 08/25/18 08/25/18 09:00 09:05 09:05 WBC 4.9 RBC 3.66 L Hgb 11.7 L Hct 34.2 L MCV 93.4 MCH 31.8 MCHC 34.1 RDW 15.8 H Plt Count 165 Neut % (Auto) 82.5 H Lymph % (Auto) 10.8 L [place] % (Auto) 6.1 Eos % (Auto) 0.3 L Baso % (Auto) 0.3 Neut # (Auto) 4000 ABG pH ABG pCO2 ABG pO2 ABG HCO3 ABG Total CO2 ABG O2 Saturation ABG Base Excess FiO2 Sodium Potassium Chloride Carbon Dioxide BUN Creatinine Estimated GFR BUN/Creatinine Ratio Glucose Lactate Calcium Phosphorus Magnesium Total Bilirubin AST ALT Alkaline Phosphatase B-Natriuretic Peptide Total Protein Albumin Globulin Albumin/Globulin Ratio Procalcitonin 0.25 Urine Color Yellow Urine Appearance Clear Urine pH 7.0 Ur Specific [place] 1.015 Urine Protein 1+ H Urine Glucose (UA) Negative Urine Ketones Negative Urine Occult Blood 2+ H Urine Nitrate Negative Urine Bilirubin Negative Urine Urobilinogen 0.2 Ur Leukocyte Esterase Negative Urine RBC 5-10/hpf H Urine WBC None seen Urine Bacteria None seen Ur Culture Indicated? Cult not indicated Micro UA Comment Not Reportable Influenza A & B (PCR) 08/25/18 08/25/18 08/25/18 09:05 09:05 09:05 WBC RBC Hgb Hct MCV MCH MCHC RDW Plt Count Neut % (Auto) Lymph % (Auto) [place] % (Auto) Eos % (Auto) Baso % (Auto) Neut # (Auto) ABG pH ABG pCO2 ABG pO2 ABG HCO3 ABG Total CO2 ABG O2 Saturation ABG Base Excess FiO2 Sodium 137 Potassium 4.0 Chloride 98 Carbon Dioxide 27 BUN 22 H Creatinine 1.20 Estimated GFR 58.7 L BUN/Creatinine Ratio 18.3 Glucose 162 H Lactate 1.0 Calcium 8.9 Phosphorus Magnesium Total Bilirubin 0.3 AST 15 L ALT 21 Alkaline Phosphatase 61 B-Natriuretic Peptide < 100.0 Total Protein 7.4 Albumin 3.8 Globulin 3.6 Albumin/Globulin Ratio 1.1 Procalcitonin Urine Color Urine Appearance Urine pH Ur Specific [place] Urine Protein Urine Glucose (UA) Urine Ketones Urine Occult Blood Urine Nitrate Urine Bilirubin Urine Urobilinogen Ur Leukocyte Esterase Urine RBC Urine WBC Urine Bacteria Ur Culture Indicated? Micro UA Comment Influenza A & B (PCR) 08/25/18 08/25/18 08/25/18 09:05 10:00 10:32 WBC RBC Hgb Hct MCV MCH MCHC RDW Plt Count Neut % (Auto) Lymph % (Auto) [place] % (Auto) Eos % (Auto) Baso % (Auto) Neut # (Auto) ABG pH 7.43 ABG pCO2 33.3 L ABG pO2 79 L ABG HCO3 22 ABG Total CO2 23 ABG O2 Saturation 96 ABG Base Excess -2.0 FiO2 24 Sodium Potassium Chloride Carbon Dioxide BUN Creatinine Estimated GFR BUN/Creatinine Ratio Glucose Lactate Calcium Phosphorus 1.8 L Magnesium 1.7 Total Bilirubin AST ALT Alkaline Phosphatase B-Natriuretic Peptide Total Protein Albumin Globulin Albumin/Globulin Ratio Procalcitonin Urine Color Urine Appearance Urine pH Ur Specific [place] Urine Protein Urine Glucose (UA) Urine Ketones Urine Occult Blood Urine Nitrate Urine Bilirubin Urine Urobilinogen Ur Leukocyte Esterase Urine RBC Urine WBC Urine Bacteria Ur Culture Indicated? Micro UA Comment Influenza A & B (PCR) Negative
--- NOTE | 2018-08-25 13:35 | PM.HP.1 ---
History of Present Illness Date Patient Seen: 08/25/18 Time Patient Seen: 13:35 Chief complaint: Fever Narrative: THIS IS A VERY PLEASANT 78 YO MALE WITH A PAST MEDICAL HX SIGNIFICANT FOR MDS, EXT NEUROPATHY W/O DIABETES, SWEET SYNDROME AND OBESE PATIENT PRESENTED TO THE ED WITH 2 WEEKS HX OF HIGH TEMPERATURE MOSTLY IN THE AM; HIGHEST THIS AM 104 IN ANY CASE, PATIENT ALSO REPORTED HAVING DEVELOPED SOME SOB AT REST AND VOMITING ALSO FOR LAST FEW DAYS REPORT OF RLE SWELLING ALSO RELATED TO US BY SPOUSE AT BEDSIDE - HE DENIED ANY SICK CONTACT; NO RECENT ADMISSION TO HOSPITALS; NO TRIP OUTSIDE OF COUNTRY - NO BLOOD PER RECTUM OR IN URINE - NO DIFF SWALLOWING HOWEVER, STATED THAT SOME OF THE LYMPH NODES AT THE LEFT SIDE OF HIS NECK HAS BEEN SWOLLEN FOR LAST 2-3 DAYS - NO OTHER COMPLAINTS Patient History Medical History Diabetes mellitus, type II (Chronic) Systolic congestive heart failure (Chronic ~2015) Adrenal insufficiency (Chronic Unknown) Arthritis (Chronic Unknown) Sleep apnea (Chronic Unknown) Peripheral neuropathy (Chronic Unknown) History of deep vein thrombosis (Resolved Unknown) Sweet's syndrome (Chronic 2010) Neutropenia (Chronic Unknown) Myelodysplasia (myelodysplastic syndrome) (Chronic Unknown) GERD (gastroesophageal reflux disease) (Chronic Unknown) Congestive heart failure (Chronic) High risk medication use (Chronic 07/27/16) Chronic fatigue (Chronic 11/20/16) Surgical History Vocal cord dysfunction (Resolved 1997) Family & Social History Family History: Reviewed 08/25/18 by Keely Naidu DO Social History: household members spouse Safety & Behavioral: Feels Safe in Current Yes Environment Tobacco & Substance use: Smoking Status Former smoker alcohol intake current alcohol intake frequency holiday/special occasion Substance Use Type does not use Meds Home Medications Medication Instructions Recorded Confirmed Type famciclovir 250 mg PO Q12H #120 tab 01/24/18 08/25/18 Rx Glucose: Test Strips 1 str MISCELLANEOUS DIRECTED 03/04/18 08/25/18 History metoprolol tartrate 25 mg PO BID 03/04/18 08/25/18 History omeprazole 20 mg capsule,delayed 20 mg PO BEDTIME #30 cap 05/27/18 08/25/18 Rx release metformin 500 mg tablet 500 mg PO BID #180 tab 05/30/18 08/25/18 Rx albuterol sulfate 2.5 mg/3 mL 2.5 mg INHALATION Q4H PRN #90 ml 06/10/18 08/25/18 Rx (0.083 %) solution for nebulization potassium chloride [Klor-Con M20] 20 meq PO TID 06/21/18 08/25/18 History acetaminophen 650 mg PO PRN PRN 08/24/18 08/25/18 History amoxicillin-pot clavulanate 1 tab PO Q12H 7 Days #14 tab 08/24/18 08/25/18 Rx [Augmentin] griseofulvin microsize 500 mg PO BID 08/24/18 08/25/18 History furosemide 40 mg PO DAILY 08/25/18 08/25/18 History hydrocortisone 10 mg PO QPM 08/25/18 08/25/18 History hydrocortisone 40 mg PO BID 08/25/18 08/25/18 History warfarin 2.5 mg PO QPM 08/25/18 08/25/18 History warfarin [Coumadin] 1 mg PO MOWEFR 08/25/18 08/25/18 History Allergies Allergy/AdvReac Type Severity Reaction Status Date / Time promethazine [PROMETHAZINE] AdvReac Unknown restlessnes Verified 08/25/18 09:29 s Review of Systems Review of Systems All systems reviewed & are unremarkable except as noted in HPI and below Exam Vital Signs (past 8 hours): - 08/25/18 08:27 08/25/18 09:29 08/25/18 09:43 Temperature 100.6 F H 100.2 F H 102.4 F H Pulse Rate 115 H 120 H Respiratory Rate 18 38 H Blood Pressure 136/72 Blood Pressure [Left Arm] 133/72 Pulse Oximetry 88 L 97 08/25/18 10:30 08/25/18 11:00 08/25/18 11:20 Temperature 99.4 F Pulse Rate 93 H 92 H 90 Respiratory Rate 24 22 27 H Blood Pressure Blood Pressure [Left Arm] 117/57 L 96/39 L 119/62 Pulse Oximetry 95 95 96 08/25/18 11:22 08/25/18 11:34 Temperature 99.4 F 98.7 F Pulse Rate 83 Respiratory Rate 22 Blood Pressure 126/67 Blood Pressure [Left Arm] Pulse Oximetry 97 Oxygen Delivery Method Nasal Cannula Oxygen Flow Rate 1 Narrative Exam Narrative: NO ACUTE DISTRESS. PATIENT IS ALERT ORIENTED X3. VITAL SIGNS STABLE HEAD ATRAUMATIC NORMOCEPHALIC NECK : SUPPLE WITHOUT ADENOPATHY NO CAROTID BRUITS EYE: EOMI, PERRLA, NORMAL CONJUNCTIVA; NO JAUNDICE CHEST: REGULAR RATE. NO RUBS. PMI IS NON DISPLACED. NO MURMURS; NORMAL S1-S2 PULMONARY: DECREASED BS OVER THE BASES. MILD BIBASILAR CRACKLES NOTED; NO INCREASED DULLNESS TO PERCUSSION ABDOMEN: SOFT. NON TENDER. NON DISTENDED. BOWEL SOUNDS ARE PRESENT IN ALL 4 QUADRANTS. NO MASS. EXTREMITIES: 1+ EDEMA [employer]IST BLE. NO CYANOSIS CLUBBING NOTED. NEURO: CRANIAL NERVES 2-12 GROSSLY INTACT. NO FOCAL NEUROLOGICAL DEFICIT NOTED. MSK: NORMAL RANGE OF MOTION FOR AGE. NO JOINT EFFUSION. SKIN: NORMAL FOR ETHNICITY; NO ECCHYMOSIS. NO LESION. GOOD TURGOR.; NO RASHES : NORMAL EXTERNAL GENITALIA. PSYCH : APPROPRIATE MOOD AND AFFECT. ALERT AWAKE ORIENTED X3 Objective Labs Result Diagrams: 08/25/18 09:05 08/25/18 09:05 Labs: Laboratory Results - last 24 hr 08/25/18 08/25/18 08/25/18 09:00 09:05 09:05 WBC 4.9 RBC 3.66 L Hgb 11.7 L Hct 34.2 L MCV 93.4 MCH 31.8 MCHC 34.1 RDW 15.8 H Plt Count 165 Neut % (Auto) 82.5 H Lymph % (Auto) 10.8 L [place] % (Auto) 6.1 Eos % (Auto) 0.3 L Baso % (Auto) 0.3 Neut # (Auto) 4000 ABG pH ABG pCO2 ABG pO2 ABG HCO3 ABG Total CO2 ABG O2 Saturation ABG Base Excess FiO2 Sodium Potassium Chloride Carbon Dioxide BUN Creatinine Estimated GFR BUN/Creatinine Ratio Glucose Lactate Calcium Phosphorus Magnesium Total Bilirubin AST ALT Alkaline Phosphatase B-Natriuretic Peptide Total Protein Albumin Globulin Albumin/Globulin Ratio Procalcitonin 0.25 Urine Color Yellow Urine Appearance Clear Urine pH 7.0 Ur Specific [place] 1.015 Urine Protein 1+ H Urine Glucose (UA) Negative Urine Ketones Negative Urine Occult Blood 2+ H Urine Nitrate Negative Urine Bilirubin Negative Urine Urobilinogen 0.2 Ur Leukocyte Esterase Negative Urine RBC 5-10/hpf H Urine WBC None seen Urine Bacteria None seen Ur Culture Indicated? Cult not indicated Micro UA Comment Not Reportable Influenza A & B (PCR) 08/25/18 08/25/18 08/25/18 09:05 09:05 09:05 WBC RBC Hgb Hct MCV MCH MCHC RDW Plt Count Neut % (Auto) Lymph % (Auto) [place] % (Auto) Eos % (Auto) Baso % (Auto) Neut # (Auto) ABG pH ABG pCO2 ABG pO2 ABG HCO3 ABG Total CO2 ABG O2 Saturation ABG Base Excess FiO2 Sodium 137 Potassium 4.0 Chloride 98 Carbon Dioxide 27 BUN 22 H Creatinine 1.20 Estimated GFR 58.7 L BUN/Creatinine Ratio 18.3 Glucose 162 H Lactate 1.0 Calcium 8.9 Phosphorus Magnesium Total Bilirubin 0.3 AST 15 L ALT 21 Alkaline Phosphatase 61 B-Natriuretic Peptide < 100.0 Total Protein 7.4 Albumin 3.8 Globulin 3.6 Albumin/Globulin Ratio 1.1 Procalcitonin Urine Color Urine Appearance Urine pH Ur Specific [place] Urine Protein Urine Glucose (UA) Urine Ketones Urine Occult Blood Urine Nitrate Urine Bilirubin Urine Urobilinogen Ur Leukocyte Esterase Urine RBC Urine WBC Urine Bacteria Ur Culture Indicated? Micro UA Comment Influenza A & B (PCR) 08/25/18 08/25/18 08/25/18 09:05 10:00 10:32 WBC RBC Hgb Hct MCV MCH MCHC RDW Plt Count Neut % (Auto) Lymph % (Auto) [place] % (Auto) Eos % (Auto) Baso % (Auto) Neut # (Auto) ABG pH 7.43 ABG pCO2 33.3 L ABG pO2 79 L ABG HCO3 22 ABG Total CO2 23 ABG O2 Saturation 96 ABG Base Excess -2.0 FiO2 24 Sodium Potassium Chloride Carbon Dioxide BUN Creatinine Estimated GFR BUN/Creatinine Ratio Glucose Lactate Calcium Phosphorus 1.8 L Magnesium 1.7 Total Bilirubin AST ALT Alkaline Phosphatase B-Natriuretic Peptide Total Protein Albumin Globulin Albumin/Globulin Ratio Procalcitonin Urine Color Urine Appearance Urine pH Ur Specific [place] Urine Protein Urine Glucose (UA) Urine Ketones Urine Occult Blood Urine Nitrate Urine Bilirubin Urine Urobilinogen Ur Leukocyte Esterase Urine RBC Urine WBC Urine Bacteria Ur Culture Indicated? Micro UA Comment Influenza A & B (PCR) Negative Assessment & Plan Plan: Assessment/Plan Narrative: IMPRESSION AND PLAN REPORTED/SUBJECTIVE FEVER; MAX TEMP NOTED AT 99.4; PATIENT IS IMMUNO-COMPROMISED ON STEROIDS ; GET SPUTUM AND THROAT CX; CONT ABX FOR NOW; ROCEPHINE AND DOXY WILL BE ORDERED FOR NOW TO HAVE SOME MRSA COVERAGE; CONSIDER VANCO X 1 DOSE; WILL ALSO START ON DIFLUCAN FOR 3 DAYS; FOLLOW BLOOD CX CLOSELY ANEMIA OF CD; MONITOR WITH SERIAL HH WARFARIN COAGULOPATHY; SUBTHERAPEUTIC ING; RESTART ON HOME DOSE TODAY ACUTE RESP FAILURE WITH HYPOXIA; OXYGEN THERAPY TO MAINTAIN PROPER OXYGEN SAT; CAUSE IS UNCLEAR CHEST FILMS ARE NEG; ON ABX; CONT PULSE OX; REPEAT ABG INDICATED; INCENTIVE SPIROMETER ELEVATED BUN; POSS RELATED TO STEROID THERAPY; CONSIDER PRE-RENAL AZOTHEMIA; ON IVF; MONITOR WITH SERIAL LABS REPORTED HX OF HF; HOWEVER, LAST ECHO WITH NORMAL EV AND PATIENT DOES NOT APPEAR TO HAVE ANY DECOMPENSATION CARDIAC VALDEZ AND NO S/S OF FLUID OVERLOAD; KEEP ON TELE FOR NOW; DAILY WT; STRICT IO; CONT LASIX CURRENTLY ORDERED OBESITY; OUTPATIENT MANAGEMENT ; LIFESTYLE CHANGES SWEET SYNDROME PER HX; MANAGED OP LOWER EXT NEUROPATHY; LIELY RELATED TO DM; WILL START ON LYRICA; MARICEL HOSE POSS MILD VENOUS STASIS W/O DERMATITIS; MARICEL HOSE; CONT LASIX THERAPY PER HOME DOSE ADRENAL INSUFFICIENCY; RESTART ON HOME STEROID DOSE TODAY DM2; ISS; HOME MEDS HIATAL HERNIA; CARAFATE AND PEPCID WHILE IN HOUSE DURATION OF THIS STAY 2-4 DAYS Time Spent With Patient Time with patient: Greater than 35 minutes
--- NOTE | 2018-08-25 14:25 | PT.IIE ---
Current Diagnoses Acute respiratory failure with hypoxia (08/25/18) Surgical History (Last Reviewed 08/25/18 @ 13:35 by Keely Naidu DO) Vocal cord dysfunction (Resolved 1997) Medical History (Last Reviewed 08/25/18 @ 13:35 by Keely Naidu DO) Diabetes mellitus, type II (Chronic) Systolic congestive heart failure (Chronic ~2015) Adrenal insufficiency (Chronic Unknown) Arthritis (Chronic Unknown) Sleep apnea (Chronic Unknown) Peripheral neuropathy (Chronic Unknown) History of deep vein thrombosis (Resolved Unknown) Sweet's syndrome (Chronic 2010) Neutropenia (Chronic Unknown) Myelodysplasia (myelodysplastic syndrome) (Chronic Unknown) GERD (gastroesophageal reflux disease) (Chronic Unknown) Congestive heart failure (Chronic) High risk medication use (Chronic 07/27/16) Chronic fatigue (Chronic 11/20/16) Physical Therapy Inpatient Evaluation/Re-Eval M1 PT/OT-IP Prior Functional Status Start: 08/25/18 15:36 Freq: NEEDED Status: Active Protocol: Document 08/25/18 14:25 AB (Rec: 08/25/18 15:46 AB [email or web address]) Medical Review Prior Functional Status Medical History Reviewed Yes Communication able to make needs known Mobility and Gait stated that he is modified independent with all mobilities and ambulation without AD Social History Household Members spouse Living Arrangements House Number of Floors (Floors) Two Floors Number of Stairs To Enter/Railing? lives on main level of the house; has 2 steps to enter without rails 1 flight of steps to go down to basement with R rail descending but pt does not have to go down Home Environment High Toilet Walk in Shower Home Equipment Front Wheel Walker Shower Seat with Backrest Hand Held Shower Grab Bars In Shower M2 PT-IP Current Condition Start: 08/25/18 15:36 Freq: NEEDED Status: Active Protocol: Document 08/25/18 14:25 AB (Rec: 08/25/18 15:46 AB [email or web address]) Physical Therapy Current Condition Current Condition Evaluation Date 08/25/18 Treatment Diagnosis fever; PNA; difficulty in walking; weakness Onset Date 08/25/18 M3 PT-IP Subjective Start: 08/25/18 15:36 Freq: NEEDED Status: Active Protocol: Document 08/25/18 14:25 AB (Rec: 08/25/18 15:46 AB [email or web address]) Subjective Physical Therapy Visit Type Type Initial Evaluation Visit Start Time 14:25 Visit Stop Time 14:45 Total Visit Minutes 20 Number of AUTOMATIC PATTERN EDGER Visits 0 Physical Therapy Visit Comments Patient Comments pt agreeable to do PT M4 PT-IP Mobility and Gait Start: 08/25/18 15:36 Freq: NEEDED Status: Active Protocol: Document 08/25/18 14:25 AB (Rec: 08/25/18 15:46 AB [email or web address]) PT-Bed Mobility Assessment Supine to Sit Supine to Sit Standby Assistance Sit to Supine Sit to Supine Standby Assistance PT-Transfer Assessment Sit to and From Stand Sit to and from Stand Standby Assistance Equipment Transfer Assistive Device Gait Belt Front Wheeled Walker Orthotic/Prosthetic Devices or Brace: No Gait Assessment Gait Gait Assistance Required: Contact Guard Assist Distance (Feet) 30 Able to Maintain Weight Bearing Status Yes During Gait Assistive Devices Assistive Device Gait Belt Front Wheeled Walker Gait Deviations General Gait Pattern Decreased Stride Length Decreased Feet Clearance Factors Limiting Gait Function Factors Limiting Gait Function Decreased Activity Tolerance Decreased Strength Poor Balance Comments Gait Comments pt ambulated in room using fWW ~ 30 ft CGA and cues. pt stated that he just feels weak PT-Balance Assessment Sitting Balance and Reactions Static Sitting Balance Ability Good Dynamic Sitting Balance Ability Good Standing Balance and Reactions Static Standing Balance Ability Fair Dynamic Standing Balance Ability Fair Device Used FWW M5 PT-IP Objective Assessments Start: 08/25/18 15:36 Freq: NEEDED Status: Active Protocol: Document 08/25/18 14:25 AB (Rec: 08/25/18 15:46 AB [email or web address]) Orientation Orientation/Cognition Level of Alertness Alert Orientation Name Age Birthday Month Date Year Day of Week Place Situation Gross Range of Motion Lower Extremity ROM Assessment Within Functional Limits Strength Lower Extremity Strength Assessment Within Functional Limits Sensation Assessment Sensation Gross Sensation WNL M6 PT-IP Treatment Start: 08/25/18 15:36 Freq: NEEDED Status: Active Protocol: Document 08/25/18 14:25 AB (Rec: 08/25/18 15:46 AB [email or web address]) Physical Therapy Treatment Education Education Provided Safety M7 PT-IP Assessment and Plan Start: 08/25/18 15:36 Freq: NEEDED Status: Active Protocol: Document 12/13/18 14:25 AB (Rec: 08/25/18 15:46 AB [email or web address]) PT Summary Assessment and Plan Potential Rehabilitation Potential Good Status of Condition at Evaluation Stable Summary Impairments Pain ROM Strength Balance Bed Mobility Transfers Gait Activity Tolerance Assessment Summary pt requires SBA to CGA with mobility and will likely improve during hospital stay. pt plans to go home with spouse to assist him. Goals Bed Mobility Goal Independent Transfer Goal Independent Gait Goal Independent Gait Distance 150 Other Goals up/down 2 steps without rail SBA Days to Meet Goals 3 Frequency of Treatment Frequency Of Treatment Once a Day Treatment Plan Physical Therapy Treatment Plan Bed Mobility Training Transfer Training Gait Training Therapeutic Exercise Balance Retraining Post Op Education Discharge Planning Hot or Cold Pack Neuromuscular Re-ed Coordination Retraining Manual Therapy Other Recommendations and Next Treatment ambulation with least Focus restrictive AD/ without AD up/down 2 steps without rails CGA Recommendations To Nursing Amount of Assist Needed 1 Person Assist Discharge Recommendations PT Discharge Recommendations Home with Assistance
[2018-08-25] MEDS: SODIUM CHLORIDE 0.9% 1,000 ML 70 ML IV (14:50)
[2018-08-25] MEDS: VANCOMYCIN 750 MG/150 ML FROZ.PIGGY 150 MG IV (14:50)
[2018-08-25] MEDS: HYDROCORTISONE 10 MG TABLET 40 MG PO (14:52)
[2018-08-25] MEDS: POTASSIUM CHLORIDE 20 MEQ TAB PO ×2 (14:56→20:56)
[2018-08-25] MEDS: PREGABALIN 75 MG CAPSULE PO ×2 (14:56→20:56)
--- NOTE | 2018-08-25 16:06 | PC.NURSE ---
Addendum entered by Kiki Miguel R.N. 08/25/18 23:37: Discussed with hospitalist MORIS use of coumadin and SQ heparin simultaneously. Orders from CONFERENCE PLANNER to administered both as ordered. Original Note: Addendum entered by Kiki Miguel R.N. 08/25/18 22:19: Pt provided with hs meds and head of bed elevated. Pt with increased dyspnea with taking oral meds. 02 sats decrease to upper 70's. Encouraged a break and rest with sips/meds. Sats increase back to 97% with rest. Consulted hospitalist MORIS and explained pt's dyspnea. CONFERENCE PLANNER to room to evaluate. Pt given lasix as ordered with ivf rate decreased to 50 cc/hr. Morphine 2 mg ivp administered. R.T. called to set up CPAP as per CONFERENCE PLANNER's directive. Pt's mentation remains appropriate. Original Note: Addendum entered by Kiki Miguel R.N. 08/25/18 19:30: Continuous pulse oximeter placed on pt as pt reports breathing at rest is labored. Using accessory muscles. 02 per nc @ 1L sats 100% with HR 72. Encouraged pt to keep head of bed elevated and pt reports easier to breathe with head of bed only slightly elevated. Continue to monitor. RR 32. Lung sounds unchanged from beginning of shift. Clear throughout. BL lea hose placed. Original Note: Addendum entered by Kiki Miguel R.N. 08/25/18 17:13: No current INR on this patient. Dr. Naidu in house and informed. states will electronically enter orders for stat INR. Warfarin held until this value is available. Original Note: Pt awake and alert @ beginning of shift. IV vancomycin infusing following dayshift obtaining throat culture. U/S in progress of lower extremities.
[2018-08-25] MEDS: SUCRALFATE 1 GM TABLET PO ×2 (16:21→20:56)
[2018-08-25] MEDS: DOXYCYCLINE 100 MG in SODIUM CHLORIDE 0.9% 100 ML IV (16:34)
[2018-08-25] MEDS: FLUCONAZOLE 100 MG TABLET PO (17:02)
[2018-08-25] MEDS: INSULIN ASPART 100 UNIT/ML INSULN PEN SUBCUT ×2 (17:07→20:53)
[2018-08-25 17:50] LABS: INR 1.8 (0.9-1.3); Prothrombin Time 20.3 SECONDS (10.1-12.7)
[2018-08-25] MEDS: WARFARIN 2.5 MG TABLET PO (18:16)
[2018-08-25] MEDS: HEPARIN 5,000 UNIT/ML VIAL 5000 UNIT SUBCUT (20:54)
[2018-08-25] MEDS: HYDROCORTISONE 10 MG TABLET 20 MG PO (20:55)
[2018-08-25] MEDS: METOPROLOL IR 25 MG TABLET PO (20:55)
[2018-08-25] MEDS: METFORMIN HCL 500 MG TABLET PO (20:55)
[2018-08-25] MEDS: PANTOPRAZOLE 20 MG TABLET PO (20:56)
[2018-08-25] MEDS: SODIUM CHLORIDE 0.9% FLUSH 10 ML IV (20:57)
[2018-08-25] MEDS: ACETAMINOPHEN 325 MG TABLET 650 MG PO (20:57)
[2018-08-25] MEDS: FUROSEMIDE 40 MG/4 ML VIAL IV (22:02)
[2018-08-25] MEDS: MAGNESIUM OXIDE 400 MG TABLET PO (22:02)
[2018-08-25] MEDS: MORPHINE 2 MG/ML INJ IV (22:15)
--- NOTE | 2018-08-25 22:38 | RT ---
PT PLACED ON HOSPITAL BIFLEX PER VERBAL ORDER BY DR. GUNN. PT'S HOME CPAP NOT HERE. O2 BLEED-IN OF 1 LPM ADDED. O2 SAT NOTED AT 95%. RR = 18. LARGE, FULL-FACE MASK APPEARS W/ GOOD FIT.
[2018-08-26] VITALS (18 sets, daily range): BP systolic 126–138; BP diastolic 59–79; PULSE 68–92; RESP 19–32; TEMP 36.4–38; O2SAT 2–99
--- NOTE | 2018-08-26 | DI.RAD.S_ITS ---
PROCEDURE: XR CHEST 2V INDICATIONS: SOB/LOVING TECHNIQUE: 2 views of the chest were acquired. COMPARISON: [facility], CT, CT ANGIO CHEST, 08/25/2018, 9:49. [facility], CR, XR CHEST 1V, 08/25/2018, 8:35. FINDINGS: Surgical changes and devices: A left-sided Port-A-Cath central line is identified, which is unchanged in position. Lungs and pleura: Elevation of the right diaphragm is similar to the previous exam. There may be areas of minimal scarring versus atelectasis within the lung bases. Overall, aeration of the lungs is similar to the prior study. No focal consolidation, effusion, or pneumothorax is identified. Mediastinum: Mediastinal contours are normal. Heart size is normal. There is aortic atherosclerosis. Bones and chest wall: No suspicious bony abnormalities. Degenerative changes of the spine and shoulders appear unchanged, but are not adequately evaluated. Soft tissues appear unremarkable. IMPRESSION: Stable chest. No acute cardiopulmonary process is evident. Dictated by: Ramo Villasenor M.D. on 08/26/2018 at 8:48 Approved by: Ramo Villasenor M.D. on 08/26/2018 at 8:49
[2018-08-26] MEDS: DOXYCYCLINE 100 MG in SODIUM CHLORIDE 0.9% 100 ML IV ×2 (02:31→14:09)
[2018-08-26] MEDS: PANTOPRAZOLE 20 MG TABLET PO ×2 (05:59→20:44)
[2018-08-26 06:40] LABS: INR 1.9 (0.9-1.3); Prothrombin Time 22.3 SECONDS (10.1-12.7)
[2018-08-26 06:45] LABS: Alanine Aminotransferase 17 IU/L (21-72); Albumin 3.7 g/dL (3.5-5.0); Alkaline Phosphatase 58 U/L (38-126); Aspartate Aminotransferase 16 IU/L (17-59); BUN Creatinine Ratio 12.3 (6-22); Bilirubin Total 0.2 mg/dL (0.2-1.3); Blood Urea Nitrogen 16 mg/dL (9-20); Calcium 8.6 mg/dL (8.4-10.2); Carbon Dioxide 27 mmol/L (22-32); Chloride 98 mmol/L (98-107); Estimated Glomerular Filt Rate 53.5 mL/min (>60); Globulin 3.6 g/dL (1.7-4.1); Glucose 106 mg/dL (80-110); HEMOLYSIS < 15 (0-50); Potassium 4.1 mmol/L (3.4-5.1); Sodium 138 mmol/L (137-145); Total Protein 7.3 g/dL (6.3-8.2)
[2018-08-26] MEDS: HYDROCORTISONE 10 MG TABLET 40 MG PO (08:08)
[2018-08-26] MEDS: FUROSEMIDE 40 MG TABLET PO (08:08)
[2018-08-26] MEDS: PREGABALIN 75 MG CAPSULE PO ×2 (08:08→20:44)
[2018-08-26] MEDS: SIMETHICONE 80 MG TABLET PO ×2 (08:08→20:44)
[2018-08-26] MEDS: METFORMIN HCL 500 MG TABLET PO ×2 (08:08→20:44)
[2018-08-26] MEDS: POLYETHYLENE GLYCOL 3350 17 GM POWD.PACK 34 GM PO (08:08)
[2018-08-26] MEDS: SUCRALFATE 1 GM TABLET PO ×4 (08:08→20:44)
[2018-08-26] MEDS: METOPROLOL IR 25 MG TABLET PO ×2 (08:08→20:44)
[2018-08-26] MEDS: POTASSIUM CHLORIDE 20 MEQ TAB PO ×3 (08:20→20:44)
[2018-08-26] MEDS: CEFTRIAXONE 1 GM/50 ML FROZ.PIGGY IV (08:20)
[2018-08-26] MEDS: HEPARIN 5,000 UNIT/ML VIAL 5000 UNIT SUBCUT ×2 (08:27→20:42)
[2018-08-26] MEDS: FLUCONAZOLE 100 MG TABLET PO (08:27)
[2018-08-26] MEDS: ALBUTEROL 2.5 MG/3 ML NEB (ADULT) INH ×4 (08:29→20:03)
[2018-08-26 08:38] LABS: Add Manual Diff / Slide Review NO; Basophils Percent Auto 2.3 % (0-2); Eosinophils Percent Auto 0.5 % (2-4); Hemoglobin 11.1 g/dL (13.5-17.5); Lymphocytes Percent Auto 12.2 % (25-40); Mean Corpuscular HGB Conc 33.5 % (30-36); Mean Corpuscular Hemoglobin 31.9 PG (26-34); Monocytes Percent Auto 8.5 % (3-14); Neutrophils Absolute Auto 3200 /uL (1500-7000); Neutrophils Percent Auto 76.5 % (50-75); Platelet Count 161 X10^3/uL (150-400); Red Blood Cell Count 3.47 X10^6/uL (4.5-5.9); Red Cell Distribution Width 15.9 % (11.6-14.8); White Blood Cell Count 4.2 X10^3/uL (4.5-11.0)
[2018-08-26 09:09] LABS: Fractionated Inspired Oxygen 28; HCO3 ABG 22 mmol/L (22-26); Oxygen Saturation ABG 96 % (95-100); PCO2 ABG 31.8 mmHg (35-45); PO2 ABG 75 mmHg (80-100); TCO2 ABG 23 mmol/L (21-31); pH ABG 7.45 (7.35-7.45)
[2018-08-26] MEDS: BISACODYL 10 MG SUPP PR (09:31)
[2018-08-26] MEDS: SODIUM CHLORIDE 0.9% FLUSH 10 ML IV ×2 (09:32→20:44)
[2018-08-26] MEDS: HYDROCORTISONE 100 MG/2 ML VIAL IV ×2 (10:14→20:44)
[2018-08-26] MEDS: ACETAMINOPHEN 325 MG TABLET 650 MG PO (10:32)
[2018-08-26] MEDS: INSULIN ASPART 100 UNIT/ML INSULN PEN SUBCUT ×2 (11:36→16:34)
--- NOTE | 2018-08-26 11:56 | P.PN_ITS ---
Subjective Date Patient Seen: 08/26/18 Time Patient Seen: 11:43 Interval history: HAVING SOME SOB AND LOVING TODAY FEVER ALSO REPORTED BY NURSING NO CP/SOB NO DIARRHEA ; NO N/V Exam Vital Signs (past 8 hours): - 08/26/18 05:11 08/26/18 07:40 08/26/18 08:33 Temperature 98.1 F 97.8 F Pulse Rate 85 92 H Respiratory Rate 28 H 28 H Blood Pressure 138/76 138/71 Pulse Oximetry 93 91 95 08/26/18 08:35 08/26/18 08:53 08/26/18 10:01 Temperature Pulse Rate 84 83 Respiratory Rate 30 H 30 H Blood Pressure Pulse Oximetry 99 96 2 L 08/26/18 10:32 08/26/18 10:48 08/26/18 11:37 Temperature 99.4 F 100.4 F H Pulse Rate Respiratory Rate Blood Pressure Pulse Oximetry 98 Oxygen Delivery Method Nasal Cannula Oxygen Flow Rate 2 Narrative Exam Narrative: NO ACUTE DISTRESS. PATIENT IS ALERT ORIENTED X3. APPEARS ILL VITAL SIGNS STABLE HEAD ATRAUMATIC NORMOCEPHALIC NECK : SUPPLE WITHOUT ADENOPATHY NO CAROTID BRUITS EYE: EOMI, PERRLA, NORMAL CONJUNCTIVA; NO JAUNDICE CHEST: REGULAR RATE. NO RUBS. PMI IS NON DISPLACED. NO MURMURS; NORMAL S1- S2 PULMONARY: DECREASED BS AT THE BASES. NO CRACKLES ; NO INCREASED DULLNESS TO PERCUSSION; WHEEZING NOTED THROUGHOUT ABDOMEN: SOFT. NON TENDER. NON DISTENDED. BOWEL SOUNDS ARE PRESENT IN ALL 4 QUADRANTS. NO MASS. EXTREMITIES: 1+ EDEMA PET CARETAKER BLE. NO CYANOSIS CLUBBING NOTED. NEURO: CRANIAL NERVES 2-12 GROSSLY INTACT. NO FOCAL NEUROLOGICAL DEFICIT NOTED. MSK: NORMAL RANGE OF MOTION FOR AGE. NO JOINT EFFUSION. SKIN: NORMAL FOR ETHNICITY; NO ECCHYMOSIS. NO LESION. GOOD TURGOR.; NO RASHES : NORMAL EXTERNAL GENITALIA. PSYCH : APPROPRIATE MOOD AND AFFECT. ALERT AWAKE ORIENTED X3 Objective Labs Result Diagrams: 08/26/18 06:20 08/26/18 06:20 Labs: Laboratory Results - last 24 hr 08/25/18 08/25/18 08/26/18 09:05 17:34 06:20 WBC 4.2 L RBC 3.47 L Hgb 11.1 L Hct 33.0 L MCV 95.0 MCH 31.9 MCHC 33.5 RDW 15.9 H Plt Count 161 Neut % (Auto) 76.5 H Lymph % (Auto) 12.2 L [place] % (Auto) 8.5 Eos % (Auto) 0.5 L Baso % (Auto) 2.3 H Neut # (Auto) 3200 PT 20.3 H INR 1.8 H ABG pH ABG pCO2 ABG pO2 ABG HCO3 ABG Total CO2 ABG O2 Saturation ABG Base Excess FiO2 Sodium Potassium Chloride Carbon Dioxide BUN Creatinine Estimated GFR BUN/Creatinine Ratio Glucose Calcium Phosphorus 1.8 L Magnesium 1.7 Total Bilirubin AST ALT Alkaline Phosphatase Total Protein Albumin Globulin Albumin/Globulin Ratio 08/26/18 08/26/18 08/26/18 06:20 06:20 08:55 WBC RBC Hgb Hct MCV MCH MCHC RDW Plt Count Neut % (Auto) Lymph % (Auto) [place] % (Auto) Eos % (Auto) Baso % (Auto) Neut # (Auto) PT 22.3 H INR 1.9 H ABG pH 7.45 ABG pCO2 31.8 L ABG pO2 75 L ABG HCO3 22 ABG Total CO2 23 ABG O2 Saturation 96 ABG Base Excess -2.0 FiO2 28 Sodium 138 Potassium 4.1 Chloride 98 Carbon Dioxide 27 BUN 16 Creatinine 1.30 H Estimated GFR 53.5 L BUN/Creatinine Ratio 12.3 Glucose 106 Calcium 8.6 Phosphorus Magnesium Total Bilirubin 0.2 AST 16 L ALT 17 L Alkaline Phosphatase 58 Total Protein 7.3 Albumin 3.7 Globulin 3.6 Albumin/Globulin Ratio 1.0 Assessment & Plan Plan: Assessment/Plan Narrative: IMPRESSION AND PLAN REPORTED/SUBJECTIVE FEVER; MAX TEMP NOTED TODAY AT 100.4; PATIENT IS IMMUNO- COMPROMISED ON STEROIDS; CX REMAIN NEG SO FAR; NOT SURE OF THE SOURCE OF ANY INFECTION ONGOAING ALL WORKUPS ARE SO FAR NEG; CONT WITH ROCEPHIN AND DOXY FOR NOW; REPEAT ALL CX INDICATED ANEMIA OF CD; MONITOR WITH SERIAL HH WARFARIN COAGULOPATHY; SUBTHERAPEUTIC ING; RESTART ON HOME DOSE TODAY ACUTE RESP FAILURE WITH HYPOXIA; CONT WITH OXYGEN THERAPY TO MAINTAIN PROPER OXYGEN SAT; RT CONSULTED; BIPAP TO BE USED WHILE ASLEEP AT HOME SETTING; BACTERIAL PNA IS RULED OUT; OCCULT VIRAL LUNG INFECTION IS A POSSIBILITY; HOWEVER WILL KEEP ON ABX FOR NOW; CONT PULSE OX; REPEAT ABG INDICATED; INCENTIVE SPIROMETERY; STARTED ON IV STEROIDS ELEVATED BUN; POSS RELATED TO STEROID THERAPY; CONSIDER PRE-RENAL AZOTEMIA; ON IVF; MONITOR WITH SERIAL LABS REPORTED HX OF HF; HOWEVER, LAST ECHO WITH NORMAL EF AND PATIENT DOES NOT APPEAR TO HAVE ANY DECOMPENSATION CARDIAC VALDEZ AND NO S/S OF FLUID OVERLOAD; KEEP ON TELE FOR NOW; DAILY WT; STRICT IO; CONT LASIX CURRENTLY ORDERED OBESITY; OUTPATIENT MANAGEMENT ; LIFESTYLE CHANGES SWEET SYNDROME PER HX; MANAGED OP LOWER EXT NEUROPATHY; LIELY RELATED TO DM; WILL START ON LYRICA; MARICEL HOSE POSS MILD VENOUS STASIS W/O DERMATITIS; MARICEL HOSE; CONT LASIX THERAPY PER HOME DOSE ADRENAL INSUFFICIENCY; ON IV STEROIDS FOR NOW DM2; ISS; HOME MEDS HIATAL HERNIA; CARAFATE AND PEPCID WHILE IN HOUSE PROGNOSIS IS GUARDED CONT CURRENT MANAGEMENT BROADEN ABX COVERAGE INDICATED PT/OT AMBULATE TID OOB/IN CHAIR TID Quality VTE Deep Vein Thrombosis/Pulmonary Embolism Present on Admission: No
--- NOTE | 2018-08-26 11:59 | PT.IPTN ---
Current Diagnoses Acute respiratory failure with hypoxia (08/25/18) Physical Therapy Treatment Note M2 PT-IP Current Condition Start: 08/25/18 15:36 Freq: NEEDED Status: Active Protocol: Document 08/25/18 14:25 AB (Rec: 08/25/18 15:46 AB [email or web address]) Physical Therapy Current Condition Current Condition Evaluation Date 08/25/18 Treatment Diagnosis fever; PNA; difficulty in walking; weakness Onset Date 08/25/18 M3 PT-IP Subjective Start: 08/25/18 15:36 Freq: NEEDED Status: Active Protocol: Document 08/26/18 11:59 DLM (Rec: 08/26/18 12:07 DLM [email or web address]) Subjective Physical Therapy Visit Type Type Treatment Note Visit Start Time 11:40 Visit Stop Time 11:59 Total Visit Minutes 19 Number of SHIP PILOT Visits 0 Physical Therapy Visit Comments Patient Comments He has been feeling hot today, still hard to breath all the time Therapy Pain Assessment Pain When Pain Assessed During Mobility Pain Present Pain Present Denied Pain M4 PT-IP Mobility and Gait Start: 08/25/18 15:36 Freq: NEEDED Status: Active Protocol: Document 08/26/18 11:59 DLM (Rec: 08/26/18 12:07 DLM [email or web address]) PT-Bed Mobility Assessment Supine to Sit Supine to Sit Independent Scooting Scooting to Edge of Bed Independent PT-Transfer Assessment Sit to and From Stand Sit to and from Stand Standby Assistance Equipment Transfer Assistive Device Gait Belt Front Wheeled Walker Transfers Transfer Destination Chair Transfer Technique Stand Step Pivot Transfer Ability Level of Assist Standby Assistance Use of Upper Extremities Comments Mobility Comments gets short of breath when getting out of bed with increased effort noted Gait Assessment Gait Gait Assistance Required: Standby Assistance Distance (Feet) 25 Assistive Devices Assistive Device Gait Belt Front Wheeled Walker Factors Limiting Gait Function Factors Limiting Gait Function Decreased Activity Tolerance Respiratory Distress Comments Gait Comments he needs help managing his lines, shortness of breath with gait that resolves with seated rest breaks, two trials of gait performed, pt left sitting up in recliner for lunch at end of session, pt continues on supplemental oxygen with sats 88-97% PT-Balance Assessment Sitting Balance and Reactions Static Sitting Balance Ability Normal Dynamic Sitting Balance Ability Good Standing Balance and Reactions Static Standing Balance Ability Good Dynamic Standing Balance Ability Good Device Used with FWW M5 PT-IP Objective Assessments Start: 08/25/18 15:36 Freq: NEEDED Status: Active Protocol: Document 08/25/18 14:25 AB (Rec: 08/25/18 15:46 AB [email or web address]) Orientation Orientation/Cognition Level of Alertness Alert Orientation Name Age Birthday Month Date Year Day of Week Place Situation Gross Range of Motion Lower Extremity ROM Assessment Within Functional Limits Strength Lower Extremity Strength Assessment Within Functional Limits Sensation Assessment Sensation Gross Sensation WNL M6 PT-IP Treatment Start: 08/25/18 15:36 Freq: NEEDED Status: Active Protocol: Document 08/26/18 11:59 DLM (Rec: 08/26/18 12:07 DLM [email or web address]) Physical Therapy Treatment Education Education Provided Safety Other Treatments Other Treatment Performed education for breathing techniques and energy management during mobility M7 PT-IP Assessment and Plan Start: 08/25/18 15:36 Freq: NEEDED Status: Active Protocol: Document 08/26/18 11:59 DLM (Rec: 08/26/18 12:07 DLM [email or web address]) PT Summary Assessment and Plan Summary Progress Towards Goals Progressing Toward Goals Assessment Summary He continues to make gradual progress with his mobility. He continues to c/o shortness of breath and fatigue that limits his distance of gait. Continue to plan for discharge home with his Spouse when medically cleared. Frequency of Treatment Frequency Of Treatment Once a Day Treatment Plan Physical Therapy Treatment Plan Bed Mobility Training Transfer Training Gait Training Therapeutic Exercise Balance Retraining Discharge Planning Neuromuscular Re-ed Other Recommendations and Next Treatment breathing education Focus Recommendations To Nursing Amount of Assist Needed Standby Assistance Discharge Recommendations PT Discharge Recommendations Home with Assistance
--- NOTE | 2018-08-26 13:08 | PC.NURSE ---
SHIFT SUMMARY: PATIENT VERY SOB THIS AM AT REST, FACE FLUSHED DEEP RED. SAT 93% ON RA. 2L/NC PLACED W/ SAT UP TO 98%. RT WAS CALLED IN, GAVE TX, ABG'S DRAWN. 2 VIEW CXR WAS TAKEN. MD AWARE OF ALL RESULTS. STEROIDS ADJUSTED. EXP WHEEZE BL BASES AND RHONCHI BL BASES W/ PROLONGED EXP PHASE THIS AM. TAKES MEDS WHOLE W/ WATER. EATING OKAY. FEBRILE TODAY 100.4, TYLENOL GIVEN. UP IN RECLINER FOR LUNCH. ABLE TO SLEEP SOME. STATES FEELS FATIGUED AND WEAK. USES URINAL STANDING W/ 1P ASSIST. GIVEN SUPPOSITORY, NO RESULTS. GIVEN MIRALAX, NO RESULTS. USES CALL LIGHT APPROPRIATELY.
[2018-08-26] MEDS: WARFARIN 1 MG TABLET PO (16:34)
[2018-08-26] MEDS: FAMCICLOVIR 250 MG 250 EACH PO (16:34)
[2018-08-26] MEDS: WARFARIN 2.5 MG TABLET PO (16:34)
--- NOTE | 2018-08-26 16:53 | OT.IP.EVAL ---
Current Diagnoses Acute respiratory failure with hypoxia (08/25/18) Past Medical History (Last Reviewed 08/25/18 @ 13:35 by Keely Naidu DO) Diabetes mellitus, type II (Chronic) Systolic congestive heart failure (Chronic ~2016) Adrenal insufficiency (Chronic Unknown) Arthritis (Chronic Unknown) Sleep apnea (Chronic Unknown) Peripheral neuropathy (Chronic Unknown) History of deep vein thrombosis (Resolved Unknown) Sweet's syndrome (Chronic 2010) Neutropenia (Chronic Unknown) Myelodysplasia (myelodysplastic syndrome) (Chronic Unknown) GERD (gastroesophageal reflux disease) (Chronic Unknown) Congestive heart failure (Chronic) High risk medication use (Chronic 07/27/16) Chronic fatigue (Chronic 11/20/16) Surgical History (Last Reviewed 08/25/18 @ 13:35 by Keely Naidu DO) Vocal cord dysfunction (Resolved 1997) Occupational Therapy Inpatient Evaluation/Re-Eval M1 PT/OT-IP Prior Functional Status Start: 08/25/18 15:36 Freq: NEEDED Status: Active Protocol: Document 08/25/18 14:25 AB (Rec: 08/25/18 15:46 AB [email or web address]) Medical Review Prior Functional Status Medical History Reviewed Yes Communication able to make needs known Mobility and Gait stated that he is modified independent with all mobilities and ambulation without AD Social History Household Members spouse Living Arrangements House Number of Floors (Floors) Two Floors Number of Stairs To Enter/Railing? lives on main level of the house; has 2 steps to enter without rails 1 flight of steps to go down to basement with R rail descending but pt does not have to go down Home Environment High Toilet Walk in Shower Home Equipment Front Wheel Walker Shower Seat with Backrest Hand Held Shower Grab Bars In Shower M1 PT/OT-IP Prior Functional Status Start: 08/26/18 16:04 Freq: NEEDED Status: Active Protocol: Document 08/26/18 16:05 [facility] (Rec: 08/26/18 16:53 [facility] [id number]) Medical Review Prior Functional Status Medical History Reviewed Yes Communication able to make needs known Mobility and Gait stated that he is modified independent with all mobilities and ambulation without AD Activities of Daily Living and IADL's Per pt independent with all ADL needs, pt states drive occasionally and take his own medications. Pt's pays the bills, drives and also taking care of his 99year old mother who also lives with them Social History Household Members spouse Living Arrangements House Number of Floors (Floors) Two Floors Number of Stairs To Enter/Railing? lives on main level of the house; has 2 steps to enter without rails, pt states the two step are wide and big enough for a walker to fit on. 1 flight of steps to go down to basement with R rail descending but pt does not have to go down Home Environment High Toilet Walk in Shower Home Equipment Front Wheel Walker Shower Seat with Backrest Hand Held Shower Grab Bars In Shower Employment Status Retired M2 OT-IP Current Condition Start: 08/26/18 16:04 Freq: Status: Active Protocol: Document 08/26/18 16:05 [facility] (Rec: 08/26/18 16:53 [facility] [id number]) Occupational Therapy Current Condition Current Condition Evaluation Date 08/26/18 Treatment Diagnosis Acute Respiratory Failure with hypoxia Diagnosis Onset Date 08/25/18 M3 OT- IP Subjective and Pain Start: 08/26/18 16:04 Freq: Status: Active Protocol: Document 08/26/18 16:05 [facility] (Rec: 08/26/18 16:53 [facility] [id number]) OT- Subjective Occupational Therapy Visit Type Type Initial Evaluation Visit Start Time 15:15 Visit Stop Time 15:55 Total Visit Minutes 40 Occupational Therapy Visit Comments Patient Comments Pt states feels able to do all ADL needs but main trouble is decreased activity tolerance. OT Pain Assessment Pain When Pain Assessed At Rest Pain Present Pain Present Denied Pain M4 OT- IP ADL's Start: 08/26/18 16:04 Freq: Status: Active Protocol: Document 08/26/18 16:05 [facility] (Rec: 08/26/18 16:53 [facility] [id number]) OT ADL-Grooming General Evaluation Grooming Ability Independent Comments OT Grooming Comments Independent while standing at the sink. OT ADL-Oral Care General Eval Oral Care Ability Independent OT ADL-Dressing General Eval Lower Body Dressing Ability Standby Assistance Comments OT Dressing Comments Increased time for socks via crossing his legs over. Showed and issued sock aid for pt and able to show good safety and understanding. M6 OT- IP Functional Cognition Start: 08/26/18 16:04 Freq: Status: Active Protocol: Document 08/26/18 16:05 [facility] (Rec: 08/26/18 16:53 [facility] [id number]) Cognitive Factors Limiting Selfcare Function Cognitive Ability Level of Alertness Alert Patient Orientation Name Age Birthday Month Date Year Day of Week Place Situation Attention Span Ability Capable of Focused Attention Capable of Sustained Attention Ability to Follow Commands Able to Follow Multi-Step Commands Memory Description No Deficits Noted Safety Awareness No Deficits Noted Problem Solving Ability No deficits Noted Cognitive Comments Cognitive Assessment Comments No deficits noted at this time . Pt has good insight and thinking about building a ramp for the two steps. OT- Vision and Hearing OT- Hearing Assessment OT- Hearing Assessment WFL M7 OT- IP Mobility and Balance Start: 08/26/18 16:04 Freq: Status: Active Protocol: Document 08/26/18 16:05 [facility] (Rec: 08/26/18 16:53 [facility] [id number]) OT-Transfer Assessment Sit to and From Stand Sit to and from Stand Standby Assistance Transfers Transfer Ability Standby Assistance Technique Transfer Destination Chair Transfer Technique Stand Step Pivot Devices Transfer Assistive Devices None Gait Belt Comments Mobility Comments SBA to walk to and from the sink. Pt also able to manage own IV and O2 tubing on his own. OT- Balance Assessment Sitting Balance and Reactions Static Sitting Balance Ability Normal Dynamic Sitting Balance Ability Normal Standing Balance and Reactions Static Standing Balance Ability Normal Dynamic Standing Balance Ability Good Comments Other Balance Tests/Deviations/Treatment Pt able to withstand MOD : perturbations while standing. M8 OT- IP Objective Assessments Start: 08/26/18 16:04 Freq: Status: Active Protocol: Document 08/26/18 16:05 [facility] (Rec: 08/26/18 16:53 [facility] [id number]) OT Gross Range of Motion Upper Extremity Range of Motion Assessment Within Functional Limits OT Strength Comments Strength Comments BUE strength 4+/5. OT-Muscle Tone Assessment Muscle Tone WNL Yes OT Sensation Assessment Comments Summary Comments WFL Edema Edema Comments Edema in hands,arm, face, and legs. M9 OT- IP Assessment and Plan Start: 08/26/18 16:04 Freq: Status: Active Protocol: Document 08/26/18 16:05 [facility] (Rec: 08/26/18 16:53 [facility] [id number]) OT Summary Assessment and Plan Potential Rehabilitation Potential Good Analytic Complexity at Evaluation Low Summary OT Impairments Functional Mobility Progress Towards Goals Progressing Toward Goals Assessment Summary Pt Low complexity and main barrier is decreased activity tolerance as O2 levels drop to 88% after minimal activity of brushing his teeth. Pt on 3L of O2 at this time. Pt given energy conservation information and able to assist pt for needs as needed. PT to continue to follow pt for mobility and endurance needs. Therefore discharge pt from OT services. Frequency of Treatment Frequency Of Treatment Once a Day Treatment Plan OT Treatment Plan Discharge Planning Discharge Recommendations OT Discharge Recommendations Home with Assistance
[2018-08-26] MEDS: GRISEOFULVIN MICROSIZE 500 MG 500 EACH PO (20:43)
[2018-08-27] VITALS (11 sets, daily range): BP systolic 119–138; BP diastolic 69–76; PULSE 63–84; RESP 14–20; TEMP 35.7–36.6; O2SAT 2–100
[2018-08-27] MEDS: DOXYCYCLINE 100 MG in SODIUM CHLORIDE 0.9% 100 ML IV ×2 (02:10→13:39)
[2018-08-27] MEDS: FAMCICLOVIR 250 MG 250 EACH PO ×2 (02:10→15:46)
[2018-08-27] MEDS: SODIUM CHLORIDE 0.9% FLUSH 10 ML IV ×3 (02:11→21:43)
[2018-08-27] MEDS: PANTOPRAZOLE 20 MG TABLET PO ×2 (06:27→21:44)
[2018-08-27] MEDS: ALBUTEROL 2.5 MG/3 ML NEB (ADULT) INH ×3 (07:48→18:01)
[2018-08-27 07:50] LABS: Add Manual Diff / Slide Review NO; Basophils Percent Auto 1.5 % (0-2); Eosinophils Percent Auto 0.4 % (2-4); Hematocrit 28.7 % (41-53); Hemoglobin 9.8 g/dL (13.5-17.5); Mean Corpuscular HGB Conc 34.2 % (30-36); Mean Corpuscular Volume 93.7 fL (80-100); Monocytes Percent Auto 12.6 % (3-14); Neutrophils Absolute Auto 1600 /uL (1500-7000); Neutrophils Percent Auto 64.5 % (50-75); Platelet Count 150 X10^3/uL (150-400); Red Blood Cell Count 3.06 X10^6/uL (4.5-5.9); Red Cell Distribution Width 15.7 % (11.6-14.8); White Blood Cell Count 2.5 X10^3/uL (4.5-11.0)
[2018-08-27 07:53] LABS: Alanine Aminotransferase 13 IU/L (21-72); Albumin 3.4 g/dL (3.5-5.0); Alkaline Phosphatase 55 U/L (38-126); Aspartate Aminotransferase 18 IU/L (17-59); BUN Creatinine Ratio 19.1 (6-22); Bilirubin Total 0.1 mg/dL (0.2-1.3); Blood Urea Nitrogen 21 mg/dL (9-20); Calcium 8.8 mg/dL (8.4-10.2); Carbon Dioxide 26 mmol/L (22-32); Chloride 100 mmol/L (98-107); Estimated Glomerular Filt Rate > 60.0 mL/min (>60); Globulin 3.3 g/dL (1.7-4.1); Glucose 150 mg/dL (80-110); HEMOLYSIS < 15 (0-50); Potassium 4.1 mmol/L (3.4-5.1); Sodium 138 mmol/L (137-145); Total Protein 6.7 g/dL (6.3-8.2)
[2018-08-27] MEDS: METOPROLOL IR 25 MG TABLET PO ×2 (08:30→21:44)
[2018-08-27] MEDS: FUROSEMIDE 40 MG TABLET PO (08:30)
[2018-08-27] MEDS: METFORMIN HCL 500 MG TABLET PO ×2 (08:30→21:44)
[2018-08-27] MEDS: POTASSIUM CHLORIDE 20 MEQ TAB PO ×3 (08:30→21:44)
[2018-08-27] MEDS: FLUCONAZOLE 100 MG TABLET PO (08:31)
[2018-08-27] MEDS: SUCRALFATE 1 GM TABLET PO ×4 (08:31→21:44)
[2018-08-27] MEDS: GRISEOFULVIN MICROSIZE 500 MG 500 EACH PO ×2 (08:32→21:43)
[2018-08-27] MEDS: HEPARIN 5,000 UNIT/ML VIAL 5000 UNIT SUBCUT ×2 (08:32→21:43)
[2018-08-27] MEDS: HYDROCORTISONE 100 MG/2 ML VIAL IV ×2 (08:34→21:44)
[2018-08-27] MEDS: PREGABALIN 75 MG CAPSULE PO ×2 (08:34→21:44)
[2018-08-27] MEDS: SIMETHICONE 80 MG TABLET PO ×2 (08:35→21:44)
[2018-08-27] MEDS: CEFTRIAXONE 1 GM/50 ML FROZ.PIGGY IV (08:37)
[2018-08-27] MEDS: INSULIN ASPART 100 UNIT/ML INSULN PEN SUBCUT (08:40)
[2018-08-27 09:36] LABS: Prothrombin Time 22.9 SECONDS (10.1-12.7)
--- NOTE | 2018-08-27 09:57 | PM.PN.1 ---
Subjective Date Patient Seen: 08/27/18 Time Patient Seen: 07:00 Interval history: FEELING BETTER THIS AM STILL WITH MILD TO MOD RESPIRATORY DIFFICULTIES MILD COUGH NO CP/CHEST PALPITATIONS Exam Vital Signs (past 8 hours): - 08/27/18 03:00 08/27/18 07:51 08/27/18 08:00 Temperature 96.2 F L 97.3 F L Pulse Rate 63 68 76 Respiratory Rate 20 18 20 Blood Pressure 128/76 133/69 Pulse Oximetry 100 99 94 Fraction of Inspired Oxygen 21 Oxygen Delivery Method Room Air Oxygen Flow Rate 0 Narrative Exam Narrative: NO ACUTE DISTRESS. PATIENT IS ALERT ORIENTED X3 VITAL SIGNS STABLE HEAD ATRAUMATIC NORMOCEPHALIC NECK : SUPPLE; SWOLLEN AREA / POSS LYMPH NODES TO LEFT NECK AREA; NO CAROTID BRUITS EYE: EOMI, PERRLA, NORMAL CONJUNCTIVA; NO JAUNDICE CHEST: REGULAR RATE. NO RUBS. PMI IS NON DISPLACED. NO MURMURS; NORMAL S1-S2 PULMONARY: DECREASED BS AT THE BASES. NO CRACKLES ; NO INCREASED DULLNESS TO PERCUSSION; WHEEZING NOTED THROUGHOUT ABDOMEN: SOFT. NON TENDER. NON DISTENDED. BOWEL SOUNDS ARE PRESENT IN ALL 4 QUADRANTS. NO MASS. EXTREMITIES: 1+ EDEMA NON PITTING BLE. NO CYANOSIS CLUBBING NOTED. NEURO: CRANIAL NERVES 2-12 GROSSLY INTACT. NO FOCAL NEUROLOGICAL DEFICIT NOTED. MSK: NORMAL RANGE OF MOTION FOR AGE. NO JOINT EFFUSION. SKIN: NORMAL FOR ETHNICITY; NO ECCHYMOSIS. NO LESION. GOOD TURGOR.; NO RASHES : NORMAL EXTERNAL GENITALIA. PSYCH : APPROPRIATE MOOD AND AFFECT. ALERT AWAKE ORIENTED X3 Objective Labs Result Diagrams: 08/27/18 07:30 08/27/18 07:30 Labs: Laboratory Results - last 24 hr 08/26/18 08/27/18 08/27/18 06:20 07:30 07:30 WBC 2.5 L RBC 3.06 L Hgb 9.8 L Hct 28.7 L MCV 93.7 MCH 32.0 MCHC 34.2 RDW 15.7 H Plt Count 150 Neut % (Auto) 64.5 Lymph % (Auto) 21.0 L [place] % (Auto) 12.6 Eos % (Auto) 0.4 L Baso % (Auto) 1.5 Neut # (Auto) 1600 PT INR Sodium 138 Potassium 4.1 Chloride 100 Carbon Dioxide 26 BUN 21 H Creatinine 1.10 Estimated GFR > 60.0 BUN/Creatinine Ratio 19.1 Glucose 150 H Calcium 8.8 Phosphorus 3.0 D Total Bilirubin 0.1 L AST 18 ALT 13 L Alkaline Phosphatase 55 Total Protein 6.7 Albumin 3.4 L Globulin 3.3 Albumin/Globulin Ratio 1.0 08/27/18 09:14 WBC RBC Hgb Hct MCV MCH MCHC RDW Plt Count Neut % (Auto) Lymph % (Auto) [place] % (Auto) Eos % (Auto) Baso % (Auto) Neut # (Auto) PT 22.9 H INR 2.0 H Sodium Potassium Chloride Carbon Dioxide BUN Creatinine Estimated GFR BUN/Creatinine Ratio Glucose Calcium Phosphorus Total Bilirubin AST ALT Alkaline Phosphatase Total Protein Albumin Globulin Albumin/Globulin Ratio Assessment & Plan Plan: Assessment/Plan Narrative: IMPRESSION AND PLAN FEVER; MAX TEMP NOTED TODAY AT 97.3; PATIENT IS IMMUNO-COMPROMISED ON CHRONIC STEROIDS; CX REMAIN NEG; NOT SURE OF THE SOURCE OF ANY INFECTION ONGOING ALL WORKUPS ARE SO FAR NEG;COULD RELATED TO SWEET SYNDROME; CONT WITH ROCEPHIN AND DOXY FOR NOW; DIFLUCAN GIVEN WELL FOR BROADER COVERAGE; WBC DEC TO LESS THAN 3 TODAY; NO INDICATED FOR REVERSE ISOLATION AT THIS TIME; REPEAT ALL CX INDICATED ; MONITOR CLOSELY NEUTROPENIA; WILL CONT TO FOLLOW FOR NOW; ANC IS ABOUT 1600; WILL START ON REVERSE PRECAUTION WHEN INDICATED; DAILY LABS TO FOLLOW ANEMIA OF CD; MONITOR WITH SERIAL HH WARFARIN COAGULOPATHY; SUBTHERAPEUTIC ING; RESTART ON HOME DOSE TODAY ACUTE RESP FAILURE WITH HYPOXIA; CONT WITH OXYGEN THERAPY TO MAINTAIN PROPER OXYGEN SAT; RT CONSULTED AND ASSISTANCE APPRECIATED; BIPAP TO BE USED WHILE ASLEEP AT HOME SETTING; BACTERIAL PNA IS RULED OUT; OCCULT VIRAL LUNG INFECTION IS A POSSIBILITY; HOWEVER WILL KEEP ON ABX FOR NOW; CONT PULSE OX; REPEAT ABG INDICATED; CONT WITH INCENTIVE SPIROMETERY; STARTED ON IV STEROIDS AND HOLD HIS PO DOSE; ELEVATED BUN; POSS RELATED TO STEROID THERAPY; CONSIDER PRE-RENAL AZOTEMIA; ON IVF; MONITOR WITH SERIAL LABS REPORTED HX OF HF; HOWEVER, LAST ECHO WITH NORMAL EF AND PATIENT DOES NOT APPEAR TO HAVE ANY DECOMPENSATION CARDIAC VALDEZ AND NO S/S OF FLUID OVERLOAD; KEEP ON TELE FOR NOW; DAILY WT; STRICT IO; CONT LASIX CURRENTLY ORDERED OBESITY; OUTPATIENT MANAGEMENT ; LIFESTYLE CHANGES SWEET SYNDROME PER HX; THIS COULD BE PART OF HIS PRESENT SYMPTOMS; PATIENT HAS A SWOLLEN LYMPH NODES TO LEFT NEXT; WILL CONT WITH CURRENT MANAGEMENT INCLUDING IV STEROIDS AND ABX; MONITOR CLOSELY LOWER EXT NEUROPATHY; LIKELY RELATED TO DM; WILL START ON LYRICA; MARICEL HOSE POSS MILD VENOUS STASIS W/O DERMATITIS; MARICEL HOSE; CONT LASIX THERAPY PER HOME DOSE ADRENAL INSUFFICIENCY; ON IV STEROIDS FOR NOW DM2; ISS; HOME MEDS HIATAL HERNIA; CARAFATE AND PEPCID WHILE IN HOUSE PROGNOSIS IS GUARDED CONT CURRENT MANAGEMENT DE-ESCALATE ABX COVERAGE INDICATED IN THE AM IF IMPROVED CLINICALLY PT/OT AMBULATE TID OOB/IN CHAIR TID DC POSS IN NEXT 48-72 HRS Quality VTE Deep Vein Thrombosis/Pulmonary Embolism Present on Admission: No
--- NOTE | 2018-08-27 10:06 | P.PN_ITS ---
Subjective Date Patient Seen: 08/27/18 Time Patient Seen: 07:00 Interval history: FEELING BETTER THIS AM STILL WITH MILD TO MOD RESPIRATORY DIFFICULTIES MILD COUGH NO CP/CHEST PALPITATIONS Exam Vital Signs (past 8 hours): - 08/27/18 03:00 08/27/18 07:51 08/27/18 08:00 Temperature 96.2 F L 97.3 F L Pulse Rate 63 68 76 Respiratory Rate 20 18 20 Blood Pressure 128/76 133/69 Pulse Oximetry 100 99 94 Fraction of Inspired Oxygen 21 Oxygen Delivery Method Room Air Oxygen Flow Rate 0 Narrative Exam Narrative: NO ACUTE DISTRESS. PATIENT IS ALERT ORIENTED X3 VITAL SIGNS STABLE HEAD ATRAUMATIC NORMOCEPHALIC NECK : SUPPLE; SWOLLEN AREA / POSS LYMPH NODES TO LEFT NECK AREA; NO CAROTID BRUITS EYE: EOMI, PERRLA, NORMAL CONJUNCTIVA; NO JAUNDICE CHEST: REGULAR RATE. NO RUBS. PMI IS NON DISPLACED. NO MURMURS; NORMAL S1- S2 PULMONARY: DECREASED BS AT THE BASES. NO CRACKLES ; NO INCREASED DULLNESS TO PERCUSSION; WHEEZING NOTED THROUGHOUT ABDOMEN: SOFT. NON TENDER. NON DISTENDED. BOWEL SOUNDS ARE PRESENT IN ALL 4 QUADRANTS. NO MASS. EXTREMITIES: 1+ EDEMA NON PITTING BLE. NO CYANOSIS CLUBBING NOTED. NEURO: CRANIAL NERVES 2-12 GROSSLY INTACT. NO FOCAL NEUROLOGICAL DEFICIT NOTED. MSK: NORMAL RANGE OF MOTION FOR AGE. NO JOINT EFFUSION. SKIN: NORMAL FOR ETHNICITY; NO ECCHYMOSIS. NO LESION. GOOD TURGOR.; NO RASHES : NORMAL EXTERNAL GENITALIA. PSYCH : APPROPRIATE MOOD AND AFFECT. ALERT AWAKE ORIENTED X3 Objective Labs Result Diagrams: 08/27/18 07:30 08/27/18 07:30 Labs: Laboratory Results - last 24 hr 08/26/18 08/27/18 08/27/18 06:20 07:30 07:30 WBC 2.5 L RBC 3.06 L Hgb 9.8 L Hct 28.7 L MCV 93.7 MCH 32.0 MCHC 34.2 RDW 15.7 H Plt Count 150 Neut % (Auto) 64.5 Lymph % (Auto) 21.0 L [place] % (Auto) 12.6 Eos % (Auto) 0.4 L Baso % (Auto) 1.5 Neut # (Auto) 1600 PT INR Sodium 138 Potassium 4.1 Chloride 100 Carbon Dioxide 26 BUN 21 H Creatinine 1.10 Estimated GFR > 60.0 BUN/Creatinine Ratio 19.1 Glucose 150 H Calcium 8.8 Phosphorus 3.0 D Total Bilirubin 0.1 L AST 18 ALT 13 L Alkaline Phosphatase 55 Total Protein 6.7 Albumin 3.4 L Globulin 3.3 Albumin/Globulin Ratio 1.0 08/27/18 09:14 WBC RBC Hgb Hct MCV MCH MCHC RDW Plt Count Neut % (Auto) Lymph % (Auto) [place] % (Auto) Eos % (Auto) Baso % (Auto) Neut # (Auto) PT 22.9 H INR 2.0 H Sodium Potassium Chloride Carbon Dioxide BUN Creatinine Estimated GFR BUN/Creatinine Ratio Glucose Calcium Phosphorus Total Bilirubin AST ALT Alkaline Phosphatase Total Protein Albumin Globulin Albumin/Globulin Ratio Assessment & Plan Plan: Assessment/Plan Narrative: IMPRESSION AND PLAN FEVER; MAX TEMP NOTED TODAY AT 97.3; PATIENT IS IMMUNO- COMPROMISED ON CHRONIC STEROIDS; CX REMAIN NEG; NOT SURE OF THE SOURCE OF ANY INFECTION ONGOING ALL WORKUPS ARE SO FAR NEG;COULD RELATED TO SWEET SYNDROME ; CONT WITH ROCEPHIN AND DOXY FOR NOW; DIFLUCAN GIVEN WELL FOR BROADER COVERAGE; WBC DEC TO LESS THAN 3 TODAY; NO INDICATED FOR REVERSE ISOLATION AT THIS TIME; REPEAT ALL CX INDICATED ; MONITOR CLOSELY NEUTROPENIA; WILL CONT TO FOLLOW FOR NOW; ANC IS ABOUT 1600; WILL START ON REVERSE PRECAUTION WHEN INDICATED; DAILY LABS TO FOLLOW ANEMIA OF CD; MONITOR WITH SERIAL HH WARFARIN COAGULOPATHY; SUBTHERAPEUTIC ING; RESTART ON HOME DOSE TODAY ACUTE RESP FAILURE WITH HYPOXIA; CONT WITH OXYGEN THERAPY TO MAINTAIN PROPER OXYGEN SAT; RT CONSULTED AND ASSISTANCE APPRECIATED; BIPAP TO BE USED WHILE ASLEEP AT HOME SETTING; BACTERIAL PNA IS RULED OUT; OCCULT VIRAL LUNG INFECTION IS A POSSIBILITY; HOWEVER WILL KEEP ON ABX FOR NOW; CONT PULSE OX; REPEAT ABG INDICATED; CONT WITH INCENTIVE SPIROMETERY; STARTED ON IV STEROIDS AND HOLD HIS PO DOSE; ELEVATED BUN; POSS RELATED TO STEROID THERAPY; CONSIDER PRE-RENAL AZOTEMIA; ON IVF; MONITOR WITH SERIAL LABS REPORTED HX OF HF; HOWEVER, LAST ECHO WITH NORMAL EF AND PATIENT DOES NOT APPEAR TO HAVE ANY DECOMPENSATION CARDIAC VALDEZ AND NO S/S OF FLUID OVERLOAD; KEEP ON TELE FOR NOW; DAILY WT; STRICT IO; CONT LASIX CURRENTLY ORDERED OBESITY; OUTPATIENT MANAGEMENT ; LIFESTYLE CHANGES SWEET SYNDROME PER HX; THIS COULD BE PART OF HIS PRESENT SYMPTOMS; PATIENT HAS A SWOLLEN LYMPH NODES TO LEFT NEXT; WILL CONT WITH CURRENT MANAGEMENT INCLUDING IV STEROIDS AND ABX; MONITOR CLOSELY LOWER EXT NEUROPATHY; LIKELY RELATED TO DM; WILL START ON LYRICA; MARICEL HOSE POSS MILD VENOUS STASIS W/O DERMATITIS; MARICEL HOSE; CONT LASIX THERAPY PER HOME DOSE ADRENAL INSUFFICIENCY; ON IV STEROIDS FOR NOW DM2; ISS; HOME MEDS HIATAL HERNIA; CARAFATE AND PEPCID WHILE IN HOUSE PROGNOSIS IS GUARDED CONT CURRENT MANAGEMENT DE-ESCALATE ABX COVERAGE INDICATED IN THE AM IF IMPROVED CLINICALLY PT/OT AMBULATE TID OOB/IN CHAIR TID DC POSS IN NEXT 48-72 HRS Quality VTE Deep Vein Thrombosis/Pulmonary Embolism Present on Admission: No
--- NOTE | 2018-08-27 10:20 | PT.IPTN ---
Current Diagnoses Acute respiratory failure with hypoxia (08/25/18) Physical Therapy Treatment Note M2 PT-IP Current Condition Start: 08/25/18 15:36 Freq: NEEDED Status: Active Protocol: Document 08/25/18 14:25 AB (Rec: 08/25/18 15:46 AB [email or web address]) Physical Therapy Current Condition Current Condition Evaluation Date 08/25/18 Treatment Diagnosis fever; PNA; difficulty in walking; weakness Onset Date 08/25/18 M3 PT-IP Subjective Start: 08/25/18 15:36 Freq: NEEDED Status: Active Protocol: Document 08/27/18 10:20 GGD (Rec: 08/27/18 12:42 GGD [email or web address]) Subjective Physical Therapy Visit Type Type Treatment Note Visit Start Time 10:00 Visit Stop Time 10:20 Total Visit Minutes 20 Number of PAY PER CLICK STRATEGIST Visits 1 Physical Therapy Visit Comments Patient Comments Pt willing to ambulate. M4 PT-IP Mobility and Gait Start: 08/25/18 15:36 Freq: NEEDED Status: Active Protocol: Document 08/27/18 10:20 GGD (Rec: 08/27/18 12:42 GGD [email or web address]) PT-Transfer Assessment Sit to and From Stand Sit to and from Stand Standby Assistance Equipment Transfer Assistive Device Gait Belt Front Wheeled Walker Transfers Transfer Destination Chair Transfer Ability Level of Assist Standby Assistance Use of Upper Extremities Gait Assessment Gait Gait Assistance Required: Standby Assistance Distance (Feet) 225 Able to Maintain Weight Bearing Status Yes During Gait Assistive Devices Assistive Device Gait Belt Front Wheeled Walker Orthotic/Prosthetic Devices or Brace: No Factors Limiting Gait Function Factors Limiting Gait Function Decreased Activity Tolerance Respiratory Distress Comments Gait Comments O2 on RA at rest 99% and 96-93 % with activity. M5 PT-IP Objective Assessments Start: 08/25/18 15:36 Freq: NEEDED Status: Active Protocol: Document 08/25/18 14:25 AB (Rec: 08/25/18 15:46 AB [email or web address]) Orientation Orientation/Cognition Level of Alertness Alert Orientation Name Age Birthday Month Date Year Day of Week Place Situation Gross Range of Motion Lower Extremity ROM Assessment Within Functional Limits Strength Lower Extremity Strength Assessment Within Functional Limits Sensation Assessment Sensation Gross Sensation WNL M6 PT-IP Treatment Start: 08/25/18 15:36 Freq: NEEDED Status: Active Protocol: Document 08/26/18 11:59 DLM (Rec: 08/26/18 12:07 DLM [id number]) Physical Therapy Treatment Education Education Provided Safety Other Treatments Other Treatment Performed education for breathing techniques and energy management during mobility M7 PT-IP Assessment and Plan Start: 08/25/18 15:36 Freq: NEEDED Status: Active Protocol: Document 08/27/18 10:20 GGD (Rec: 08/27/18 12:42 GGD [email or web address]) PT Summary Assessment and Plan Summary Assessment Summary Pt improving slowly, he was able to progress his gait distance with min C/O of shortness of breath. He was safe and stable with gait with FWW. Safe for home D/C when medically stable. Frequency of Treatment Frequency Of Treatment Once a Day Treatment Plan Physical Therapy Treatment Plan Bed Mobility Training Transfer Training Gait Training Therapeutic Exercise Balance Retraining Discharge Planning Neuromuscular Re-ed Recommendations To Nursing Amount of Assist Needed Standby Assistance Discharge Recommendations PT Discharge Recommendations Home with Assistance
[2018-08-27] MEDS: NYSTATIN SUSP 500,000 UNIT/5 ML UDC 500000 UNIT PO ×2 (12:23→21:43)
[2018-08-27] MEDS: WARFARIN 2.5 MG TABLET PO (17:02)
[2018-08-28 00:05] VITALS: BP 127/71; PULSE 67; RESP 22; TEMP 36.4; O2SAT 98
[2018-08-28 00:22] VITALS: O2SAT 97
[2018-08-28] MEDS: FAMCICLOVIR 250 MG 250 EACH PO (02:49)
[2018-08-28] MEDS: DOXYCYCLINE 100 MG in SODIUM CHLORIDE 0.9% 100 ML IV (02:49)
[2018-08-28 03:40] VITALS: BP 130/73; PULSE 66; RESP 20; TEMP 36.5; O2SAT 97
[2018-08-28] MEDS: PANTOPRAZOLE 20 MG TABLET PO (05:53)
[2018-08-28] MEDS: ALBUTEROL 2.5 MG/3 ML NEB (ADULT) INH (06:02)
[2018-08-28 06:05] VITALS: PULSE 70; RESP 16; O2SAT 97
[2018-08-28 07:00] VITALS: O2SAT 95
[2018-08-28 08:01] VITALS: BP 123/72; PULSE 73; RESP 18; TEMP 36.3; O2SAT 96
[2018-08-28 08:01] LABS: INR 2.3 (0.9-1.3); Prothrombin Time 26.8 SECONDS (10.1-12.7)
[2018-08-28 08:10] LABS: Add Manual Diff / Slide Review NO; Basophils Percent Auto 1.5 % (0-2); Eosinophils Percent Auto 0.3 % (2-4); Hematocrit 30.5 % (41-53); Hemoglobin 10.4 g/dL (13.5-17.5); Lymphocytes Percent Auto 19.7 % (25-40); Mean Corpuscular HGB Conc 33.9 % (30-36); Mean Corpuscular Hemoglobin 31.6 PG (26-34); Mean Corpuscular Volume 93.1 fL (80-100); Monocytes Percent Auto 6.4 % (3-14); Neutrophils Absolute Auto 1900 /uL (1500-7000); Neutrophils Percent Auto 72.1 % (50-75); Platelet Count 166 X10^3/uL (150-400); Red Blood Cell Count 3.28 X10^6/uL (4.5-5.9); Red Cell Distribution Width 15.8 % (11.6-14.8); White Blood Cell Count 2.6 X10^3/uL (4.5-11.0)
[2018-08-28] MEDS: FUROSEMIDE 40 MG TABLET PO (08:12)
[2018-08-28] MEDS: POTASSIUM CHLORIDE 20 MEQ TAB PO (08:12)
[2018-08-28] MEDS: SUCRALFATE 1 GM TABLET PO (08:13)
[2018-08-28] MEDS: METFORMIN HCL 500 MG TABLET PO (08:14)
[2018-08-28] MEDS: NYSTATIN SUSP 500,000 UNIT/5 ML UDC 500000 UNIT PO (08:14)
[2018-08-28] MEDS: SIMETHICONE 80 MG TABLET PO (08:14)
[2018-08-28] MEDS: HEPARIN 5,000 UNIT/ML VIAL 5000 UNIT SUBCUT (08:14)
[2018-08-28] MEDS: PREGABALIN 75 MG CAPSULE PO (08:14)
[2018-08-28] MEDS: GRISEOFULVIN MICROSIZE 500 MG 500 EACH PO (08:15)
[2018-08-28 08:16] LABS: Alanine Aminotransferase 16 IU/L (21-72); Albumin 3.5 g/dL (3.5-5.0); Albumin Globulin Ratio 1.1 (1.0-2.8); Alkaline Phosphatase 53 U/L (38-126); Aspartate Aminotransferase 21 IU/L (17-59); BUN Creatinine Ratio 18.2 (6-22); Bilirubin Total 0.1 mg/dL (0.2-1.3); Blood Urea Nitrogen 20 mg/dL (9-20); Calcium 9.1 mg/dL (8.4-10.2); Carbon Dioxide 24 mmol/L (22-32); Chloride 102 mmol/L (98-107); Estimated Glomerular Filt Rate > 60.0 mL/min (>60); Globulin 3.3 g/dL (1.7-4.1); Glucose 176 mg/dL (80-110); HEMOLYSIS < 15 (0-50); Potassium 4.3 mmol/L (3.4-5.1); Sodium 139 mmol/L (137-145); Total Protein 6.8 g/dL (6.3-8.2)
[2018-08-28] MEDS: HYDROCORTISONE 100 MG/2 ML VIAL IV (08:16)
[2018-08-28] MEDS: CEFTRIAXONE 1 GM/50 ML FROZ.PIGGY IV (08:24)
[2018-08-28] MEDS: METOPROLOL IR 25 MG TABLET PO (09:18)
[2018-08-28] MEDS: SODIUM CHLORIDE 0.9% FLUSH 10 ML IV (09:19)
--- NOTE | 2018-08-28 09:27 | CM.DANOTE ---
Addendum entered by [place] Ledezma LPN 08/28/18 11:53: Did speak with PT Bossman who reviewed prior PT notes. He said he would recommend pt use this until he is feeling stronger, noting that it will help with energy conservation. Will update pt. Original Note: Addendum entered by [place] Ledezma LPN 08/28/18 11:45: Met with pt as planned. Introduced self and role. Pt has been ok'd for d/c home today and says he is glad to be able to go. His will be picking him up. He is noted to have coughing episodes during this conversation. He confirms that he does use his Bipap at night routinely. Says he really does not have home oxygen. My mother in law does and I sometimes use it, but not lately. RT has confirmed that he does not need this at home and does not qualify for his own. PT did see pt and has recommended a FWW. Pt said he did not realize they wanted him to use it at home. Says he does have one, he just doesn't use it. Agreed to ask PT team to clarify this with him before he leaves. P: at this point plan is home today and with PCP followup. Original Note: Discharge Planning/Care Management DCP: assessment: case received yesterday, EMR reviewed and discussed POC in Team Rounds. Pt is a 78 year old male who admitted to care of hospitalist team 08/25 afternoon. PCP: Dr. Antione Russell Payer: Medicare and [facility] Admission status: INPT: confirmed by [facility] RN team. RT as well as OT and PT were ordered. P: check in with pt and follow for d/c issues and options. CM Discharge Assessment Start: 08/28/18 09:25 Freq: Status: Active Protocol: Document 08/28/18 09:25 ITV (Rec: 08/28/18 09:27 ITV [email or web address]) Discharge Planning Assessment Advance Directives? Yes: POLST IS SCANNED IN Advance Directives on File No History Provided By Patient Medical Record Prior Living Arrangements House Household Members spouse Independent with ADL's Yes Is patient alert and oriented? Yes Comment uses Bipap at night Discharge Plan Home Transportation Arrangement Spouse can provide transport Whiteboard Updated in Patient Room with Yes name and ext. # of Meter Mechanic Review Status In Process Next Review Type Continued Stay Review
--- NOTE | 2018-08-28 13:41 | P.DS_ITS ---
History of Present Illness Chief complaint: Fever Narrative: THIS IS A VERY PLEASANT 78 YO MALE WITH A PAST MEDICAL HX SIGNIFICANT FOR MDS, EXT NEUROPATHY W/O DIABETES, SWEET SYNDROME AND OBESE PATIENT PRESENTED TO THE ED WITH 2 WEEKS HX OF HIGH TEMPERATURE MOSTLY IN THE AM ; HIGHEST THIS AM 104 IN ANY CASE, PATIENT ALSO REPORTED HAVING DEVELOPED SOME SOB AT REST AND VOMITING ALSO FOR LAST FEW DAYS REPORT OF RLE SWELLING ALSO RELATED TO US BY SPOUSE AT BEDSIDE - HE DENIED ANY SICK CONTACT; NO RECENT ADMISSION TO HOSPITALS; NO TRIP OUTSIDE OF COUNTRY - NO BLOOD PER RECTUM OR IN URINE - NO DIFF SWALLOWING HOWEVER, STATED THAT SOME OF THE LYMPH NODES AT THE LEFT SIDE OF HIS NECK HAS BEEN SWOLLEN FOR LAST 2-3 DAYS - NO OTHER COMPLAINTS Discharge Providers Date of admission: 08/25/18 12:08 Primary care physician: Antione Russell MD Consults: 08/25/18 11:38 Consult to Discharge Planning Routine Comment: Consult to Occupational Therapy Evaluate & Treat Comment: Physician Instructions: Evaluate and treat Consult to Physical Therapy Evaluate & Treat Comment: Physician Instructions: Evaluate and Treat 08/26/18 08:40 Consult to Respiratory Therapy Evaluate & Treat Comment: Physician Instructions: Evaluate and treat Discharge provider: Keely Naidu DO Discharge Date: 08/28/18 Summary Discharge Diagnosis: POSS RECURRENT SWEET SYNDROME; TREATED WITH ABX; FEVER RESOLVED; SWOLLEN LYMPH NODES IMPROVED WELL; DC ON ABX FEVER; RESOLVED OVER LAST 24 HRS NEUTROPENIA; WILL CONT TO FOLLOW FOR NOW; ANC IS ABOUT 1600; ANEMIA OF CD; MONITOR WITH SERIAL HH WARFARIN COAGULOPATHY; SUBTHERAPEUTIC ING; RESTART ON HOME DOSE TODAY ACUTE RESP FAILURE WITH HYPOXIA; DC ON HOME DOSE OF STEROID; BIPAP WHILE ASLEEP ELEVATED BUN; POSS RELATED TO STEROID THERAPY; REPORTED HX OF HF; OBESITY; OUTPATIENT MANAGEMENT ; LIFESTYLE CHANGES LOWER EXT NEUROPATHY; LIKELY RELATED TO DM; WILL START ON LYRICA; MARICEL HOSE POSS MILD VENOUS STASIS W/O DERMATITIS; MARICEL HOSE; CONT LASIX THERAPY PER HOME DOSE ADRENAL INSUFFICIENCY; ON STEROIDS DM2; ISS; HOME MEDS HIATAL HERNIA; CARAFATE AND PEPCID WHILE IN HOUSE Hospital Course: PATIENT ADMITTED WITH FEVER AND NO SPECIFIC SITE FOR INFECTION FOUND ON LABS AT THIS TIME, I SUSPECT POSS RECURRENT SWEET SYNDROME DUE TO REPORTED LYMPH NODES WHICH ARE SWOLLEN IN THE LEFT NECK AREA PATIENT RESPONDED WELL TO TREATMENT AND APPEARS STABLE CLINICALLY WILL DC ON OMNICEF AND DOXY FOR 10 DAYS ADDITIONAL MANAGEMENT PER OUTPATIENT PROVIDERS Status at Discharge Functional status at discharge: independent ambulation Overall status at discharge: patient is back to baseline Time Spent with Patient Greater than 30 minutes Exam Vital Signs (past 8 hours): - 08/28/18 06:05 08/28/18 07:00 08/28/18 08:01 Temperature 97.3 F L Pulse Rate 70 73 Respiratory Rate 16 18 Blood Pressure 123/72 Pulse Oximetry 97 95 96 Fraction of Inspired Oxygen 21 Oxygen Delivery Method Room Air Oxygen Flow Rate 0 Narrative Exam Narrative: NO ACUTE DISTRESS. PATIENT IS ALERT ORIENTED X3 VITAL SIGNS STABLE HEAD ATRAUMATIC NORMOCEPHALIC NECK : SUPPLE; SWOLLEN AREA / POSS LYMPH NODES TO LEFT NECK AREA; NO CAROTID BRUITS EYE: EOMI, PERRLA, NORMAL CONJUNCTIVA; NO JAUNDICE CHEST: REGULAR RATE. NO RUBS. PMI IS NON DISPLACED. NO MURMURS; NORMAL S1- S2 PULMONARY: DECREASED BS AT THE BASES. NO CRACKLES ; NO INCREASED DULLNESS TO PERCUSSION; WHEEZING NOTED THROUGHOUT ABDOMEN: SOFT. NON TENDER. NON DISTENDED. BOWEL SOUNDS ARE PRESENT IN ALL 4 QUADRANTS. NO MASS. EXTREMITIES: 1+ EDEMA NON PITTING BLE. NO CYANOSIS CLUBBING NOTED. NEURO: CRANIAL NERVES 2-12 GROSSLY INTACT. NO FOCAL NEUROLOGICAL DEFICIT NOTED. MSK: NORMAL RANGE OF MOTION FOR AGE. NO JOINT EFFUSION. SKIN: NORMAL FOR ETHNICITY; NO ECCHYMOSIS. NO LESION. GOOD TURGOR.; NO RASHES : NORMAL EXTERNAL GENITALIA. PSYCH : APPROPRIATE MOOD AND AFFECT. ALERT AWAKE ORIENTED X3 Objective Labs Result Diagrams: 08/28/18 07:33 08/28/18 07:33 Labs: Laboratory Results - last 24 hr 08/28/18 08/28/18 08/28/18 07:33 07:33 07:33 WBC 2.6 L RBC 3.28 L Hgb 10.4 L Hct 30.5 L MCV 93.1 MCH 31.6 MCHC 33.9 RDW 15.8 H Plt Count 166 Neut % (Auto) 72.1 Lymph % (Auto) 19.7 L Addison % (Auto) 6.4 Eos % (Auto) 0.3 L Baso % (Auto) 1.5 Neut # (Auto) 1900 PT 26.8 H INR 2.3 H Sodium 139 Potassium 4.3 Chloride 102 Carbon Dioxide 24 BUN 20 Creatinine 1.10 Estimated GFR > 60.0 BUN/Creatinine Ratio 18.2 Glucose 176 H Calcium 9.1 Total Bilirubin 0.1 L AST 21 ALT 16 L Alkaline Phosphatase 53 Total Protein 6.8 Albumin 3.5 Globulin 3.3 Albumin/Globulin Ratio 1.1 Discharge Plan Discharge Plan Patient Disposition: Home Discharge comment: dc to home act as kane cardiac diet f/u with pcp 2-7 days Discharge Med Rec/Prescriptions Prescriptions: New sucralfate 1 gram Tablet 1 gm PO ACHS 30 Days RF: 0 cefdinir 300 mg capsule 300 mg PO Q12H 10 Days Qty: 20 RF: 0 doxycycline hyclate 100 mg tablet 100 mg PO BID 10 Days Qty: 20 RF: 0 Continue omeprazole 20 mg capsule,delayed release(DR/EC) 20 mg PO BEDTIME Qty: 30 RF: 5 metformin [Glucophage] 500 mg tablet 500 mg PO BID Qty: 180 RF: 0 albuterol sulfate 2.5 mg /3 mL (0.083 %) solution for nebulization 2.5 mg INHALATION Q4H PRN (Reason: shortness of breath or wheezing) Qty: 90 RF: 2 famciclovir 250 mg Tablet 250 mg PO Q12H Qty: 120 RF: 2 potassium chloride [Klor-Con M20] 20 mEq tablet,ER particles/crystals 20 meq PO TID RF: 0 griseofulvin microsize 500 mg Tablet 500 mg PO BID RF: 0 acetaminophen 325 mg Capsule 650 mg PO PRN PRN (Reason: Fever) RF: 0 furosemide 40 mg tablet 40 mg PO DAILY RF: 0 warfarin 2.5 mg tablet 2.5 mg PO QPM RF: 0 hydrocortisone 10 mg tablet 40 mg PO BID RF: 0 warfarin [Coumadin] 1 mg tablet 1 mg PO MOWEFR RF: 0 metoprolol tartrate 25 mg Tablet 25 mg PO BID RF: 0 Glucose: Test Strips 1 str miscellaneous DIRECTED RF: 0 Changed hydrocortisone 10 mg Tablet 20 mg PO QPM Qty: 0 RF: 0 Discontinued amoxicillin-pot clavulanate [Augmentin] 875-125 mg Tablet 1 tab PO Q12H 7 Days Qty: 14 RF: 0 Follow up/Referrals: Antione Russell MD [Primary Care Provider] - Provider Discharge Instructions Diet: Carb-consistent/Diabetic, Low-fat and Low-cholesterol Skin/Wound/Dressing Care Report to your healthcare provider any signs of infection, such as:: chills, fever, night sweats, increased pain, unusual drainage and unusual redness Visit Report/Discharge Packet Visit Report Forms: Stroke Signs & Symptoms Discharge Data Primary Care Provider: Antione Russell Attending Provider: Keely Naidu Admit Date/Time: 08/25/18 12:08 Discharges patient from system. Discharge Date/Time: 08/28/18 12:15 Quality VTE Deep Vein Thrombosis/Pulmonary Embolism Present on Admission: No
== END 2018-08-28 12:15 | disposition home or self-care (01) | DRG 606 ==
LOC: ED 12:07 → AC 12:08
PROVIDERS: Admitting Provider Hospitalist; Emergency Provider Emergency Medicine; Family Provider Family Medicine; PCP Student in an Organized Health Care Education/Training Program; Visit Provider Hospitalist
DX: L98.2 Febrile neutrophilic dermatosis [Sweet] (principal); J96.01 Acute respiratory failure with hypoxia; E27.40 Unspecified adrenocortical insufficiency; D70.9 Neutropenia, unspecified; E11.40 Type 2 diabetes mellitus with diabetic neuropathy, unspecified; Z79.84 Long term (current) use of oral hypoglycemic drugs; D46.9 Myelodysplastic syndrome, unspecified; K21.9 Gastro-esophageal reflux disease without esophagitis; Z87.891 Personal history of nicotine dependence; Z79.52 Long term (current) use of systemic steroids; Z79.01 Long term (current) use of anticoagulants
CPT/HCPCS: 36415; 36592; 36600; 71045; 71046; 71275; 80053; 81001; 81003; 82805; 82962; 83605; 83735; 83880; 84100; 84145; 85025; 85610; 87040; 87070; 87077; 87400; 93005; 93010; 93970; 94640; 94660; 94760; 94762; 96361; 96365; 96366; 96375; 97116; 97161; 97165; 99215; 99284; 99285; J0696; J1642; J1644; J1720; J1940; J2270; J2405; J3370; J7613; Q9967

== ENCOUNTER → 2018-09-21 12:23 | Outpatient (CLI) | payer MEDICARE, OTHER, SELFPAY ==
[2018-08-25 13:06] VITALS: BMI 32.3
[2018-09-21 12:55] LABS: Add Manual Diff / Slide Review NO; Basophils Percent Auto 0.9 % (0-2); Eosinophils Percent Auto 0.2 % (2-4); Hematocrit 38.4 % (41-53); Hemoglobin 12.6 g/dL (13.5-17.5); Mean Corpuscular HGB Conc 32.9 % (30-36); Mean Corpuscular Hemoglobin 31.8 PG (26-34); Mean Corpuscular Volume 96.7 fL (80-100); Monocytes Percent Auto 3.9 % (3-14); Neutrophils Absolute Auto 5800 /uL (1500-7000); Platelet Count 160 X10^3/uL (150-400); Red Blood Cell Count 3.97 X10^6/uL (4.5-5.9); Red Cell Distribution Width 18.1 % (11.6-14.8); White Blood Cell Count 6.6 X10^3/uL (4.5-11.0)
== END ==
PROVIDERS: Family Provider Student in an Organized Health Care Education/Training Program; PCP Student in an Organized Health Care Education/Training Program
DX: D46.9 Myelodysplastic syndrome, unspecified (principal)
CPT/HCPCS: 36415; 85025

== ENCOUNTER → 2018-10-07 15:35 | Outpatient (CLI) | payer MEDICARE, OTHER, SELFPAY ==
[2018-08-25 13:06] VITALS: BMI 32.3
[2018-10-07 16:20] LABS: Alanine Aminotransferase 29 IU/L (21-72); Albumin 4.2 g/dL (3.5-5.0); Albumin Globulin Ratio 1.3 (1.0-2.8); Alkaline Phosphatase 55 U/L (38-126); Aspartate Aminotransferase 23 IU/L (17-59); Bilirubin Total 0.3 mg/dL (0.2-1.3); Bilirubin Unconjugated 0.1 mg/dL (0.0-1.1); Globulin 3.3 g/dL (1.7-4.1); HEMOLYSIS < 15 (0-50); Total Protein 7.5 g/dL (6.3-8.2)
== END ==
PROVIDERS: Family Provider Student in an Organized Health Care Education/Training Program; PCP Student in an Organized Health Care Education/Training Program; Visit Provider Dermatology
DX: L98.2 Febrile neutrophilic dermatosis [Sweet] (principal); B35.4 Tinea corporis
CPT/HCPCS: 36415; 80076

== ENCOUNTER → 2018-12-21 14:47 | Outpatient (CLI) | payer MEDICARE, OTHER, SELFPAY ==
[2018-08-25 13:06] VITALS: BMI 32.3
--- NOTE | 2018-12-21 | DI.RAD.S_ITS ---
PROCEDURE: XR CHEST 2V INDICATIONS: MYELODYSPLASTIC SYNDROME TECHNIQUE: 2 views of the chest were acquired. COMPARISON: [facility], CR, XR CHEST 2V, 08/26/2018, 9:16. [facility], CR, XR CHEST 1V, 08/25/2018, 8:35. FINDINGS: Surgical changes and devices: Port-A-Cath from left-sided approach extends in normal position.. Lungs and pleura: Lungs are somewhat difficult to accurately assess due to chronic asymmetric elevation of the right hemidiaphragm with subsequent basilar atelectasis right greater than left.. No pleural effusions or pneumothorax. Mediastinum: Mediastinal contours are normal. Heart size is normal. Bones and chest wall: No suspicious bony abnormalities. Soft tissues appear unremarkable. IMPRESSION: Chronic elevation of the right hemidiaphragm when compared to that on the left with secondary atelectasis. No definite acute disease. Port-A-Cath from left-sided approach in normal position. Dictated by: Britton Gerardo M.D. on 12/21/2018 at 15:57 Approved by: Britton Gerardo M.D. on 12/21/2018 at 15:58
== END ==
PROVIDERS: Family Provider Student in an Organized Health Care Education/Training Program; PCP Student in an Organized Health Care Education/Training Program
DX: D46.9 Myelodysplastic syndrome, unspecified (principal); R53.83 Other fatigue; J98.11 Atelectasis; Z95.828 Presence of other vascular implants and grafts
CPT/HCPCS: 71046

== ENCOUNTER → 2019-03-17 11:29 | Outpatient (ROUT) | payer OTHER, MEDICARE, SELFPAY ==
[2018-08-25 13:06] VITALS: BMI 32.3
[2019-03-17 11:49] LABS: Hematocrit 30.4 % (41-53); Hemoglobin 9.8 g/dL (13.5-17.5); Mean Corpuscular HGB Conc 32.1 % (30-36); Mean Corpuscular Hemoglobin 35.8 PG (26-34); Mean Corpuscular Volume 111.6 fL (80-100); Platelet Count 71 X10^3/uL (150-400); Red Blood Cell Count 2.73 X10^6/uL (4.5-5.9); Red Cell Distribution Width 20.7 % (11.6-14.8); White Blood Cell Count 6.9 X10^3/uL (4.5-11.0)
[2019-03-17 11:50] LABS: Add Manual Diff / Slide Review YES
[2019-03-17 12:29] LABS: Neutrophils Absolute Manual 6417 /uL (3000-5900); Total Cells Counted 100
[2019-03-17 12:30] LABS: Anisocytosis 2+; Macrocytosis 1+; Platelet Estimate Decreased on smear
[2019-03-17 12:31] LABS: Hypochromasia 1+; Poikilocytosis 1+; Polychromasia 1+
== END ==
PROVIDERS: Family Provider Student in an Organized Health Care Education/Training Program; PCP Student in an Organized Health Care Education/Training Program; Visit Provider Family Medicine
DX: D46.9 Myelodysplastic syndrome, unspecified (principal)
CPT/HCPCS: 85025

== ENCOUNTER → 2019-03-25 13:45 | Outpatient (ROUT) | payer OTHER, MEDICARE, SELFPAY ==
[2018-08-25 13:06] VITALS: BMI 32.3
[2019-03-25 14:17] LABS: Alanine Aminotransferase 21 IU/L (21-72); Albumin 3.9 g/dL (3.5-5.0); Albumin Globulin Ratio 1.3 (1.0-2.8); Alkaline Phosphatase 86 U/L (38-126); Aspartate Aminotransferase 12 IU/L (17-59); BUN Creatinine Ratio 28.8 (6-22); Bilirubin Total 0.4 mg/dL (0.2-1.3); Blood Urea Nitrogen 23 mg/dL (9-20); Calcium 9.2 mg/dL (8.4-10.2); Carbon Dioxide 26 mmol/L (22-32); Chloride 96 mmol/L (98-107); Estimated Glomerular Filt Rate > 60.0 mL/min (>60); Globulin 2.9 g/dL (1.7-4.1); Glucose 372 mg/dL (80-110); HEMOLYSIS < 15 (0-50); Sodium 136 mmol/L (137-145); Total Protein 6.8 g/dL (6.3-8.2)
== END ==
PROVIDERS: Family Provider Student in an Organized Health Care Education/Training Program; PCP Student in an Organized Health Care Education/Training Program; Visit Provider Family Medicine
DX: D46.9 Myelodysplastic syndrome, unspecified (principal)
CPT/HCPCS: 80053